=== PATIENT | male | born 1940 | race Caucasian/White ===

== ENCOUNTER 2017-12-08 15:46 | Emergency (ER) | payer MEDICARE, OTHER ==
[2017-12-08] MEDS ORDERED: BABY ASPIRIN 81 MG CHEW PO ONE (15:57)
[2017-12-08] MEDS ORDERED: MORPHINE SULFATE 2 MG INJ IV ONE (15:57)
[2017-12-08] MEDS ORDERED: Nitrostat 0.4 MG (ED) SL ONE ×2 (15:57→16:43)
--- NOTE | 2017-12-08 15:57 | ERPHSYRPT ---
- History of Present Illness Time Seen by Provider: 12/08/17 15:50 Historian: patient, family Exam Limitations: no limitations Physician History: 77 y/o white male with h/o cabg and ami in past presents with central substernal , sharp cp with radiation down bilat arms. began at 1330 today. similar episode 2 days ago but today sx have not spontaneously resolved. denies soa and denies abd pain. pt did not take any asa or use ntg. 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 pts cabg was performed at [facility] in May [address] Delgado Timing/Duration: today Activities at Onset: none Quality: sharpness, stabbing Location: substernal, central Chest Pain Radiation: arm (bilat) Severity of Pain-Max: moderate Severity of Pain-Current: moderate Modifying Factors: Improves With: nothing Associated Symptoms: No nausea, No vomiting, No palpitations, No heartburn, No abdominal pain, No shortness of breath, No cough, No hurts to breathe, No diaphoresis, No fatigue, No weakness, No syncope, No rash, No dizziness, No edema, No back pain Prior Chest Pain/Cardiac Workup: cardiac cath, echocardiography, heart attack Nitro Today/Relief: no nitro taken today Aspirin Treatment Today: no aspirin today Allergies/Adverse Reactions: No Known Drug Allergies Allergy (Verified 01/27/18 07:37) Home Medications: Aspirin 81 gm Chew [Baby Aspirin 81 mg Chew] 81 mg PO DAILY 12/08/17 [ History] Carvedilol 6.25 mg PO DAILY 12/08/17 [History] Fluticasone/Salmeterol 115/21 [Advair Hfa 115/21 Common canister*] 2 puffs PO DAILY 12/08/17 [History] Furosemide 40 mg PO DAILY 12/08/17 [History] Metformin HCl 500 mg [Glucophage 500 MG] 500 mg PO DAILY 12/08/17 [History ] Multivitamin/Iron/Folic Acid [Centrum Adults Tablet] 1 each PO DAILY 12/08/17 [ History] [place]-3 Fatty Acids/Fish Oil [Fish Oil 1,000 mg Capsule] 1 each PO DAILY [History] Potassium Chloride [Klor-Con M10] 10 mg PO DAILY 12/08/17 [History] Pravastatin Sodium [Pravachol] 40 mg PO DAILY 12/08/17 [History] Tiotropium [place] [Spiriva] 1 neb PO DAILY 12/08/17 [History] glipiZIDE [Glipizide] 5 mg PO BID 12/08/17 [History] - Review of Systems Constitutional: No Symptoms, No Fever Eyes: No Symptoms, No Discharge, No Eye Pain Ears, Nose, & Throat: No Symptoms, No Ear Pain Respiratory: No Symptoms, No Cough, No Dyspnea, No Stridor, No Wheezing Cardiac: Chest Pain, No Palpitations, No Syncope Abdominal/Gastrointestinal: No Symptoms, No Abdominal Pain, No Nausea, No Vomiting, No Diarrhea Genitourinary Symptoms: No Symptoms, No Dysuria, No Frequency, No Hematuria Musculoskeletal: No Symptoms, No Back Pain, No Neck Pain, No Fall, No Injury Skin: No Symptoms Neurological: No Symptoms Psychological: No Symptoms Endocrine: No Symptoms Hematologic/Lymphatic: No Symptoms Immunological/Allergic: No Symptoms All Other Systems: Reviewed and Negative - Past Medical History Pertinent Past Medical History: Yes Neurological History: No Pertinent History ENT History: No Pertinent History Cardiac History: Coronary Artery Disease, Myocardial Infarction ([place]) Respiratory History: No Pertinent History Endocrine Medical History: No Pertinent History Musculoskeletal History: No Pertinent History GI Medical History: No Pertinent History History: No Pertinent History Psycho-Social History: No Pertinent History Male Reproductive Disorders: No Pertinent History - Past Surgical History Past Surgical History: Yes Cardiac: CABG Respiratory: No Pertinent History Gastrointestinal: No Pertinent History Genitourinary: No Pertinent History Musculoskeletal: No Pertinent History Male Surgical History: No Pertinent History - Nursing Vital Signs Nursing Vital Signs: Initial Vital Signs Pulse Rate 69 12/08/17 15:56 Respiratory Rate 22 12/08/17 15:56 Blood Pressure 172/80 12/08/17 15:56 O2 Sat by Pulse Oximetry 96 12/08/17 15:56 Pain Scale Pain Intensity 0 - Physical Exam General Appearance: mild distress, alert, anxiety Eye Exam: PERRL/EOMI, eyes nml inspection Ears, Nose, Throat Exam: normal ENT inspection, TMs normal, moist mucous membranes Neck Exam: normal inspection, non-tender, supple, full range of motion Respiratory Exam: normal breath sounds, chest tenderness, lungs clear, No respiratory distress, No airway intact, No accessory muscle use, No rhonchi, No wheezing, No stridor Cardiovascular Exam: regular rate/rhythm, normal heart sounds, normal peripheral pulses Gastrointestinal/Abdomen Exam: soft, normal bowel sounds, No tenderness, No guarding, No rebound Rectal Exam: not done Back Exam: normal inspection, normal range of motion, No CVA tenderness, No vertebral tenderness Extremity Exam: normal inspection, normal range of motion, pelvis stable Neurologic Exam: alert, oriented x 3, cooperative, grey goods examiner II-XII nml as tested Skin Exam: normal color, warm, dry Lymphatic Exam: No adenopathy SpO2 Interpretation: normal Oxygen Delivery: Room Air - Course Nursing assessment & vital signs reviewed: Yes EKG Interpreted by Me: RATE, Sinus Rhythm, Left [place] Deviation, NORMAL INTERVALS , NORMAL QRS (no comparison EKG; lexiscan 07/07/17 no evidence of acute reversible ischemia), Non-specific ST Changes Ordered Tests: Medication Summary Discontinued Medications Generic Name Dose Route Start Last Admin Trade Name Freq PRN Reason Stop Dose Admin Aspirin 324 mg 12/08/17 15:57 12/08/17 16:51 Baby Aspirin 81 Mg Chew PO 12/08/17 15:58 324 mg STAT ONE Administration Aspirin Confirm 12/08/17 16:42 Baby Aspirin 81 Mg Chew Administered 12/08/17 16:43 Dose 324 mg .ROUTE .STK-MED ONE Morphine Sulfate 2 mg 12/08/17 15:57 12/08/17 16:51 Morphine Sulfate 2 Mg Inj IV 12/08/17 15:58 2 mg STAT ONE Administration Morphine Sulfate Confirm 12/08/17 16:43 Morphine Sulfate 2 Mg Inj Administered 12/08/17 16:44 Dose 2 mg .ROUTE .STK-MED ONE Nitroglycerin 0.4 mg 12/08/17 15:57 12/08/17 16:51 Nitrostat 0.4 Mg (Ed) SL 12/08/17 15:58 0.4 mg STAT ONE Administration Nitroglycerin Confirm 12/08/17 16:43 Nitrostat 0.4 Mg (Ed) Administered 12/08/17 16:44 Dose 0.4 mg SL .STK-MED ONE Lab/Rad Data: Laboratory Result Diagrams 12/08/17 15:57 12/08/17 15:57 Laboratory Results 12/08/17 12/08/17 12/08/17 Range/Units 15:57 15:57 15:57 WBC (4.0-10.5) K/mm3 RBC (4.1-5.6) M/mm3 Hgb (12.5-18.0) gm/dl Hct (42-50) % MCV (78-100) fl MCH (26-32) pg MCHC (32-36) g/dl RDW (11.5-14.0) % Plt Count (150-450) K/mm3 MPV (6-9.5) fl Gran % (36.0-66.0) % Eos # (Auto) (0-0.5) Absolute Lymphs (auto) (1.0-4.6) Absolute Monos (auto) (0.0-1.3) Lymphocytes % (24.0-44.0) % Monocytes % (0.0-12.0) % Eosinophils % (0.00-5.0) % Basophils % (0.0-0.4) % Absolute Granulocytes (1.4-6.9) Basophils # (0-0.4) PT 11.5 (8.83-12.87) SECONDS INR 0.99 (0.8-3.0) D-Dimer 801 H* (215-500) ng/mL Sodium 138 (137-145) mmol/L Potassium 4.6 (3.5-5.1) mmol/L Chloride 101 (98-107) mmol/L Carbon Dioxide 25 (22-30) mmol/L Anion Gap 16.6 H (5-15) MEQ/L BUN 22 H (9-20) mg/dL Creatinine 1.33 H (0.66-1.25) mg/dL Estimated GFR 55.6 ML/MIN Glucose 202 H (74-106) mg/dL Calcium 9.4 (8.4-10.2) mg/dL Total Bilirubin 0.60 (0.2-1.3) mg/dL AST 40 (17-59) U/L ALT 25 (0-50) U/L Alkaline Phosphatase 64 (38-126) U/L Troponin I 0.198 H* (0.000-0.034) ng/mL NT-Pro-B Natriuret Pep 1060 (0-1800) pg/mL Serum Total Protein 7.9 (6.3-8.2) g/dL Albumin 4.5 (3.5-5.0) g/dL 12/08/17 Range/Units 15:57 WBC 8.5 (4.0-10.5) K/mm3 RBC 5.34 (4.1-5.6) M/mm3 Hgb 15.4 (12.5-18.0) gm/dl Hct 45.3 (42-50) % MCV 84.8 (78-100) fl MCH 28.8 (26-32) pg MCHC 34.0 (32-36) g/dl RDW 13.9 (11.5-14.0) % Plt Count 193 (150-450) K/mm3 MPV 11.3 H (6-9.5) fl Gran % 55.4 (36.0-66.0) % Eos # (Auto) 0.33 (0-0.5) Absolute Lymphs (auto) 2.56 (1.0-4.6) Absolute Monos (auto) 0.86 (0.0-1.3) Lymphocytes % 30.2 (24.0-44.0) % Monocytes % 10.1 (0.0-12.0) % Eosinophils % 3.9 (0.00-5.0) % Basophils % 0.4 (0.0-0.4) % Absolute Granulocytes 4.71 (1.4-6.9) Basophils # 0.03 (0-0.4) PT (8.83-12.87) SECONDS INR (0.8-3.0) D-Dimer (215-500) ng/mL Sodium (137-145) mmol/L Potassium (3.5-5.1) mmol/L Chloride (98-107) mmol/L Carbon Dioxide (22-30) mmol/L Anion Gap (5-15) MEQ/L BUN (9-20) mg/dL Creatinine (0.66-1.25) mg/dL Estimated GFR ML/MIN Glucose (74-106) mg/dL Calcium (8.4-10.2) mg/dL Total Bilirubin (0.2-1.3) mg/dL AST (17-59) U/L ALT (0-50) U/L Alkaline Phosphatase (38-126) U/L Troponin I (0.000-0.034) ng/mL NT-Pro-B Natriuret Pep (0-1800) pg/mL Serum Total Protein (6.3-8.2) g/dL Albumin (3.5-5.0) g/dL - Progress Progress: improved, re-examined Air Movement: good Progress Note: 12/08/17 17:18 pt has an elevated d dimer and elevated troponin. 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 Nicholson, at 1710. i reviewed pts hx, condition, lab, ekg, cxr results with him. he is aware cta chest results pending. i will notify him if cta results positive. he accepts pt for transfer. he states no additional medications necessary at this time for transfer. Discussed with : Caprice Counseled pt/family regarding: lab results, diagnosis, need for follow-up, rad results - Departure Time of Disposition: 17:22 Departure Disposition: Transfer Clinical Impression: Chest pain, Elevated troponin, Elevated d-dimer Condition: Stable Critical Care Time: Yes Critical Care Time(excluding separately billable procedures): 30-74 minutes Referrals: CICI SAMUELS [Primary Care Provider] -
[2017-12-08 16:11] LABS: BASOPHIL % 0.4 % (0.0-0.4); Basophil (Absolute #) 0.03 (0-0.4); Eosinophil % 3.9 % (0.00-5.0); Eosinophil (Absolute #) 0.33 (0-0.5); Granulocyte Absolute (ANC) 4.71 (1.4-6.9); Granulocytes % 55.4 % (36.0-66.0); Hematocrit 45.3 % (42-50); Hemoglobin 15.4 gm/dl (12.5-18.0); Lymphocyte (Absolute #) 2.56 (1.0-4.6); Lymphocytes % 30.2 % (24.0-44.0); Mean Cell Volume 84.8 fl (78-100); Mean Corpuscular Hemoglobin 28.8 pg (26-32); Mean Platelet Volume 11.3 fl (6-9.5); Monocyte (Absolute #) 0.86 (0.0-1.3); Monocytes % 10.1 % (0.0-12.0); Platelet Count 193 K/mm3 (150-450); Red Blood Count 5.34 M/mm3 (4.1-5.6); Red Cell Distribution Width 13.9 % (11.5-14.0); White Blood Count 8.5 K/mm3 (4.0-10.5)
[2017-12-08 16:31] LABS: INR 0.99 (0.8-3.0)
[2017-12-08] MEDS ORDERED: BABY ASPIRIN 81 MG CHEW ONE (16:42)
[2017-12-08] MEDS ORDERED: MORPHINE SULFATE 2 MG INJ ONE (16:43)
[2017-12-08 16:44] LABS: ALBUMIN 4.5 g/dL (3.5-5.0); ANION GAP 16.6 MEQ/L (5-15); BILIRUBIN,TOTAL 0.6 mg/dL (0.2-1.3); Calcium 9.4 mg/dL (8.4-10.2); Creatinine 1 1.33 mg/dL (0.66-1.25); Potassium 4.6 mmol/L (3.5-5.1); Total Protein 7.9 g/dL (6.3-8.2)
--- NOTE | 2017-12-08 16:52 | XRAY ---
Exam: AP upright portable chest film from 12/08/2017. Comparison: AP portable chest film from 05/28/[address] of the chest without IV contrast from 12/14/2010. Indication: Chest pain and shortness of breath today, past history of "heart attack" and triple bypass surgery in 2010, history of COPD. Findings: The heart size appears within normal limits. Surgical clips overlie the left aspect of the heart. There are also midline sternal wires consistent with prior CABG. There is mild tortuosity of the descending thoracic aorta. There is mild elevation of the right hemidiaphragm. There is some subtle chronic peripheral interstitial lung markings at the peripheral aspect of the left lung and the right lung base which I believe are similar to 05/28/2010 and reflect chronic interstitial lung disease. Mild biapical pleural thickening/scarring is seen. No air space infiltrate, vascular congestion obvious lung mass, pneumothorax, or pleural fluid is seen. No acute osseous process is seen. Impression: 1. No findings to suggest focal pneumonia, heart failure/pulmonary edema, or other acute cardiopulmonary disease. 2. Mild chronic peripheral interstitial lung disease, mild elevation of the right hemidiaphragm, and evidence of prior CABG with midline sternotomy are again seen. These findings are essentially unchanged from 05/28/2010.
[2017-12-08 17:42] VITALS: BP 144/73; PULSE 61
[2017-12-08 18:13] VITALS: O2SAT 96
--- NOTE | 2017-12-08 21:13 | XRAY ---
Exam: CT of the chest with IV contrast per PE protocol from 12/08/2017. CTDI: 23.69 Comparison: AP upright portable chest film from 12/08/[address] of the chest without IV contrast from 12/14/2010. Indication: 77-year-old male with elevated d-dimer of 801. Chest pain and shortness of breath today, history of prior heart attack and triple coronary artery bypass surgery in 2010. History of COPD. Findings: Post-IV contrast axial images were obtained through the chest per PE protocol during automated injection of 100 cc of Isovue-370 contrast material. Reconstructed coronal MIP images as well as reconstructed sagittal images were created and reviewed. Findings: The pulmonary arteries enhance well revealing no defects to suggest clot/emboli. No thoracic aortic aneurysm or dissection is seen. Some atherosclerotic vascular calcification is seen within the thoracic aorta. The transverse heart size appears within normal limits. I believe there is some mild coronary artery vascular calcification within the left anterior descending coronary artery. There is evidence of prior CABG with midline sternotomy. There is no pericardial effusion. I believe there is both some left atrial and left ventricular enlargement. The thyroid gland appears relatively small. Scattered mediastinal and bilateral perihilar lymph nodes, right greater than left, are seen. These appear somewhat more prominent as compared to 12/14/2010. The largest lymph node on the left seen to the left of the proximal portion of the transverse aorta and measures about 1.3 cm in short axis. There is a lymph node within the AP window on the left which contains some eccentric calcification and measures 1.4 cm in short axis. One of the lymph nodes just anterior to the right mainstem bronchus contains some central calcification within it and measures 1.1 cm in short axis. There are also some granulomatous calcifications within the AP window on the left and the left hilum. There is a prominent lymph node seen just superior to the right main pulmonary artery measuring a maximum of 2.1 cm in short axis. Etiology of these lymph nodes is not clear. Although metastatic lymphadenopathy is possible, they could represent reactive lymph nodes that are simply more prominent than that seen 7 years ago. Correlate clinically. The trachea and major central branching bronchi appear open. Subpleural interstitial fibrotic changes are seen within both lung nielsen, greater on the left than the right. This is consistent with chronic interstitial lung disease/scarring. Some small pleural blebs are seen along the lateral pleural surface of the left lung. There is a 4 mm soft tissue nodule within the anterior aspect of the right lower lung field on axial image #31 of series #4 which I believe is unchanged in retrospect from 12/14/2010. This suggests a nonaggressive process. I also note a small curved elliptical nodular density seen within the anterior right lung base on axial image #33 of series #4 which measures a maximum of 9 mm in AP dimension and 5 mm in width. This may be slightly larger than that seen on 12/14/2010 by about 1 mm in each direction. However, this is not much change. Both of these nodular densities are seen adjacent to the minor fissure on the right. No other soft tissue lung nodules are seen. No new air space infiltrates/consolidations are seen. There is a subpleural calcified granuloma within the anterior aspect of the left upper lung field representing no change. There is mild chronic eventration of the right hemidiaphragm. Chronic pleural thickening and some calcification is seen at the posterior medial aspect of the right lower lung field. Aside from the pleural calcification, this appears similar. Mild pleural fat is also seen in the posterior lateral aspect of both lower lung nielsen. No pneumothorax or pleural effusion is seen. I see multiple calcifications within the posterior aspect of the gallbladder lumen consistent with cholelithiasis. The adrenal glands appear unremarkable. The remainder of the visualized upper abdomen appears unremarkable. The skeleton reveals no acute fracture or aggressive bone lesion. Mild anterior lateral vertebral endplate spurring is seen within the spine. Impression: 1. I see no evidence of acute pulmonary embolism. Also, no thoracic aortic aneurysm or dissection is seen. 2. Status post CABG. I believe there is mild left ventricular and left atrial enlargement. No pericardial effusion is seen. 3. 2 small relatively stable nodular densities are seen within the anterior aspect of the right lower lung field adjacent to the minor fissure. I don't believe this represents a significant change from 2010 in retrospect. See above. 4. There is peripheral chronic subpleural interstitial thickening and fibrosis consistent with chronic interstitial lung disease/scarring. This appears similar to the prior study. I also note some relatively chronic pleural fat density at the posterior lateral aspect of both lower lung nielsen as well as chronic mild posterior medial pleural thickening at the right lower lung field. Some mild pleural calcification is also seen at this latter site. 5. Enlarged mediastinal and perihilar lymph nodes are seen which have become more prominent as compared to 12/14/2010. See above. These lymph nodes could be reactive and due to and old granulomatous, inflammatory, or infectious process. The possibility of metastatic lymphadenopathy is not completely excluded. 6. Cholelithiasis, no change.
== END 2017-12-08 18:00 | disposition short-term general hospital (02) ==
LOC: ED 15:46
DX: R07.9 Chest pain, unspecified (principal); R77.8 Other specified abnormalities of plasma proteins; R79.1 Abnormal coagulation profile; Z95.1 Presence of aortocoronary bypass graft; I25.2 Old myocardial infarction; Z79.899 Other long term (current) drug therapy
CPT/HCPCS: 36000; 36415; 71045; 71260; 80053; 83880; 84484; 85025; 85379; 85610; 93005; 93041; 96374; 99285; J2270; Q9967; A9270-GY

== ENCOUNTER 2018-01-27 07:26 | Emergency (ER) | payer MEDICARE, OTHER ==
[2018-01-27 07:37] VITALS: PULSE 78
--- NOTE | 2018-01-27 07:45 | ERPHSYRPT ---
- History of Present Illness Time Seen by Provider: 01/27/18 07:41 Source: patient, family Patient Subjective Stated Complaint: pt here for not being able to void well nice last night and has some blood in urine Triage Nursing Assessment: pt alert, walked in, resp easy, skin w/d/p. abd distended, m no edema noted Physician History: 77 y/o white male with h/o cadz, left lower quad end colostomy post bowel resection for cancer, presents with urinary retention since yesterday afternoon. pt has had increasing pelvic pressure and noticed hematuria this am. pt has an appt with urologist at 0900 this am. Timing/Duration: yesterday Activites at Onset: none Quality: aching, burning, pressure Onset Location: suprapubic Pain Radiation: suprapubic Severity of Pain-Max: mild Severity of Pain-Current: mild Modifying Factors: Improves With: nothing Associated Symptoms: abdominal pain (suprapubic), dysuria Prior abdominal problems: other (colon resection) Allergies/Adverse Reactions: No Known Drug Allergies Allergy (Verified 01/27/18 07:37) Home Medications: Aspirin 81 gm Chew [Baby Aspirin 81 mg Chew] 81 mg PO DAILY 12/08/17 [ History] Carvedilol 6.25 mg PO DAILY 12/08/17 [History] Fluticasone/Salmeterol 115/21 [Advair Hfa 115/21 Common canister*] 2 puffs PO DAILY 12/08/17 [History] Furosemide 40 mg PO DAILY 12/08/17 [History] Metformin HCl 500 mg [Glucophage 500 MG] 500 mg PO DAILY 12/08/17 [History ] Multivitamin/Iron/Folic Acid [Centrum Adults Tablet] 1 each PO DAILY 12/08/17 [ History] [place]-3 Fatty Acids/Fish Oil [Fish Oil 1,000 mg Capsule] 1 each PO DAILY [History] Potassium Chloride [Klor-Con M10] 10 mg PO DAILY 12/08/17 [History] Pravastatin Sodium [Pravachol] 40 mg PO DAILY 12/08/17 [History] Tiotropium [place] [Spiriva] 1 neb PO DAILY 12/08/17 [History] glipiZIDE [Glipizide] 5 mg PO BID 12/08/17 [History] Hx Tetanus, Diphtheria Vaccination/Date Given: No Hx Influenza Vaccination/Date Given: No Hx Pneumococcal Vaccination/Date Given: No Immunizations Up to Date: Yes - Past Medical History Pertinent Past Medical History: Yes Neurological History: No Pertinent History ENT History: No Pertinent History Cardiac History: Coronary Artery Disease, Myocardial Infarction ([place]) Respiratory History: No Pertinent History Endocrine Medical History: No Pertinent History Musculoskeletal History: No Pertinent History GI Medical History: No Pertinent History History: No Pertinent History Psycho-Social History: No Pertinent History Male Reproductive Disorders: No Pertinent History Other Medical History: hx of rectal cancer, - Past Surgical History Past Surgical History: Yes Cardiac: CABG, Cardiac Catheterization, Cardiac Stent Respiratory: No Pertinent History Gastrointestinal: No Pertinent History Genitourinary: No Pertinent History Musculoskeletal: No Pertinent History Male Surgical History: No Pertinent History Other Surgical History: colostomy bag - Social History Smoking Status: Former smoker Exposure to second hand smoke: No Drug Use: none Patient Lives Alone: No - Review of Systems Constitutional: No Symptoms, No Fever Eyes: No Symptoms Ears, Nose, & Throat: No Symptoms Respiratory: No Symptoms Cardiac: No Symptoms Abdominal/Gastrointestinal: No Symptoms Genitourinary Symptoms: Dysuria, Urinary Retention Musculoskeletal: No Symptoms Skin: No Symptoms Neurological: No Symptoms Psychological: No Symptoms Endocrine: No Symptoms Hematologic/Lymphatic: No Symptoms Immunological/Allergic: No Symptoms All Other Systems: Reviewed and Negative - Nursing Vital Signs Nursing Vital Signs: Initial Vital Signs Temperature 97.5 F 01/27/18 07:31 Pulse Rate 78 01/27/18 07:31 Respiratory Rate 18 01/27/18 07:31 Blood Pressure 132/65 01/27/18 07:31 O2 Sat by Pulse Oximetry 98 01/27/18 07:31 Pain Scale Pain Intensity 0 - Physical Exam General Appearance: mild distress, alert, anxiety Eye Exam: PERRL/EOMI Ears, Nose, Throat Exam: normal ENT inspection Neck Exam: normal inspection, non-tender, supple, full range of motion Respiratory Exam: normal breath sounds, lungs clear, airway intact, No chest tenderness, No respiratory distress, No accessory muscle use, No rhonchi, No wheezing, No stridor Cardiovascular Exam: regular rate/rhythm, normal heart sounds, normal peripheral pulses Gastrointestinal/Abdomen Exam: soft, normal bowel sounds, tenderness (mild suprapubic), distention (mild suprapubic), No guarding, No rebound Rectal Exam: not done Back Exam: normal inspection, normal range of motion, No CVA tenderness, No vertebral tenderness Extremity Exam: normal inspection, normal range of motion, pelvis stable Neurologic Exam: alert, oriented x 3, cooperative, matlab developer II-XII nml as tested Skin Exam: normal color, warm, dry Lymphatic Exam: No adenopathy SpO2 Interpretation: normal SpO2: 98 Oxygen Delivery: Room Air - Course Nursing assessment & vital signs reviewed: Yes Ordered Tests: Active Orders 24 hr Category Date Time Status Catheter-Ephraim Roach STAT Care 01/27/18 07:46 Active CULTURE,URINE Stat Lab 01/27/18 08:07 Received UA W/RFX UR CULTURE Stat Lab 01/27/18 08:07 Completed Lab/Rad Data: Laboratory Results 01/27/18 Range/Units 08:07 Urine Color YELLOW (YELLOW) Urine Appearance SLIGHTLY CLOUDY (CLEAR) Urine pH 5.0 (5-6) Ur Specific [place] 1.006 (1.005-1.025) Urine Protein NEGATIVE (Negative) Urine Ketones NEGATIVE (NEGATIVE) Urine Blood LARGE (0-5) Stanley/ul Urine Nitrite NEGATIVE (NEGATIVE) Urine Bilirubin NEGATIVE (NEGATIVE) Urine Urobilinogen NEGATIVE (0-1) mg/dL Ur Leukocyte Esterase LARGE (NEGATIVE) Urine WBC (Auto) 16-25 (0-5) /HPF Urine RBC (Auto) >101 (0-2) /HPF U Epithel Cells (Auto) NONE (FEW) /HPF Urine Bacteria (Auto) MODERATE (NEGATIVE) /HPF Urine Mucus (Auto) SLIGHT (NEGATIVE) /HPF Urine Culture Reflexed YES (NO) Urine Glucose NEGATIVE (NEGATIVE) mg/dL - Departure Time of Disposition: 08:44 Departure Disposition: Home Clinical Impression: UTI (urinary tract infection) Condition: Stable Critical Care Time: No Referrals: CICI SAMUELS [Primary Care Provider] - Additional Instructions: drink plenty of fluids. follow up with urologist this morning. take medications as prescribed. routine roach catheter care Prescriptions: Ciprofloxacin [Cipro 500 MG] 500 mg PO BID #14 tablet
[2018-01-27 08:30] LABS: Appearance SLIGHTLY CLOUDY (CLEAR); Bilirubin NEGATIVE (NEGATIVE); Blood LARGE Ery/ul (0-5); Glucose NEGATIVE (NEGATIVE); Ketones NEGATIVE (NEGATIVE); Leukocyte Esterase LARGE (NEGATIVE); Nitrite NEGATIVE (NEGATIVE); Protein,Urine Dip NEGATIVE (Negative); Specific Gravity 1.006 (1.005-1.025); Urobilinogen NEGATIVE mg/dL (0-1)
[2018-01-27 09:14] VITALS: BP 122/65; O2SAT 97
== END 2018-01-27 08:50 | disposition home or self-care (01) ==
LOC: ED 07:26
DX: N39.0 Urinary tract infection, site not specified (principal); R31.9 Hematuria, unspecified; Z79.899 Other long term (current) drug therapy
CPT/HCPCS: 51702; 81001; 87077; 87086; 87186; 99284

== ENCOUNTER 2021-11-29 15:20 | Inpatient (IN) | payer MEDICARE, OTHER ==
--- NOTE | 2021-11-29 16:13 | ERPHSYRPT ---
- History of Present Illness Time Seen by Provider: 11/29/21 15:45 Source: patient Exam Limitations: no limitations Patient Subjective Stated Complaint: Pt was at Dr. Vasques's office and his oxygen saturation was in the 80's and they told him to come to the ER, they told him that they think he may have some fluid on his heart, pt had began getting short of breath 10 days ago Triage Nursing Assessment: Pt brought to the ER by his , tachycardic, denies pain, had been getting short of breath for 10 days and went to see [facility] today and they sent him to the ER due to his oxygen saturation was in the 80's, it was at92% upon arrival to the ER but he came in a wheelchair and pt had walked into the [facility], pulses normal, skin n/w/d Physician History: Patient is an 81-year-old male presents emergency department as a referral from his [facility]. Patient was in the [facility] office today. Vitals were obtained and he was found to be hypoxic in the 80s. Patient was advised to come to our ED for further evaluation. Upon arrival to our ED patient's O2 saturation on room air was 92%. Patient reports that his [facility] advised that he may have fluid around his heart. Patient reports that he has been experiencing some shortness of breath for approximately 10 days. Patient denies chest pain. No nausea vomiting or diaphoresis. Symptoms are constant. Symptoms are moderate in intensity. No specific worsening improving factors. Patient voices no other complaints concerns at this time. Portions of this note were created with voice recognition technology. There may be grammatical, spelling, punctuation or sound alike errors Timing/Duration: today Severity: moderate Modifying Factors: Improves With: other (Activity) Associated Symptoms: denies symptoms, other (Patient denies chest pain) Allergies/Adverse Reactions: No Known Drug Allergies Allergy (Verified 11/29/21 15:55) Home Medications: Aspirin 81 gm Chew [Baby Aspirin 81 mg Chew] 81 mg PO DAILY 12/08/17 [History] Fluticasone/Salmeterol 115/21 [Advair Hfa 115/21 Common canister*] 2 puffs PO DAILY 12/08/17 [History] Furosemide 20 mg PO DAILY 12/08/17 [History] Metformin HCl 500 mg [Glucophage 500 MG] 500 mg PO DAILY 12/08/17 [History] Multivitamin/Iron/Folic Acid [Centrum Adults Tablet] 1 each PO DAILY 12/08/17 [History] [place]-3 Fatty Acids/Fish Oil [Fish Oil 1,000 mg Capsule] 1 each PO DAILY 12/08/17 [History] Pravastatin Sodium [Pravachol] 40 mg PO DAILY 12/08/17 [History] Tiotropium [place] [Spiriva] 1 neb PO UD 12/08/17 [History] carvediloL [Carvedilol] 12.5 mg PO DAILY 12/08/17 [History] glipiZIDE [Glipizide] 2.5 mg PO BID 12/08/17 [History] Sacubitril/Valsartan [Entresto 49 mg-51 mg Tablet] 1 tab PO BID 11/29/21 [History] Tamsulosin HCl 0.4 mg [Flomax 0.4 MG] 0.4 mg PO DAILY 11/29/21 [History] Hx Tetanus, Diphtheria Vaccination/Date Given: No Hx Influenza Vaccination/Date Given: No Hx Pneumococcal Vaccination/Date Given: Yes Travel Risk - International Travel Have you traveled outside of the country in past 3 weeks: No - Coronavirus Screening Are you exhibiting any of the following symptoms?: No - Vaccine Status Have you recieved a Covid-19 vaccination: Yes [employer]: Moderna - Vaccination Dates Date of 2cond Vaccination (if applicable): 2020 - Review of Systems Constitutional: No Symptoms, No Fever, No Chills Eyes: No Symptoms Ears, Nose, & Throat: No Symptoms Respiratory: No Symptoms, No Cough, No Dyspnea Cardiac: No Symptoms, No Chest Pain, No Edema, No Syncope Abdominal/Gastrointestinal: No Symptoms, No Abdominal Pain, No Nausea, No Vomiting, No Diarrhea Genitourinary Symptoms: No Symptoms, No Dysuria Musculoskeletal: No Symptoms, No Back Pain, No Neck Pain Skin: No Symptoms, No Rash Neurological: No Symptoms, No Dizziness, No Focal Weakness, No Sensory Changes Psychological: No Symptoms Endocrine: No Symptoms Hematologic/Lymphatic: No Symptoms Immunological/Allergic: No Symptoms All Other Systems: Reviewed and Negative - Past Medical History Pertinent Past Medical History: Yes Neurological History: No Pertinent History ENT History: No Pertinent History Cardiac History: Coronary Artery Disease, Myocardial Infarction ([place]) Respiratory History: No Pertinent History Endocrine Medical History: No Pertinent History Musculoskeletal History: No Pertinent History GI Medical History: No Pertinent History History: No Pertinent History Psycho-Social History: No Pertinent History Male Reproductive Disorders: No Pertinent History Other Medical History: hx of rectal cancer, - Past Surgical History Past Surgical History: Yes Cardiac: CABG, Cardiac Catheterization, Cardiac Stent Respiratory: No Pertinent History Gastrointestinal: No Pertinent History Genitourinary: No Pertinent History Musculoskeletal: No Pertinent History Male Surgical History: No Pertinent History Other Surgical History: colostomy bag - Social History Smoking Status: Former smoker Exposure to second hand smoke: No Drug Use: none Patient Lives Alone: No - Nursing Vital Signs Nursing Vital Signs: Initial Vital Signs Temperature 97.4 F 11/29/21 15:36 Pulse Rate 104 H 11/29/21 15:36 Respiratory Rate 23 11/29/21 15:36 Blood Pressure 125/74 11/29/21 15:36 O2 Sat by Pulse Oximetry 92 L 11/29/21 15:36 Pain Scale Pain Intensity 0 - Physical Exam General Appearance: no apparent distress, alert Eye Exam: PERRL/EOMI, eyes nml inspection Ears, Nose, Throat Exam: normal ENT inspection, TMs normal, pharynx normal, moist mucous membranes Neck Exam: normal inspection, non-tender, supple, full range of motion Respiratory Exam: normal breath sounds, lungs clear, airway intact, No respiratory distress Cardiovascular Exam: regular rate/rhythm, normal heart sounds, normal peripheral pulses Gastrointestinal/Abdomen Exam: soft, normal bowel sounds, No tenderness, No mass Back Exam: normal inspection, normal range of motion, No CVA tenderness, No vertebral tenderness Extremity Exam: normal inspection, normal range of motion, pelvis stable Neurologic Exam: alert, oriented x 3, cooperative, normal mood/affect, nml cerebellar function, nml station & gait, sensation nml, No motor deficits Skin Exam: normal color, warm, dry, No rash Lymphatic Exam: No adenopathy SpO2 Interpretation: normal SpO2: 94 O2 Delivery: Room Air - Course Nursing assessment & vital signs reviewed: Yes EKG Interpreted by Me: RATE (104), A-fib, NORMAL AXIS - CT Exams Chest CT Interpretation: Tele-radiologist Report (CT chest reveals no PE. Borderline cardiomegaly. Diffuse bilateral pleural parenchymal scarring/fibrosis. Minimal bilateral calcified pleural plaquing and multiple enlarged mediastinal adenopathy large gallstones nothing new) Ordered Tests: Active Orders 24 hr Category Date Time Status Gravity Prospecting Operator STAT Care 11/29/21 16:05 Active EKG-ER Only STAT Care 11/29/21 16:04 Active IV Insertion STAT Care 11/29/21 16:04 Active Pulse Oximetry (ED) STAT Care 11/29/21 16:04 Active CHEST 1 VIEW (PORTABLE) Stat Exams 11/29/21 16:05 Taken CHEST WITH CONTRAST [CT] Stat Exams 11/29/21 18:10 Taken BLOOD CULTURE Stat Lab 11/29/21 19:38 Received CBC W DIFF Stat Lab 11/29/21 16:25 Completed CMP Stat Lab 11/29/21 16:25 Completed NT PRO BNP Stat Lab 11/29/21 16:25 Completed TROPONIN Q4H Lab 11/29/21 16:25 Completed TROPONIN Q4H Lab 11/29/21 19:38 Completed TROPONIN Q4H Lab 11/30/21 00:15 Ordered Transfer Order Routine Transfer 11/29/21 Ordered Medication Summary Discontinued Medications Generic Name Dose Route Start Last Admin Trade Name Freq PRN Reason Stop Dose Admin Enoxaparin Sodium 90 mg 11/29/21 21:09 11/29/21 21:21 Enoxaparin Sodium 80 Mg/0.8 Ml Syringe SQ 11/29/21 21:10 90 mg STAT ONE Administration Furosemide 40 mg 11/29/21 18:28 11/29/21 19:16 Furosemide 40 Mg/4 Ml Vial IV 11/29/21 18:29 40 mg STAT ONE Administration Furosemide Confirm 11/29/21 18:43 Furosemide 40 Mg/4 Ml Vial Administered 11/29/21 18:44 Dose 40 mg .ROUTE .STK-MED ONE Heparin Sodium (Beef Lung) Confirm 11/29/21 17:59 Heparin 5000 Units/0.5 Ml 5,000 Unit/0.5 Ml Syr Administered 11/29/21 18:00 Dose 5,000 unit .ROUTE .STK-MED ONE Heparin Sodium/Dextrose Confirm 11/29/21 17:59 Heparin 25,000 Units/D5w: Use Order Set Martha Administered 11/29/21 18:00 Dose 25,000 units in 250 mls @ ud IV .STK-MED ONE Lab/Rad Data: Laboratory Result Diagrams 11/29/21 16:25 11/29/21 16:25 Laboratory Results 11/29/21 11/29/21 11/29/21 Range/Units 20:48 19:38 16:25 WBC (4.0-10.5) x10^3/uL RBC (4.1-5.6) x10^6/uL Hgb (12.5-18.0) g/dL Hct (42-50) % MCV (78-100) fL MCH (26-32) pg MCHC (32-36) g/dL RDW (11.5-14.0) % Plt Count (150-450) x10^3/uL MPV (7.5-11.0) fL Gran % (36.0-66.0) % Immature Gran % (Auto) (0.00-0.4) % Nucleat RBC Rel Count (0.00-0.1) % Eos # (Auto) (0-0.5) x10^3/uL Immature Gran # (Auto) (0.00-0.03) x10^3u/L Absolute Lymphs (auto) (1.0-4.6) x10^3/uL Absolute Monos (auto) (0.0-1.3) x10^3/uL Absolute Nucleated RBC (0.00-0.01) x10^3u/L Lymphocytes % (24.0-44.0) % Monocytes % (0.0-12.0) % Eosinophils % (0.00-5.0) % Basophils % (0.0-0.4) % Absolute Granulocytes (1.4-6.9) x10^3/uL Basophils # (0-0.4) x10^3/uL Sodium (137-145) mmol/L Potassium (3.5-5.1) mmol/L Chloride (98-107) mmol/L Carbon Dioxide (22-30) mmol/L Anion Gap (5-15) MEQ/L BUN (9-20) mg/dL Creatinine (0.66-1.25) mg/dL Estimated GFR ML/MIN Glucose (74-106) mg/dL Calcium (8.4-10.2) mg/dL Total Bilirubin (0.2-1.3) mg/dL AST (17-59) U/L ALT (0-50) U/L Alkaline Phosphatase (38-126) U/L Troponin I 0.035 H 0.037 H* (0.000-0.034) ng/mL NT-Pro-B Natriuret Pep (0-1800) pg/mL Serum Total Protein (6.3-8.2) g/dL Albumin (3.5-5.0) g/dL Influenza Type A Ag NEGATIVE (NEGATIVE) Influenza Type B Ag NEGATIVE (NEGATIVE) RSV (PCR) NEGATIVE (Negative) SARS-CoV-2 (PCR) NEGATIVE (NEGATIVE) 11/29/21 11/29/21 Range/Units 16:25 16:25 WBC 6.3 (4.0-10.5) x10^3/uL RBC 4.22 (4.1-5.6) x10^6/uL Hgb 12.0 L (12.5-18.0) g/dL Hct 37.7 L (42-50) % MCV 89.3 (78-100) fL MCH 28.4 (26-32) pg MCHC 31.8 L (32-36) g/dL RDW 14.0 (11.5-14.0) % Plt Count 214 (150-450) x10^3/uL MPV 9.7 (7.5-11.0) fL Gran % 68.0 H (36.0-66.0) % Immature Gran % (Auto) 0.3 (0.00-0.4) % Nucleat RBC Rel Count 0.0 (0.00-0.1) % Eos # (Auto) 0.30 (0-0.5) x10^3/uL Immature Gran # (Auto) 0.02 (0.00-0.03) x10^3u/L Absolute Lymphs (auto) 1.10 (1.0-4.6) x10^3/uL Absolute Monos (auto) 0.56 (0.0-1.3) x10^3/uL Absolute Nucleated RBC 0.00 (0.00-0.01) x10^3u/L Lymphocytes % 17.5 L (24.0-44.0) % Monocytes % 8.9 (0.0-12.0) % Eosinophils % 4.8 (0.00-5.0) % Basophils % 0.5 (0.0-0.4) % Absolute Granulocytes 4.29 (1.4-6.9) x10^3/uL Basophils # 0.03 (0-0.4) x10^3/uL Sodium 139 (137-145) mmol/L Potassium 3.7 (3.5-5.1) mmol/L Chloride 104 (98-107) mmol/L Carbon Dioxide 28 (22-30) mmol/L Anion Gap 9.7 (5-15) MEQ/L BUN 18 (9-20) mg/dL Creatinine 1.22 (0.66-1.25) mg/dL Estimated GFR > 60.0 ML/MIN Glucose 123 H (74-106) mg/dL Calcium 8.5 (8.4-10.2) mg/dL Total Bilirubin 0.50 (0.2-1.3) mg/dL AST 18 (17-59) U/L ALT 14 (0-50) U/L Alkaline Phosphatase 49 (38-126) U/L Troponin I (0.000-0.034) ng/mL NT-Pro-B Natriuret Pep 7650 H (0-1800) pg/mL Serum Total Protein 7.0 (6.3-8.2) g/dL Albumin 3.7 (3.5-5.0) g/dL Influenza Type A Ag (NEGATIVE) Influenza Type B Ag (NEGATIVE) RSV (PCR) (Negative) SARS-CoV-2 (PCR) (NEGATIVE) - Progress Progress: improved Progress Note: 81-year-old male presents to our ED for evaluation of shortness of breath. Work-up reveals exacerbation of existing congestive heart failure. Patient has a history of COPD however his lung exam is normal. CT chest negative for PE. BNP elevated. Patient received Lasix in our ED. EKG shows atrial fibrillation. Patient denies a history of A. fib. This is likely new onset A. fib. Patient received a dose of weight-based Lovenox anticoagulation. Patient will require admission for further evaluation and treatment. COVID test pending. Initial troponin was positive at 0.0375. After administration of Lasix repeat troponin performed. Repeat troponin improved from previous. Plan of care discussed with patient. He agrees to admission at [facility] for further evaluation and treatment. Portions of this note were created with voice recognition technology. There may be grammatical, spelling, punctuation or sound alike errors 11/29/21 21:10 COVID test negative. Case discussed Dr. Espinoza accepts admission to observation. 11/29/21 22:23 Counseled pt/family regarding: lab results, diagnosis, rad results - Departure Departure Disposition: Observation Clinical Impression: Hypoxia, SOB (shortness of breath), Cholelithiasis, CHF (congestive heart failure), Elevated troponin, Elevated brain natriuretic peptide (BNP) level, Atrial fibrillation Condition: Stable Critical Care Time: No Referrals: CICI LAUREN [Primary Care Provider] - Follow up/PCP as directed Instructions: Heart Failure
[2021-11-29 16:36] LABS: Absolute Neutrophil Ct (ANC) 4.29 x10^3/uL (1.4-6.9); Basophil (Absolute #) 0.03 x10^3/uL (0-0.4); Eosinophil % 4.8 % (0.00-5.0); Hematocrit 37.7 % (42-50); Lymphocytes % 17.5 % (24.0-44.0); Mean Cell Volume 89.3 fL (78-100); Mean Corpuscular Hemoglobin 28.4 pg (26-32); Mean Corpuscular Hgb Concent. 31.8 g/dL (32-36); Mean Platelet Volume 9.7 fL (7.5-11.0); Monocyte (Absolute #) 0.56 x10^3/uL (0.0-1.3); Monocytes % 8.9 % (0.0-12.0); Platelet Count 214 x10^3/uL (150-450); Red Blood Count 4.22 x10^6/uL (4.1-5.6); White Blood Count 6.3 x10^3/uL (4.0-10.5)
[2021-11-29 16:58] LABS: ALBUMIN 3.7 g/dL (3.5-5.0); ALKALINE PHOSPHATASE 49 U/L (38-126); ANION GAP 9.7 MEQ/L (5-15); BLOOD UREA NITROGEN 18 mg/dL (9-20); CHLORIDE 104 mmol/L (98-107); Calcium 8.5 mg/dL (8.4-10.2); Carbon Dioxide 28 mmol/L (22-30); Creatinine 1 1.22 mg/dL (0.66-1.25); EST GLOMERULAR FILTRATION RATE > 60.0 ML/MIN; Glucose 123 mg/dL (74-106); NT PRO BNP 7650 pg/mL (0-1800); Potassium 3.7 mmol/L (3.5-5.1); SGOT/AST 18 U/L (17-59); SGPT/ALT 14 U/L (0-50); SODIUM 139 mmol/L (137-145)
[2021-11-29] MEDS ORDERED: Heparin 25,000 units/D5W: USE ORDER SET PROTO 0 UNITS/0 ML BAG IV ONE (17:59)
[2021-11-29] MEDS ORDERED: HEPARIN 5000 UNITS/0.5 ML (HIGH RISK MED) ONE (17:59)
[2021-11-29] MEDS ORDERED: Lasix 40 MG/4 ML IV ONE (18:28)
[2021-11-29] MEDS ORDERED: Lasix 40 MG/4 ML ONE (18:43)
[2021-11-29] MEDS ORDERED: ENOXAPARIN SODIUM SQ ONE (21:09)
[2021-11-29 21:26] LABS: INFLUENZA A NEGATIVE (NEGATIVE); INFLUENZA B NEGATIVE (NEGATIVE); RESPIRATORY SYNCTIAL VIRUS NEGATIVE (Negative); SARS-CoV-2 Xpert Express NEGATIVE (NEGATIVE)
[2021-11-30 02:19] LABS: Hematocrit 38.2 % (42-50); Hemoglobin 12.1 g/dL (12.5-18.0); Mean Cell Volume 88.8 fL (78-100); Mean Corpuscular Hemoglobin 28.1 pg (26-32); Mean Corpuscular Hgb Concent. 31.7 g/dL (32-36); Mean Platelet Volume 9.9 fL (7.5-11.0); Platelet Count 234 x10^3/uL (150-450); Red Cell Distribution Width 13.9 % (11.5-14.0); White Blood Count 7.7 x10^3/uL (4.0-10.5)
--- NOTE | 2021-11-30 07:31 | XRAY ---
Indication: Short of breath. Comparison: February 13, 2018 Portable chest demonstrates new left mid to lower lung and lesser degree right base interstitial alveolar opacities without consolidation/large effusion. Heart not enlarged again with CABG. Bony thorax intact again with osteopenia and degenerative changes.
--- NOTE | 2021-11-30 08:25 | PCM.HP ---
History of Present Illness - Chief Complaint Chief Complaint: CHF, Atrial Fibrillation WITHOUT Rapid response History of Present Illness: is a 81 year old male who saw Dr Vasques in office, he notes he had been feeling short of breath and swollen for several days. he was hypoxic and v olume overloaded in office so sent to ER, no prior hx of a fib. - Review of Systems Constitutional: No Fever, No Chills Respiratory: Short Of Breath Cardiac: Edema, Orthopnea, No Chest Pain Abdominal/Gastrointestinal: No Abdominal Pain, No Nausea, No Vomiting, No Diarrhea All Other Systems: Reviewed and Negative Medications & Allergies Home Medications: Home Medication List Aspirin 81 gm Chew [Baby Aspirin 81 mg Chew] 81 mg PO DAILY 12/08/17 [History Confirmed 11/29/21] Fluticasone/Salmeterol 115/21 [Advair Hfa 115/21 Common canister*] 2 puffs PO DAILY 12/08/17 [History Confirmed 11/29/21] Furosemide 20 mg PO DAILY 12/08/17 [History Confirmed 11/29/21] Metformin HCl 500 mg [Glucophage 500 MG] 500 mg PO DAILY 12/08/17 [History Confirmed 11/29/21] Multivitamin/Iron/Folic Acid [Centrum Adults Tablet] 1 each PO DAILY 12/08/17 [History Confirmed 11/29/21] [place]-3 Fatty Acids/Fish Oil [Fish Oil 1,000 mg Capsule] 1 each PO DAILY 12/08/17 [History Confirmed 11/29/21] Pravastatin Sodium [Pravachol] 40 mg PO DAILY 12/08/17 [History Confirmed 11/29/21] Tiotropium [place] [Spiriva] 1 neb PO UD 12/08/17 [History Confirmed 11/29/21] carvediloL [Carvedilol] 12.5 mg PO DAILY 12/08/17 [History Confirmed 11/29/21] glipiZIDE [Glipizide] 2.5 mg PO BID 12/08/17 [History Confirmed 11/29/21] Sacubitril/Valsartan [Entresto 49 mg-51 mg Tablet] 1 tab PO BID 11/29/21 [History Confirmed 11/29/21] Tamsulosin HCl 0.4 mg [Flomax 0.4 MG] 0.4 mg PO DAILY 11/29/21 [History Confirmed 11/29/21] Allergies/Adverse Reactions: Allergies Allergy/AdvReac Type Severity Reaction Status Date / Time No Known Drug Allergies Allergy Verified 11/29/21 15:55 - Past Medical History Past Medical History: Yes Neurological History: No Pertinent History ENT History: No Pertinent History Cardiac History: Congestive Heart Failure, Coronary Artery Disease, Myocardial Infarction ([place]) Respiratory History: No Pertinent History Endocrine Medical History: No Pertinent History Musculoskelatal History: No Pertinent History GI Medical History: No Pertinent History History: No Pertinent History Pyscho-Social History: No Pertinent History Male Reproductive Disorders: No Pertinent History Comment: hx of rectal cancer, - Past Surgical History Past Surgical History: Yes Cardiac History: CABG, Cardiac Catheterization, Cardiac Stent Respiratory Surgery: No Pertinent History GI Surgical History: No Pertinent History Genitourinary Surgical Hx: No Pertinent History Musculskeletal Surgical Hx: No Pertinent History Male Surgical History: No Pertinent History Other Surgical History: colostomy bag - Social History Smoking Status: Smoker, status unknown Exposure to second hand smoke: No Alcohol: Rarely Drug Use: none - Physical Exam Vital Signs: Vital Signs - 24 hr Temp Pulse Resp BP Pulse Ox 11/30/21 03:50 97.8 F 97 H 17 125/71 96 11/29/21 23:19 96 H 18 95 11/29/21 23:04 97.8 F 126 H 19 107/68 95 11/29/21 22:30 94 L 11/29/21 22:00 115 H 24 103/70 97 11/29/21 21:00 110 H 108/87 97 11/29/21 20:05 112 H 19 116/78 94 L 11/29/21 19:10 106 H 19 117/78 94 L 11/29/21 18:30 106 H 33 H 117/78 94 L 11/29/21 16:42 106 H 33 H 107/71 94 L 11/29/21 15:36 97.4 F 104 H 29 H 125/74 94 L General Appearance: no apparent distress Neurologic Exam: alert, oriented x 3 Respiratory Exam: crackles/rales Cardiovascular Exam: irregular Gastrointestinal/Abdomen Exam: soft, normal bowel sounds, No tenderness, No mass Extremity Exam: pedal edema Results - Labs Lab/Micro Results: Lab Results-Last 24 Hours 11/29/21 11/29/21 11/29/21 Range/Units 16:25 16:25 16:25 WBC 6.3 (4.0-10.5) x10^3/uL RBC 4.22 (4.1-5.6) x10^6/uL Hgb 12.0 L (12.5-18.0) g/dL Hct 37.7 L (42-50) % MCV 89.3 (78-100) fL MCH 28.4 (26-32) pg MCHC 31.8 L (32-36) g/dL RDW 14.0 (11.5-14.0) % Plt Count 214 (150-450) x10^3/uL MPV 9.7 (7.5-11.0) fL Gran % 68.0 H (36.0-66.0) % Immature Gran % (Auto) 0.3 (0.00-0.4) % Nucleat RBC Rel Count 0.0 (0.00-0.1) % Eos # (Auto) 0.30 (0-0.5) x10^3/uL Immature Gran # (Auto) 0.02 (0.00-0.03) x10^3u/L Absolute Lymphs (auto) 1.10 (1.0-4.6) x10^3/uL Absolute Monos (auto) 0.56 (0.0-1.3) x10^3/uL Absolute Nucleated RBC 0.00 (0.00-0.01) x10^3u/L Lymphocytes % 17.5 L (24.0-44.0) % Monocytes % 8.9 (0.0-12.0) % Eosinophils % 4.8 (0.00-5.0) % Basophils % 0.5 (0.0-0.4) % Absolute Granulocytes 4.29 (1.4-6.9) x10^3/uL Basophils # 0.03 (0-0.4) x10^3/uL Sodium 139 (137-145) mmol/L Potassium 3.7 (3.5-5.1) mmol/L Chloride 104 (98-107) mmol/L Carbon Dioxide 28 (22-30) mmol/L Anion Gap 9.7 (5-15) MEQ/L BUN 18 (9-20) mg/dL Creatinine 1.22 (0.66-1.25) mg/dL Estimated GFR > 60.0 ML/MIN Glucose 123 H (74-106) mg/dL Calcium 8.5 (8.4-10.2) mg/dL Total Bilirubin 0.50 (0.2-1.3) mg/dL AST 18 (17-59) U/L ALT 14 (0-50) U/L Alkaline Phosphatase 49 (38-126) U/L Troponin I 0.037 H* (0.000-0.034) ng/mL NT-Pro-B Natriuret Pep 7650 H (0-1800) pg/mL Serum Total Protein 7.0 (6.3-8.2) g/dL Albumin 3.7 (3.5-5.0) g/dL Influenza Type A Ag (NEGATIVE) Influenza Type B Ag (NEGATIVE) RSV (PCR) (Negative) SARS-CoV-2 (PCR) (NEGATIVE) 11/29/21 11/29/21 11/30/21 Range/Units 19:38 20:48 02:04 WBC (4.0-10.5) x10^3/uL RBC (4.1-5.6) x10^6/uL Hgb (12.5-18.0) g/dL Hct (42-50) % MCV (78-100) fL MCH (26-32) pg MCHC (32-36) g/dL RDW (11.5-14.0) % Plt Count (150-450) x10^3/uL MPV (7.5-11.0) fL Gran % (36.0-66.0) % Immature Gran % (Auto) (0.00-0.4) % Nucleat RBC Rel Count (0.00-0.1) % Eos # (Auto) (0-0.5) x10^3/uL Immature Gran # (Auto) (0.00-0.03) x10^3u/L Absolute Lymphs (auto) (1.0-4.6) x10^3/uL Absolute Monos (auto) (0.0-1.3) x10^3/uL Absolute Nucleated RBC (0.00-0.01) x10^3u/L Lymphocytes % (24.0-44.0) % Monocytes % (0.0-12.0) % Eosinophils % (0.00-5.0) % Basophils % (0.0-0.4) % Absolute Granulocytes (1.4-6.9) x10^3/uL Basophils # (0-0.4) x10^3/uL Sodium (137-145) mmol/L Potassium (3.5-5.1) mmol/L Chloride (98-107) mmol/L Carbon Dioxide (22-30) mmol/L Anion Gap (5-15) MEQ/L BUN (9-20) mg/dL Creatinine (0.66-1.25) mg/dL Estimated GFR ML/MIN Glucose (74-106) mg/dL Calcium (8.4-10.2) mg/dL Total Bilirubin (0.2-1.3) mg/dL AST (17-59) U/L ALT (0-50) U/L Alkaline Phosphatase (38-126) U/L Troponin I 0.035 H 0.032 (0.000-0.034) ng/mL NT-Pro-B Natriuret Pep (0-1800) pg/mL Serum Total Protein (6.3-8.2) g/dL Albumin (3.5-5.0) g/dL Influenza Type A Ag NEGATIVE (NEGATIVE) Influenza Type B Ag NEGATIVE (NEGATIVE) RSV (PCR) NEGATIVE (Negative) SARS-CoV-2 (PCR) NEGATIVE (NEGATIVE) 11/30/21 11/30/21 Range/Units 02:04 02:04 WBC 7.7 (4.0-10.5) x10^3/uL RBC 4.30 (4.1-5.6) x10^6/uL Hgb 12.1 L (12.5-18.0) g/dL Hct 38.2 L (42-50) % MCV 88.8 (78-100) fL MCH 28.1 (26-32) pg MCHC 31.7 L (32-36) g/dL RDW 13.9 (11.5-14.0) % Plt Count 234 (150-450) x10^3/uL MPV 9.9 (7.5-11.0) fL Gran % (36.0-66.0) % Immature Gran % (Auto) (0.00-0.4) % Nucleat RBC Rel Count (0.00-0.1) % Eos # (Auto) (0-0.5) x10^3/uL Immature Gran # (Auto) (0.00-0.03) x10^3u/L Absolute Lymphs (auto) (1.0-4.6) x10^3/uL Absolute Monos (auto) (0.0-1.3) x10^3/uL Absolute Nucleated RBC (0.00-0.01) x10^3u/L Lymphocytes % (24.0-44.0) % Monocytes % (0.0-12.0) % Eosinophils % (0.00-5.0) % Basophils % (0.0-0.4) % Absolute Granulocytes (1.4-6.9) x10^3/uL Basophils # (0-0.4) x10^3/uL Sodium (137-145) mmol/L Potassium (3.5-5.1) mmol/L Chloride (98-107) mmol/L Carbon Dioxide (22-30) mmol/L Anion Gap (5-15) MEQ/L BUN (9-20) mg/dL Creatinine (0.66-1.25) mg/dL Estimated GFR ML/MIN Glucose (74-106) mg/dL Calcium (8.4-10.2) mg/dL Total Bilirubin (0.2-1.3) mg/dL AST (17-59) U/L ALT (0-50) U/L Alkaline Phosphatase (38-126) U/L Troponin I (0.000-0.034) ng/mL NT-Pro-B Natriuret Pep 9110 H (0-1800) pg/mL Serum Total Protein (6.3-8.2) g/dL Albumin (3.5-5.0) g/dL Influenza Type A Ag (NEGATIVE) Influenza Type B Ag (NEGATIVE) RSV (PCR) (Negative) SARS-CoV-2 (PCR) (NEGATIVE) - Radiology Impressions Radiology Exams & Impressions: Radiology Procedures Category Date Time Status CHEST 1 VIEW (PORTABLE) Stat Exams 11/29/21 16:05 Completed CHEST WITH CONTRAST [CT] Stat Exams 11/29/21 18:10 Taken - Other Procedures and Tests Respiratory Therapy 11/29/21 22:38 Oxygen NASAL CANNULA 2 lpm 11/29/21 23:42 Respiratory Therapy Assessment DAILY 11/30/21 07:00 Respiratory MDI BID Assessment/Plan (1) CHF (congestive heart failure) Current Visit: Yes Status: Acute Assessment & Plan: continue diuresis, clinically patient is improving and he notes his swelling and dypsnea are improved. he is typically on oxygen at night only Code(s): I50.9 - HEART FAILURE, UNSPECIFIED (2) Atrial fibrillation Current Visit: Yes Status: Acute Assessment & Plan: stable currently, continue home med of coreg and start on po eliquis 2.5mg dose Code(s): I48.91 - UNSPECIFIED ATRIAL FIBRILLATION
[2021-11-30] MEDS ORDERED: HUMALOG SQ PRN (08:26)
--- NOTE | 2021-11-30 08:47 | XRAY ---
Indication: Short of breath. Multiple contiguous axial images obtained through the chest using 100 cc Isovue 370 contrast and PE protocol. Comparison: December 08, 2017 Good opacification of the pulmonary arteries to include the lobar and segmental branches. No pulmonary embolus. Heart remains borderline enlarged again with CABG. Aorta remains moderately arteriosclerotic without aneurysm/dissection. There are again multiple prominent mediastinal lymph nodes several appearing again partially calcified and grossly unchanged over the years again favored to be granulomatous in etiology. Stable tiny left hilar calcified nodes. Examination of the lung parenchyma again demonstrates moderate diffuse bilateral pleural parenchymal fibrosis/scarring, tiny peripheral left upper lobe calcified granuloma, and minimal bilateral posterior calcified pleural plaquing. No new pulmonary mass/nodule or infiltrate. Bony thorax intact again with osteopenia, mild degenerative changes throughout the spine, T10-T12 vertebral hemangiomas, and sternotomy wires. Limited upper abdomen again demonstrates 2.6 cm gallstone and a few hepatic/splenic calcified granulomas. Impression: 1. Continued negative pulmonary embolus. 2. Again borderline cardiomegaly. Negative for CHF or acute pneumonic process. 3. Again chronic findings including diffuse bilateral pleural parenchymal fibrosis/scarring, bilateral calcified pleural plaquing, chronic bony findings, cholelithiasis, and evidence for old granulomatous disease.
[2021-11-30] MEDS: ELIQUIS 2.5 MG TABLET PO SCH ×2 (09:33→21:47)
[2021-11-30] MEDS: Lasix 40 MG/4 ML IV SCH (09:33)
[2021-11-30] MEDS ORDERED: BABY ASPIRIN 81 MG CHEW PO SCH (10:00)
[2021-11-30] MEDS ORDERED: NON-FORMULARY ITEM (Pravastatin Sodium [Pravachol] 40 MG Tablet) PO SCH (10:00)
[2021-11-30] MEDS ORDERED: Advair Hfa 115/21 Common canister IH SCH (10:00)
[2021-11-30] MEDS: Spiriva 18 Mcg/Cap Inhaler IH SCH (10:00)
[2021-11-30] MEDS ORDERED: ECOTRIN 81 MG PO SCH (10:00)
[2021-11-30] MEDS ORDERED: Coreg PO SCH (10:00)
[2021-11-30] MEDS: Advair Hfa 115/21 Common canister IH SCH ×2 (10:00→19:03)
[2021-11-30] MEDS: ENTRESTO 49 MG-51 MG TABLET PO SCH ×2 (10:56→21:47)
[2021-11-30] MEDS: Flomax 0.4 MG PO SCH (10:56)
[2021-11-30] MEDS: ZOCOR 20MG PO SCH (10:57)
[2021-11-30] MEDS: COREG 12.5 MG PO SCH (10:57)
--- NOTE | 2021-11-30 14:45 | ECHO ---
Transthoracic echocardiographic examination and color Doppler was done on 11/30/2021. INDICATION: Congestive heart failure. IMPRESSION: 1) GLOBAL LEFT VENTRICULAR HYPOKINESIA. EJECTION FRACTION OF AROUND 20 TO 25%. 2) MODERATE MITRAL REGURGITATION. 3) MODERATE TRICUSPID REGURGITATION. RIGHT VENTRICULAR SYSTOLIC PRESSURE OF 39 MM OF MERCURY. 4) LEFT ATRIAL ENLARGEMENT. 5) MILDLY DILATED LEFT VENTRICLE. The left ventricle is visualized and demonstrated diffuse hypokinesia. Ejection fraction between 20 to 25%. The left ventricle is dilated. The mitral valve is seen and this opens adequately. There is a low flow characteristic with moderate mitral regurgitation. Left atrium is moderately enlarged. The aortic valve opens adequately. The right side chambers are mildly dilated. There is moderate tricuspid regurgitation. The right ventricular systolic pressure of 39 mm of [place].
[2021-11-30] MEDS: HOLD METFORMIN PRODUCTS FOR 48 HOURS MC SCH (19:15)
[2021-12-01 06:20] LABS: ALBUMIN 3.7 g/dL (3.5-5.0); ANION GAP 8.1 MEQ/L (5-15); BILIRUBIN,TOTAL 0.8 mg/dL (0.2-1.3); Calcium 8.5 mg/dL (8.4-10.2); Creatinine 1 1.48 mg/dL (0.66-1.25); EST GLOMERULAR FILTRATION RATE 48.6 ML/MIN; MAGNESIUM 2.1 mg/dL (1.6-2.3); Potassium 4.1 mmol/L (3.5-5.1)
[2021-12-01 06:23] LABS: Absolute Neutrophil Ct (ANC) 4.11 x10^3/uL (1.4-6.9); Basophil (Absolute #) 0.06 x10^3/uL (0-0.4); Eosinophil (Absolute #) 0.32 x10^3/uL (0-0.5); Hematocrit 38.9 % (42-50); Lymphocyte (Absolute #) 1.09 x10^3/uL (1.0-4.6); Lymphocytes % 17.1 % (24.0-44.0); Mean Cell Volume 90.7 fL (78-100); Mean Corpuscular Hgb Concent. 30.8 g/dL (32-36); Mean Platelet Volume 9.9 fL (7.5-11.0); Monocyte (Absolute #) 0.78 x10^3/uL (0.0-1.3); Monocytes % 12.2 % (0.0-12.0); Neutrophil % 64.6 % (36.0-66.0); Platelet Count 226 x10^3/uL (150-450); Red Blood Count 4.29 x10^6/uL (4.1-5.6); White Blood Count 6.4 x10^3/uL (4.0-10.5)
[2021-12-01] MEDS: COREG 12.5 MG PO SCH (09:17)
[2021-12-01] MEDS: Flomax 0.4 MG PO SCH (09:17)
[2021-12-01] MEDS: ENTRESTO 49 MG-51 MG TABLET PO SCH ×2 (09:17→21:16)
[2021-12-01] MEDS: ZOCOR 20MG PO SCH (09:17)
[2021-12-01] MEDS: ELIQUIS 2.5 MG TABLET PO SCH ×2 (09:17→21:16)
[2021-12-01] MEDS: Lasix 40 MG/4 ML IV SCH (09:18)
[2021-12-01] MEDS: Advair Hfa 115/21 Common canister IH SCH ×2 (11:18→18:30)
[2021-12-01] MEDS: Spiriva 18 Mcg/Cap Inhaler IH SCH (11:18)
--- NOTE | 2021-12-01 16:10 | PCM.DS ---
Discharge Summary Date of Admission: 11/29/21 22:34 Admitting Physician: CICI LAUREN Primary Care Provider: CICI LAUREN Allergies Allergies No Known Drug Allergies Allergy (Verified 11/29/21 15:55) Hospital Summary - Hospital Course Hospital Course: Pt is 81 male, saw Dr. Vasques in office and was in afib so sent to ER. No rapid vent response. Was also in CHF. Diuresed well. CXR with airspace dz; CT did not agree, no PE and no pna or CHF. Pt has been on eliquid 2.5mg. Breathing is "fine." - Vitals & Intake/Output Vital Signs: Vital Signs Temperature 97.5 F 12/01/21 12:00 Pulse Rate 81 12/01/21 12:00 Respiratory Rate 17 12/01/21 12:00 Blood Pressure 89/51 12/01/21 12:00 O2 Sat by Pulse Oximetry 95 12/01/21 12:00 Intake & Output: Intake & Output 11/29/21 11/30/21 12/01/21 12/02/21 11:59 11:59 11:59 11:59 Intake Total 500 1640 480 Output Total 450 2200 1000 Balance 50 -560 -520 Weight 92.1 kg 90.9 kg - Lab Result Diagrams: 12/01/21 05:10 12/01/21 05:10 Lab Results-Last 24 Hrs: Lab Results-Last 24 Hours 11/30/21 12/01/21 12/01/21 Range/Units 16:11 05:10 05:10 WBC 6.4 (4.0-10.5) x10^3/uL RBC 4.29 (4.1-5.6) x10^6/uL Hgb 12.0 L (12.5-18.0) g/dL Hct 38.9 L (42-50) % MCV 90.7 (78-100) fL MCH 28.0 (26-32) pg MCHC 30.8 L (32-36) g/dL RDW 14.0 (11.5-14.0) % Plt Count 226 (150-450) x10^3/uL MPV 9.9 (7.5-11.0) fL Gran % 64.6 (36.0-66.0) % Immature Gran % (Auto) 0.2 (0.00-0.4) % Nucleat RBC Rel Count 0.0 (0.00-0.1) % Eos # (Auto) 0.32 (0-0.5) x10^3/uL Immature Gran # (Auto) 0.01 (0.00-0.03) x10^3u/L Absolute Lymphs (auto) 1.09 (1.0-4.6) x10^3/uL Absolute Monos (auto) 0.78 (0.0-1.3) x10^3/uL Absolute Nucleated RBC 0.00 (0.00-0.01) x10^3u/L Lymphocytes % 17.1 L (24.0-44.0) % Monocytes % 12.2 H (0.0-12.0) % Eosinophils % 5.0 (0.00-5.0) % Basophils % 0.9 (0.0-0.4) % Absolute Granulocytes 4.11 (1.4-6.9) x10^3/uL Basophils # 0.06 (0-0.4) x10^3/uL Sodium 141 (137-145) mmol/L Potassium 4.1 (3.5-5.1) mmol/L Chloride 103 (98-107) mmol/L Carbon Dioxide 34 H (22-30) mmol/L Anion Gap 8.1 (5-15) MEQ/L BUN 23 H (9-20) mg/dL Creatinine 1.48 H (0.66-1.25) mg/dL Estimated GFR 48.6 ML/MIN Glucose 104 (74-106) mg/dL POC Glucometer 175 H (74 to 106) mg/dL Calcium 8.5 (8.4-10.2) mg/dL Magnesium 2.1 (1.6-2.3) mg/dL Total Bilirubin 0.80 (0.2-1.3) mg/dL AST 17 (17-59) U/L ALT 14 (0-50) U/L Alkaline Phosphatase 45 (38-126) U/L NT-Pro-B Natriuret Pep 6310 H (0-1800) pg/mL Serum Total Protein 7.0 (6.3-8.2) g/dL Albumin 3.7 (3.5-5.0) g/dL 10/08/22 10/08/22 10/08/22 Range/Units 08:04 12:16 15:58 WBC (4.0-10.5) x10^3/uL RBC (4.1-5.6) x10^6/uL Hgb (12.5-18.0) g/dL Hct (42-50) % MCV (78-100) fL MCH (26-32) pg MCHC (32-36) g/dL RDW (11.5-14.0) % Plt Count (150-450) x10^3/uL MPV (7.5-11.0) fL Gran % (36.0-66.0) % Immature Gran % (Auto) (0.00-0.4) % Nucleat RBC Rel Count (0.00-0.1) % Eos # (Auto) (0-0.5) x10^3/uL Immature Gran # (Auto) (0.00-0.03) x10^3u/L Absolute Lymphs (auto) (1.0-4.6) x10^3/uL Absolute Monos (auto) (0.0-1.3) x10^3/uL Absolute Nucleated RBC (0.00-0.01) x10^3u/L Lymphocytes % (24.0-44.0) % Monocytes % (0.0-12.0) % Eosinophils % (0.00-5.0) % Basophils % (0.0-0.4) % Absolute Granulocytes (1.4-6.9) x10^3/uL Basophils # (0-0.4) x10^3/uL Sodium (137-145) mmol/L Potassium (3.5-5.1) mmol/L Chloride (98-107) mmol/L Carbon Dioxide (22-30) mmol/L Anion Gap (5-15) MEQ/L BUN (9-20) mg/dL Creatinine (0.66-1.25) mg/dL Estimated GFR ML/MIN Glucose (74-106) mg/dL POC Glucometer 108 H 129 H 161 H (74 to 106) mg/dL Calcium (8.4-10.2) mg/dL Magnesium (1.6-2.3) mg/dL Total Bilirubin (0.2-1.3) mg/dL AST (17-59) U/L ALT (0-50) U/L Alkaline Phosphatase (38-126) U/L NT-Pro-B Natriuret Pep (0-1800) pg/mL Serum Total Protein (6.3-8.2) g/dL Albumin (3.5-5.0) g/dL Micro Results-Entire Visit: Microbiology 11/29/21 19:38 Blood Culture - Preliminary Blood NO GROWTH TO DATE 11/29/21 16:25 Blood Culture - Preliminary Blood NO GROWTH TO DATE - Radiology Exams Ordered Rad Exams-Entire Visit: Radiology Procedures Category Date Time Status CHEST 1 VIEW (PORTABLE) Stat Exams 11/29/21 16:05 Completed CHEST WITH CONTRAST [CT] Stat Exams 11/29/21 18:10 Completed ECHO W/2D AND DOPPLER [US] Routine Exams 11/30/21 09:02 Draft - Procedures and Test Procedures and Tests throughout Hospitalization: Therapy Orders & Screens 11/29/21 22:38 Oxygen NASAL CANNULA 2 lpm Comment: Diagnosis: CHF 11/29/21 23:42 Respiratory Therapy Assessment DAILY Comment: Diagnosis: CHF, Atrial Fibrillation WITHOUT Rapid response 11/29/21 23:48 RT Screen per Nursing Assess ONCE Comment: Protocol Order Physician Instructions: Greater than 3 points order RT Admission Screen Reason For Exam: Triggered on Admission Diagnosis: CHF, Atrial Fibrillation WITHOUT Rapid response Diagnosis: CHF, Atrial Fibrillation WITHOUT Rapid response Pneumonia: No Home O2: Yes: 3L HS Asthma: No CHF: Yes Home CPAP/BIPAP: No Home Nebs/MDI: No Total Points: 8 Smoking Cessation Education ONCE Comment: Diagnosis: CHF, Atrial Fibrillation WITHOUT Rapid response Smoking Status: Smoker, status unknown Do you dip or chew tobacco: No If,Former Smoker,when did you quit: 199111/30/21 07:00 Respiratory MDI BID Comment: Diagnosis: CHF, Atrial Fibrillation WITHOUT Rapid response Final Diagnosis/Problem List - Final Discharge Diagnosis/Problem (1) Atrial fibrillation Current Visit: Yes Status: Acute Assessment & Plan: rate appears controlled. f/u with Dr. Vasques in 1-2 weeks. Home on coreg and Eliquis 2.5mg po BID. Code(s): I48.91 - UNSPECIFIED ATRIAL FIBRILLATION (2) CHF (congestive heart failure) Current Visit: Yes Status: Chronic Assessment & Plan: echo pendinghome on lasix. Not on any O2 currently. Code(s): I50.9 - HEART FAILURE, UNSPECIFIED (3) SOB (shortness of breath) Current Visit: Yes Status: Acute Code(s): R06.02 - SHORTNESS OF BREATH (4) Acute renal insufficiency Current Visit: Yes Status: Acute Assessment & Plan: eGFR yesterday >60, and today 48.6, likely due to diuresis. Code(s): N28.9 - DISORDER OF KIDNEY AND URETER, UNSPECIFIED (5) General weakness Current Visit: Yes Status: Acute Assessment & Plan: If he can get up and about, may be able to discharge to home today or tomorrow. Code(s): R53.1 - WEAKNESS - Discharge Disposition: Home, Self-Care Condition: Stable Prescriptions: No Action Tiotropium [place] [Spiriva] 1 neb PO UD Multivitamin/Iron/Folic Acid [Centrum Adults Tablet] 1 each PO DAILY Aspirin 81 gm Chew [Baby Aspirin 81 mg Chew] 81 mg PO DAILY Furosemide 20 mg PO DAILY carvediloL [Carvedilol] 12.5 mg PO DAILY Fluticasone/Salmeterol 115/21 [Advair Hfa 115/21 Common canister*] 2 puffs PO DAILY glipiZIDE [Glipizide] 2.5 mg PO BID Pravastatin Sodium [Pravachol] 40 mg PO DAILY Metformin HCl 500 mg [Glucophage 500 MG] 500 mg PO DAILY [place]-3 Fatty Acids/Fish Oil [Fish Oil 1,000 mg Capsule] 1 each PO DAILY Tamsulosin HCl 0.4 mg [Flomax 0.4 MG] 0.4 mg PO DAILY Sacubitril/Valsartan [Entresto 49 mg-51 mg Tablet] 1 tab PO BID Follow up with: CICI LAUREN [Primary Care Provider] - HAJA BELTRAN [Family Provider] -
[2021-12-02 05:23] LABS: Absolute Neutrophil Ct (ANC) 4.11 x10^3/uL (1.4-6.9); Basophil (Absolute #) 0.05 x10^3/uL (0-0.4); Eosinophil % 5.2 % (0.00-5.0); Eosinophil (Absolute #) 0.34 x10^3/uL (0-0.5); Hemoglobin 11.8 g/dL (12.5-18.0); Lymphocyte (Absolute #) 1.24 x10^3/uL (1.0-4.6); Lymphocytes % 19.1 % (24.0-44.0); Mean Cell Volume 91.3 fL (78-100); Mean Corpuscular Hemoglobin 27.6 pg (26-32); Mean Corpuscular Hgb Concent. 30.3 g/dL (32-36); Monocyte (Absolute #) 0.73 x10^3/uL (0.0-1.3); Monocytes % 11.2 % (0.0-12.0); Neutrophil % 63.4 % (36.0-66.0); Platelet Count 224 x10^3/uL (150-450); Red Blood Count 4.27 x10^6/uL (4.1-5.6); Red Cell Distribution Width 14.1 % (11.5-14.0); White Blood Count 6.5 x10^3/uL (4.0-10.5)
[2021-12-02 06:26] LABS: ANION GAP 8.1 MEQ/L (5-15); Calcium 8.6 mg/dL (8.4-10.2); Creatinine 1 1.52 mg/dL (0.66-1.25); EST GLOMERULAR FILTRATION RATE 47.1 ML/MIN; Potassium 4.5 mmol/L (3.5-5.1)
[2021-12-02] MEDS: Advair Hfa 115/21 Common canister IH SCH ×2 (08:45→18:53)
[2021-12-02] MEDS: Spiriva 18 Mcg/Cap Inhaler IH SCH (08:45)
[2021-12-02] MEDS: Flomax 0.4 MG PO SCH (09:29)
[2021-12-02] MEDS: ZOCOR 20MG PO SCH (09:29)
[2021-12-02] MEDS: COREG 12.5 MG PO SCH (09:30)
[2021-12-02] MEDS: ELIQUIS 2.5 MG TABLET PO SCH ×2 (09:30→21:32)
[2021-12-02] MEDS: ENTRESTO 49 MG-51 MG TABLET PO SCH ×2 (09:30→21:32)
[2021-12-02] MEDS: Lasix 20 MG/2 ML IV SCH (09:32)
[2021-12-02] MEDS ORDERED: Coreg 3.125 MG PO SCH (10:00)
[2021-12-02] MEDS: Lactated Ringers 1,000 ML IV SCH (12:02)
--- NOTE | 2021-12-02 12:48 | PCM.NOTE ---
Date and Time: 12/02/21 1244 Subjective Assessment: Yesterday when up to walk his HR was in the 140s and he would desat to the 70s but recovered quickly. Today he has no complaints. Sitting up in a chair. - Review of Systems Constitutional: No Fever Abdominal/Gastrointestinal: No Vomiting Objective Exam General Appearance: no apparent distress, alert Neurologic Exam: cooperative, normal mood/affect Skin Exam: normal color, warm, dry, No rash Eye Exam: eyes nml inspection Ears, Nose, Throat Exam: moist mucous membranes Neck Exam: normal inspection Respiratory Exam: normal breath sounds, lungs clear, No crackles/rales, No rhonchi, No wheezing Cardiovascular Exam: normal heart sounds, irregular, No murmur Gastrointestinal/Abdomen Exam: soft, normal bowel sounds Extremity Exam: normal inspection, No pedal edema, No swelling OBJECTIVE DATA Vital Signs: Vital Signs - 24 hr Temp Pulse Resp BP Pulse Ox 12/02/21 12:00 97.3 F 93 H 22 84/51 98 12/02/21 08:45 104 H 20 95 12/02/21 08:00 97.3 F 90 15 123/64 99 12/02/21 04:00 97.7 F 86 22 101/65 97 12/01/21 23:55 98.3 F 86 20 106/55 93 L 12/01/21 20:30 90 L 12/01/21 20:00 98.4 F 96 H 20 95/61 92 L 12/01/21 18:30 92 H 16 92 L 12/01/21 16:00 97.9 F 86 24 100/59 93 L Pain Assessment - Last Documented Pain Intensity 0 Intake and Output: Intake & Output 11/30/21 12/01/21 12/02/21 12/03/21 11:59 11:59 11:59 11:59 Intake Total 500 1640 1760 120 Output Total 450 2200 1500 300 Balance 50 -560 260 -180 Weight 92.1 kg 90.9 kg 91.9 kg Lab Results: Lab Results-Last 24 Hours 12/01/21 12/02/21 12/02/21 Range/Units 15:58 04:30 04:30 WBC 6.5 (4.0-10.5) x10^3/uL RBC 4.27 (4.1-5.6) x10^6/uL Hgb 11.8 L (12.5-18.0) g/dL Hct 39.0 L (42-50) % MCV 91.3 (78-100) fL MCH 27.6 (26-32) pg MCHC 30.3 L (32-36) g/dL RDW 14.1 H (11.5-14.0) % Plt Count 224 (150-450) x10^3/uL MPV 10.0 (7.5-11.0) fL Gran % 63.4 (36.0-66.0) % Immature Gran % (Auto) 0.3 (0.00-0.4) % Nucleat RBC Rel Count 0.0 (0.00-0.1) % Eos # (Auto) 0.34 (0-0.5) x10^3/uL Immature Gran # (Auto) 0.02 (0.00-0.03) x10^3u/L Absolute Lymphs (auto) 1.24 (1.0-4.6) x10^3/uL Absolute Monos (auto) 0.73 (0.0-1.3) x10^3/uL Absolute Nucleated RBC 0.00 (0.00-0.01) x10^3u/L Lymphocytes % 19.1 L (24.0-44.0) % Monocytes % 11.2 (0.0-12.0) % Eosinophils % 5.2 H (0.00-5.0) % Basophils % 0.8 (0.0-0.4) % Absolute Granulocytes 4.11 (1.4-6.9) x10^3/uL Basophils # 0.05 (0-0.4) x10^3/uL Sodium 141 (137-145) mmol/L Potassium 4.5 (3.5-5.1) mmol/L Chloride 103 (98-107) mmol/L Carbon Dioxide 34 H (22-30) mmol/L Anion Gap 8.1 (5-15) MEQ/L BUN 27 H (9-20) mg/dL Creatinine 1.52 H (0.66-1.25) mg/dL Estimated GFR 47.1 ML/MIN Glucose 104 (74-106) mg/dL POC Glucometer 161 H (74 to 106) mg/dL Lactic Acid (0.4-2.0) Calcium 8.6 (8.4-10.2) mg/dL Procalcitonin (0.030-0.080) ng/mL 12/02/21 12/02/21 12/02/21 Range/Units 04:30 07:35 10:35 WBC (4.0-10.5) x10^3/uL RBC (4.1-5.6) x10^6/uL Hgb (12.5-18.0) g/dL Hct (42-50) % MCV (78-100) fL MCH (26-32) pg MCHC (32-36) g/dL RDW (11.5-14.0) % Plt Count (150-450) x10^3/uL MPV (7.5-11.0) fL Gran % (36.0-66.0) % Immature Gran % (Auto) (0.00-0.4) % Nucleat RBC Rel Count (0.00-0.1) % Eos # (Auto) (0-0.5) x10^3/uL Immature Gran # (Auto) (0.00-0.03) x10^3u/L Absolute Lymphs (auto) (1.0-4.6) x10^3/uL Absolute Monos (auto) (0.0-1.3) x10^3/uL Absolute Nucleated RBC (0.00-0.01) x10^3u/L Lymphocytes % (24.0-44.0) % Monocytes % (0.0-12.0) % Eosinophils % (0.00-5.0) % Basophils % (0.0-0.4) % Absolute Granulocytes (1.4-6.9) x10^3/uL Basophils # (0-0.4) x10^3/uL Sodium (137-145) mmol/L Potassium (3.5-5.1) mmol/L Chloride (98-107) mmol/L Carbon Dioxide (22-30) mmol/L Anion Gap (5-15) MEQ/L BUN (9-20) mg/dL Creatinine (0.66-1.25) mg/dL Estimated GFR ML/MIN Glucose (74-106) mg/dL POC Glucometer 102 (74 to 106) mg/dL Lactic Acid 1.5 (0.4-2.0) Calcium (8.4-10.2) mg/dL Procalcitonin 0.058 (0.030-0.080) ng/mL Multi-Disciplinary Progress Notes: Multi-Disciplinary Progress Notes 12/02/21 09:07 Respiratory Note by Marta Mix Resting room air sat 95%. Walking room air sat 87%. Placed on 2L NC Sats 89%. Increased to 3L NC sats 93%. Initialized on 12/02/21 09:07 - END OF NOTE Assessment/Plan (1) Atrial fibrillation Current Visit: Yes Status: Acute Qualifiers: Atrial fibrillation type: persistent (not longstanding) Qualified Code(s): I48.19 - Other persistent atrial fibrillation; I48.1 - Persistent atrial fibrillation Assessment & Plan: Is on coreg 12.5mg po daily. Would like to change to 6.25 po BID, however the 12.5 was already given today. Discussed with pharmacy; BP a bit better now - will add cardizem 30mg po QID. Code(s): I48.91 - UNSPECIFIED ATRIAL FIBRILLATION (2) CHF (congestive heart failure) Current Visit: Yes Status: Chronic Assessment & Plan: On entresto. Decreased lasix, as he seems to have over-diuresed a bit (decreased renal function). Code(s): I50.9 - HEART FAILURE, UNSPECIFIED (3) SOB (shortness of breath) Current Visit: Yes Status: Resolved Assessment & Plan: just recurs with activity. Code(s): R06.02 - SHORTNESS OF BREATH (4) Acute renal insufficiency Current Visit: Yes Status: Acute Assessment & Plan: added some IV fluids today. Code(s): N28.9 - DISORDER OF KIDNEY AND URETER, UNSPECIFIED (5) General weakness Current Visit: Yes Status: Acute Code(s): R53.1 - WEAKNESS
[2021-12-02] MEDS: Cardizem 30 MG PO SCH ×3 (13:09→21:32)
[2021-12-03] MEDS: Lactated Ringers 1,000 ML IV SCH ×3 (01:30→16:24)
[2021-12-03 05:00] LABS: Absolute Neutrophil Ct (ANC) 4.21 x10^3/uL (1.4-6.9); Basophil (Absolute #) 0.03 x10^3/uL (0-0.4); Eosinophil % 4.9 % (0.00-5.0); Eosinophil (Absolute #) 0.31 x10^3/uL (0-0.5); Hematocrit 36.7 % (42-50); Hemoglobin 11.4 g/dL (12.5-18.0); Lymphocyte (Absolute #) 1.08 x10^3/uL (1.0-4.6); Lymphocytes % 17.1 % (24.0-44.0); Mean Cell Volume 90.8 fL (78-100); Mean Corpuscular Hemoglobin 28.2 pg (26-32); Mean Corpuscular Hgb Concent. 31.1 g/dL (32-36); Mean Platelet Volume 10.2 fL (7.5-11.0); Monocyte (Absolute #) 0.66 x10^3/uL (0.0-1.3); Monocytes % 10.5 % (0.0-12.0); Neutrophil % 66.8 % (36.0-66.0); Platelet Count 215 x10^3/uL (150-450); Red Blood Count 4.04 x10^6/uL (4.1-5.6); Red Cell Distribution Width 14.1 % (11.5-14.0); White Blood Count 6.3 x10^3/uL (4.0-10.5)
[2021-12-03 05:26] LABS: ANION GAP 9.1 MEQ/L (5-15); Calcium 8.2 mg/dL (8.4-10.2); Creatinine 1 1.35 mg/dL (0.66-1.25); Potassium 3.9 mmol/L (3.5-5.1)
[2021-12-03] MEDS: Advair Hfa 115/21 Common canister IH SCH ×2 (07:55→18:21)
[2021-12-03] MEDS: Spiriva 18 Mcg/Cap Inhaler IH SCH (07:59)
[2021-12-03] MEDS: Cardizem 30 MG PO SCH ×4 (09:05→21:52)
[2021-12-03] MEDS: Coreg 3.125 MG PO SCH ×2 (09:05→21:53)
[2021-12-03] MEDS: Flomax 0.4 MG PO SCH (09:06)
[2021-12-03] MEDS: Lasix 20 MG/2 ML IV SCH (09:06)
[2021-12-03] MEDS: ELIQUIS 2.5 MG TABLET PO SCH ×2 (09:06→21:41)
[2021-12-03] MEDS: ENTRESTO 49 MG-51 MG TABLET PO SCH ×2 (09:06→21:41)
--- NOTE | 2021-12-03 12:54 | PCM.NOTE ---
Date and Time: 12/03/21 1249 Subjective Assessment: Patient is resting comfortably in bed this morning ,ate breakfast . Had a 4 beat run of Vtach rate 120 while patient was up to urinate. Patient states he has not had any symptoms of dizziness or palpitations or weakness this morning. OBJECTIVE DATA Vital Signs: Vital Signs - 24 hr Temp Pulse Resp BP Pulse Ox 12/03/21 11:57 98.4 F 99 H 16 102/62 98 12/03/21 08:01 99 H 18 95 12/03/21 07:39 97.8 F 88 16 142/58 100 12/03/21 04:00 97.7 F 87 19 100/57 98 12/03/21 00:00 98.0 F 50 L 20 107/59 98 12/02/21 20:00 98.0 F 75 18 91/52 98 12/02/21 18:53 87 18 98 12/02/21 16:00 97.7 F 80 15 95/57 100 Pain Assessment - Last Documented Pain Intensity 0 Intake and Output: Intake & Output 12/01/21 12/02/21 12/03/21 12/04/21 11:59 11:59 11:59 11:59 Intake Total 1640 1760 2758 Output Total 2200 1500 800 Balance -079 837 0266 Weight 90.9 kg 91.9 kg Lab Results: Lab Results-Last 24 Hours 12/03/21 12/03/21 12/03/21 Range/Units 04:20 04:20 08:08 WBC 6.3 (4.0-10.5) x10^3/uL RBC 4.04 L (4.1-5.6) x10^6/uL Hgb 11.4 L (12.5-18.0) g/dL Hct 36.7 L (42-50) % MCV 90.8 (78-100) fL MCH 28.2 (26-32) pg MCHC 31.1 L (32-36) g/dL RDW 14.1 H (11.5-14.0) % Plt Count 215 (150-450) x10^3/uL MPV 10.2 (7.5-11.0) fL Gran % 66.8 H (36.0-66.0) % Immature Gran % (Auto) 0.2 (0.00-0.4) % Nucleat RBC Rel Count 0.0 (0.00-0.1) % Eos # (Auto) 0.31 (0-0.5) x10^3/uL Immature Gran # (Auto) 0.01 (0.00-0.03) x10^3u/L Absolute Lymphs (auto) 1.08 (1.0-4.6) x10^3/uL Absolute Monos (auto) 0.66 (0.0-1.3) x10^3/uL Absolute Nucleated RBC 0.00 (0.00-0.01) x10^3u/L Lymphocytes % 17.1 L (24.0-44.0) % Monocytes % 10.5 (0.0-12.0) % Eosinophils % 4.9 (0.00-5.0) % Basophils % 0.5 (0.0-0.4) % Absolute Granulocytes 4.21 (1.4-6.9) x10^3/uL Basophils # 0.03 (0-0.4) x10^3/uL Sodium 138 (137-145) mmol/L Potassium 3.9 (3.5-5.1) mmol/L Chloride 102 (98-107) mmol/L Carbon Dioxide 31 H (22-30) mmol/L Anion Gap 9.1 (5-15) MEQ/L BUN 27 H (9-20) mg/dL Creatinine 1.35 H (0.66-1.25) mg/dL Estimated GFR 54.0 ML/MIN Glucose 114 H (74-106) mg/dL POC Glucometer 107 H (74 to 106) mg/dL Calcium 8.2 L (8.4-10.2) mg/dL NT-Pro-B Natriuret Pep 3680 H (0-1800) pg/mL Multi-Disciplinary Progress Notes: Multi-Disciplinary Progress Notes 12/03/21 09:19 Case Management Note by Janey Villa PATIENT AND STATE THAT PATIENT HAS HAD HIS [facility] FOR "YEARS" AND HE IS NO LONGER BEING BILLED FOR OXYGEN THRU [facility]. THEY WERE UNSATISFIED WITH [facility]'S CUSTOMER SERVICE AND DO NOT WISH TO HAVE THE 24/7 OXYGEN SET UP THRU [facility]. THEY ARE REQUESTING ORD[facility] BE SENT TO [facility]. ALSO S/W PATIENT REGARDING ANY OTHER NEEDS AT TIME OF DC. HE DENIES ANY OTHER NEEDS. HE PLANS TO RETURN HOME WITH HIS AT TIME OF DC. Initialized on 12/03/21 09:19 - END OF NOTE
[2021-12-04] MEDS: Spiriva 18 Mcg/Cap Inhaler IH SCH (06:48)
[2021-12-04] MEDS: Advair Hfa 115/21 Common canister IH SCH (06:48)
[2021-12-04 06:54] VITALS: BP 124/64; PULSE 89; O2SAT 98
[2021-12-04 07:34] LABS: Hematocrit 37.1 % (42-50); Hemoglobin 11.3 g/dL (12.5-18.0); Mean Cell Volume 91.4 fL (78-100); Mean Corpuscular Hemoglobin 27.8 pg (26-32); Mean Corpuscular Hgb Concent. 30.5 g/dL (32-36); Platelet Count 204 x10^3/uL (150-450); Red Blood Count 4.06 x10^6/uL (4.1-5.6); White Blood Count 8.3 x10^3/uL (4.0-10.5)
[2021-12-04] MEDS ORDERED: JARDIANCE PO SCH (08:00)
[2021-12-04 08:09] LABS: ANION GAP 9.6 MEQ/L (5-15); Calcium 8.3 mg/dL (8.4-10.2); Creatinine 1 1.31 mg/dL (0.66-1.25); Potassium 4.2 mmol/L (3.5-5.1)
--- NOTE | 2021-12-04 09:35 | CONS ---
CONSULT DATE: 12/03/2021 BRIEF HISTORY: This is an 81 y/o male with known history of coronary artery disease post coronary bypass surgery about 11 years ago and percutaneous coronary intervention who was admitted on 11/29/2021 presenting with shortness of breath. He was in congestive heart failure and did well with IV diuretics. He initially was found to be in atrial fibrillation, but heart rate is well controlled. He was placed on Eliquis. He was placed on telemetry and on 12/02/2021, he had a short run of wide QRS tachycardia that lasted for about 5 beats and patient was asymptomatic. Clinically, patient states that he is feeling a lot better. He denies any chest pains. His initial NT Pro BNP was elevated. Patient is known to have coronary artery disease who has had coronary bypass surgery about 11 year ago. Subsequently, had a coronary intervention. He has done reasonably well. He has significant LV systolic dysfunction. CARDIOVASCULAR RISK FACTORS: Positive for diabetes, positive for hypertension, has hyperlipidemia. CURRENT MEDICATIONS: Aspirin 81 mg q d, carvedilol 6.25 bid, furosemide 20 mg IV, glipizide 2.5 mg bid, metformin 500 mg q d, multivitamin 1 tablet daily, [place]-3 fatty acid 1000 mg q d, pravastatin 40 mg q d, Entresto 49/51 bid, Flomax 0.4 mg q d, Spiriva 1 tablet PO daily. 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 RESPIRATORY: No chronic cough. No hemoptysis. GI: No history of nausea or vomiting. : Negative for dysuria. No hematuria. No flank pains. PERIPHERAL VASCULAR: No deep venous thrombosis. HEMATOLOGY: No history of blood dyscrasia. PHYSICAL EXAMINATION: The BP is 120/70, heart rate is about 80, respirations about 16. GENERAL: The patient is an elderly male who is alert and oriented who is not in any form of distress. Chest pain free. HEENT: Slightly pale conjunctivae. NECK: No obvious JVD. CHEST: The breath sounds are clear bilateral. CARDIAC: Heart tones are variable. They rhythm is atrial fibrillation. There is a soft atypical systolic murmur. ABDOMEN: Soft with normal bowel sounds. EXTREMITIES: There is trace edema with decreased distal pulses. The echocardiogram done on 11/30/2021 shows a left ventricular ejection fraction of 20-25% with associated moderate mitral regurgitation. The EKG done on 11/29/2021 shows atrial fibrillation with left anterior gail-block. Telemetry done on 12/03/2021 shows atrial fibrillation with a 5 beat run of ventricular tachycardia. The tracing on 12/02/2021 appears to be more artifactual. CONCLUSION: 1. In essence, the patient is known to have coronary artery disease post coronary bypass surgery with ischemic cardiomyopathy. He is currently in atrial fibrillation with a controlled heart rate and nonsustained ventricular tachycardia. Will continue with Entresto and beta-blockers. Will start patient on Farxiga. Patient has been offered ICD prophylaxis and DIANE monitoring, but he has refused and in fact, at this time, he has requested a no code status. 2. Hypertension. 3. Hypertension with renal disease. 4. Hyperlipidemia. Continue with statin therapy. 5. Atrial fibrillation. Goal of treatment will be heart rate control and anticoagulation.
--- NOTE | 2021-12-04 10:24 | PCM.DS ---
Discharge Summary Date of Admission: 12/01/21 16:47 Admitting Physician: CICI LAUREN Consults: Consults on Case 12/03/21 11:53 Consult Pulmonology ROUTINE 12/03/21 12:17 Consult Cardiology ROUTINE Primary Care Provider: CICI LAUREN Allergies Allergies No Known Drug Allergies Allergy (Verified 11/29/21 15:55) Hospital Summary - Hospital Course Hospital Course: Pt is an 81 yo male pt of mine with CAD (hx CABG and hx [place]), DM II, COPD, hyperlipidemia, HFrEF, hx rectal ca with ostomy who was admitted through ER with afib (no RVR). He had been seen at Dr. Vasques's office and was sent over to ER for admission. He has been on carvedilol 12.5mg po daily. We added cardizem 30mg po QID. His heart has continued to be irregular but HR around 90-100, increases with activity. Initially he had quite an increase in HR when up and had to rest frequently. Now he has been out of bed by himself and doing his own ADLs. Dr. Vasques saw him yesterday, thank you, and will f/u with him outpatient. He had some low bp here - pt states he always has low bp. Fluids increased; was having some acute renal insufficiency. That's improved today (eGFR up to 56). Carvedilol was held last night d/t BP - will give instructions for holding it at home. - Vitals & Intake/Output Vital Signs: Vital Signs Temperature 97.3 F 12/04/21 06:53 Pulse Rate 89 12/04/21 06:53 Respiratory Rate 16 12/04/21 06:53 Blood Pressure 124/64 12/04/21 06:53 O2 Sat by Pulse Oximetry 98 12/04/21 06:53 Intake & Output: Intake & Output 12/01/21 12/02/21 12/03/21 12/04/21 11:59 11:59 11:59 11:59 Intake Total 1640 1760 2758 3255 Output Total 2200 1500 800 Balance -151 898 9211 3255 Weight 90.9 kg 91.9 kg - Lab Result Diagrams: 12/04/21 07:20 12/04/21 07:20 Lab Results-Last 24 Hrs: Lab Results-Last 24 Hours 12/04/21 12/04/21 12/04/21 Range/Units 07:20 07:20 07:23 WBC 8.3 (4.0-10.5) x10^3/uL RBC 4.06 L (4.1-5.6) x10^6/uL Hgb 11.3 L (12.5-18.0) g/dL Hct 37.1 L (42-50) % MCV 91.4 (78-100) fL MCH 27.8 (26-32) pg MCHC 30.5 L (32-36) g/dL RDW 14.0 (11.5-14.0) % Plt Count 204 (150-450) x10^3/uL MPV 10.0 (7.5-11.0) fL Sodium 138 (137-145) mmol/L Potassium 4.2 (3.5-5.1) mmol/L Chloride 103 (98-107) mmol/L Carbon Dioxide 30 (22-30) mmol/L Anion Gap 9.6 (5-15) MEQ/L BUN 24 H (9-20) mg/dL Creatinine 1.31 H (0.66-1.25) mg/dL Estimated GFR 56.0 ML/MIN Glucose 118 H (74-106) mg/dL POC Glucometer 108 H (74 to 106) mg/dL Calcium 8.3 L (8.4-10.2) mg/dL Micro Results-Entire Visit: Microbiology 11/29/21 16:25 Blood Culture Gram Stain - Final Blood Not Reportable Blood Culture - Final NO GROWTH 11/29/21 19:38 Blood Culture Gram Stain - Final Blood Not Reportable Blood Culture - Final NO GROWTH Accuchecks Date 12/04/21 Time 07:28 - Procedures and Test Procedures and Tests throughout Hospitalization: Therapy Orders & Screens 11/29/21 22:38 Oxygen NASAL CANNULA 2 lpm Comment: Diagnosis: CHF 11/29/21 23:42 Respiratory Therapy Assessment DAILY Comment: Diagnosis: CHF, Atrial Fibrillation WITHOUT Rapid response 11/29/21 23:48 RT Screen per Nursing Assess ONCE Comment: Protocol Order Physician Instructions: Greater than 3 points order RT Admission Screen Reason For Exam: Triggered on Admission Diagnosis: CHF, Atrial Fibrillation WITHOUT Rapid response Diagnosis: CHF, Atrial Fibrillation WITHOUT Rapid response Pneumonia: No Home O2: Yes: 3L HS Asthma: No CHF: Yes Home CPAP/BIPAP: No Home Nebs/MDI: No Total Points: 8 Smoking Cessation Education ONCE Comment: Diagnosis: CHF, Atrial Fibrillation WITHOUT Rapid response Smoking Status: Smoker, status unknown Do you dip or chew tobacco: No If,Former Smoker,when did you quit: 199111/30/21 07:00 Respiratory MDI BID Comment: Diagnosis: CHF, Atrial Fibrillation WITHOUT Rapid response 12/02/21 08:00 Qualify for Home Oxygen ROUTINE Comment: patient desats with ambulation Diagnosis: CHF, Atrial Fibrillation WITHOUT Rapid response Discharge Exam General Appearance: no apparent distress, alert Neurologic Exam: oriented x 3, cooperative Eye Exam: eyes nml inspection Ears, Nose, Throat Exam: moist mucous membranes Neck Exam: normal inspection Respiratory Exam: normal breath sounds, lungs clear, No crackles/rales, No rhonchi, No wheezing Cardiovascular Exam: regular rate/rhythm, normal heart sounds, No murmur Gastrointestinal/Abdomen Exam: soft, normal bowel sounds, other (ostomy present LLQ), No tenderness, No distention, No mass, No guarding, No rebound Back Exam: normal inspection, No rash Extremity Exam: normal inspection Skin Exam: normal color, warm, dry, No rash Final Diagnosis/Problem List - Final Discharge Diagnosis/Problem (1) Atrial fibrillation Current Visit: Yes Status: Acute Assessment & Plan: Home on Eliquis, f/u with Dr. Vasques. Home on cardizem as well for rate control (as tolerated by BP). Code(s): I48.91 - UNSPECIFIED ATRIAL FIBRILLATION (2) CHF (congestive heart failure) Current Visit: Yes Status: Chronic Code(s): I50.9 - HEART FAILURE, UNSPECIFIED (3) SOB (shortness of breath) Current Visit: Yes Status: Resolved Code(s): R06.02 - SHORTNESS OF BREATH (4) Acute renal insufficiency Current Visit: Yes Status: Resolved Code(s): N28.9 - DISORDER OF KIDNEY AND URETER, UNSPECIFIED (5) General weakness Current Visit: Yes Status: Resolved Code(s): R53.1 - WEAKNESS (6) Diabetes mellitus Current Visit: Yes Status: Chronic Code(s): E11.9 - TYPE 2 DIABETES MELLITUS WITHOUT COMPLICATIONS (7) CAD (coronary artery disease) Current Visit: Yes Status: Chronic Code(s): I25.10 - ATHSCL HEART DISEASE OF [place] CORONARY ARTERY W/O ANG PCTRS - Discharge Disposition: Home, Self-Care Condition: Stable Prescriptions: New Diltiazem HCl 30 mg [Cardizem 30 MG] 30 mg PO QID #120 tablet Carvedilol 3.125 mg [Coreg 3.125 MG] 6.25 mg PO BID #60 tablet Apixaban [Eliquis 2.5 mg Tablet] 2.5 mg PO BID #60 tablet Empagliflozin [Jardiance] 10 mg PO DAILY@0800 #30 tablet Continue Tiotropium [place] [Spiriva Handihaler] 1 neb PO UD Multivitamin/Iron/Folic Acid [Centrum Adults Tablet] 1 each PO DAILY Aspirin 81 gm Chew [Baby Aspirin 81 mg Chew] 81 mg PO DAILY Furosemide 20 mg PO DAILY Fluticasone/Salmeterol 115/21 [Advair Hfa 115/21 Common canister*] 2 puffs PO DAILY glipiZIDE [Glipizide] 2.5 mg PO BID Pravastatin Sodium [Pravachol] 40 mg PO DAILY Metformin HCl 500 mg [Glucophage 500 MG] 500 mg PO DAILY [place]-3 Fatty Acids/Fish Oil [Fish Oil 1,000 mg Capsule] 1 each PO DAILY Tamsulosin HCl 0.4 mg [Flomax 0.4 MG] 0.4 mg PO DAILY Sacubitril/Valsartan [Entresto 49 mg-51 mg Tablet] 1 tab PO BID Discontinued carvediloL [Carvedilol] 12.5 mg PO DAILY Follow up with: HAJA BELTRAN [CONSULTING PHYSICIAN] - CICI LAUREN [Primary Care Provider] -
[2021-12-04] MEDS: Flomax 0.4 MG PO SCH (10:35)
[2021-12-04] MEDS: ENTRESTO 49 MG-51 MG TABLET PO SCH (10:35)
[2021-12-04] MEDS: Lasix 20 MG/2 ML IV SCH (10:35)
[2021-12-04] MEDS: Coreg 3.125 MG PO SCH (10:35)
[2021-12-04] MEDS: ELIQUIS 2.5 MG TABLET PO SCH (10:35)
[2021-12-04] MEDS: Cardizem 30 MG PO SCH (10:35)
== END 2021-12-04 12:50 | disposition home or self-care (01) | DRG 310 ==
LOC: ED 15:20 → MED SURG 22:34 → OBSVTOIN 12-01 16:47
PROVIDERS: ADMIT Family Medicine; ATTEND Family Medicine
DX: I48.91 Unspecified atrial fibrillation (principal); I11.0 Hypertensive heart disease with heart failure; I50.9 Heart failure, unspecified; R06.02 Shortness of breath; N28.9 Disorder of kidney and ureter, unspecified; R53.1 Weakness; E11.9 Type 2 diabetes mellitus without complications; E78.5 Hyperlipidemia, unspecified; I25.10 Atherosclerotic heart disease of native coronary artery without angina pectoris; R09.02 Hypoxemia; Z85.048 Personal history of other malignant neoplasm of rectum, rectosigmoid junction, and anus; Z79.899 Other long term (current) drug therapy; Z79.01 Long term (current) use of anticoagulants; Z20.828 Contact with and (suspected) exposure to other viral communicable diseases
CPT/HCPCS: 0241U; 36415; 71045; 71260; 80048; 80053; 82947; 83605; 83735; 83880; 84145; 84443; 84484; 85025; 85027; 87040; 93005; 93041; 93268; 93306; 94640; 94760; 96372; 96374; 99285; G0378; J1644; J1650; J1940; A9270-GY

== ENCOUNTER 2022-03-04 12:41 | Inpatient (IN) | payer MEDICARE, OTHER ==
--- NOTE | 2022-03-04 13:00 | ERPHSYRPT ---
- History of Present Illness Time Seen by Provider: 03/04/22 12:58 Source: patient Exam Limitations: no limitations Physician History: Patient is a 81-year-old male to our ED for evaluation of shortness of breath, generalized weakness and weight gain. Patient has a history of diabetes type 2, COPD, patient requires 2 L nasal cannula 24 hours/day. Patient has a history of coronary artery disease, hyperlipidemia, congestive heart failure. Patient has had an MA in the past. Patient has had CABG and a stent. Patient's shortness of breath has been progressive over the past 4 to 5 days. Shortness of breath worse when he lays flat. Patient has been monitoring his body weight daily. Patient states he has been gaining approximately 1 pound per day over the past 4 days. Patient's legs are significantly more swollen than normal. Patient concerned he is in CHF. Patient denies pain. Symptoms are mild to moderate in intensity. Activity worsens shortness of breath. Patient notified his primary care provider who advised him to come to our ED for evaluation. Patient's game programer is Dr. Nance. Symptoms improved at rest. Patient voices no other complaints or concerns at this time. Atrial fibrillation with a rate of 86 observed on EKG. Patient on Eliquis Portions of this note were created with voice recognition technology. There may be grammatical, spelling, punctuation or sound alike errors Timing/Duration: day(s) (4 days) Activities at Onset: none Severity of Dyspnea-Max: moderate Severity of Dyspnea-Current: moderate Possible Cause: occasional episodes Modifying Factors: Improves With: activity, lying down Associated Symptoms: ankle swelling, No chest pain/discomfort, No fever, No lightheadedness, No hemoptysis, No heart racing, No painful breathing, No tingli ng face Allergies/Adverse Reactions: No Known Drug Allergies Allergy (Verified 03/04/22 12:43) Home Medications: Fluticasone/Salmeterol 115/21 [Advair Hfa 115/21 Common canister*] 2 puffs PO DAILY 12/08/17 [History] Furosemide 20 mg PO DAILY 12/08/17 [History] Metformin HCl 500 mg [Glucophage 500 MG] 500 mg PO DAILY 12/08/17 [History ] Pravastatin Sodium [Pravachol] 40 mg PO DAILY 12/08/17 [History] glipiZIDE [Glipizide] 2.5 mg PO BID 12/08/17 [History] Sacubitril/Valsartan [Entresto 49 mg-51 mg Tablet] 1 tab PO BID 11/29/21 [Hist ory] Tamsulosin HCl 0.4 mg [Flomax 0.4 MG] 0.4 mg PO DAILY 11/29/21 [History] Carvedilol 3.125 mg [Coreg 3.125 MG] 2 tab PO BID 03/04/22 [History] Diltiazem HCl [Diltiazem 24Hr ER] 1 cap PO DAILY 03/04/22 [History] Tiotropium [place] [Spiriva Handihaler] 18 mcg PO DAILY 03/04/22 [History] Hx Tetanus, Diphtheria Vaccination/Date Given: No Hx Influenza Vaccination/Date Given: No Hx Pneumococcal Vaccination/Date Given: Yes Travel Risk - Vaccine Status Have you recieved a Covid-19 vaccination: Yes Product Support Representative: Moderna - Vaccination Dates Date of 2cond Vaccination (if applicable): 2020 Comment: had 1 booster - Review of Systems Constitutional: No Symptoms, No Fever, No Chills Eyes: No Symptoms Ears, Nose, & Throat: No Symptoms Respiratory: No Symptoms, No Cough, No Dyspnea Cardiac: No Symptoms, No Chest Pain, No Edema, No Syncope Abdominal/Gastrointestinal: No Symptoms, No Abdominal Pain, No Nausea, No Vomiting, No Diarrhea Genitourinary Symptoms: No Symptoms, No Dysuria Musculoskeletal: No Symptoms, No Back Pain, No Neck Pain Skin: No Symptoms, No Rash Neurological: No Symptoms, No Dizziness, No Focal Weakness, No Sensory Changes Psychological: No Symptoms Endocrine: No Symptoms Hematologic/Lymphatic: No Symptoms Immunological/Allergic: No Symptoms All Other Systems: Reviewed and Negative - Past Medical History Pertinent Past Medical History: Yes Neurological History: No Pertinent History ENT History: No Pertinent History Cardiac History: Congestive Heart Failure, Coronary Artery Disease, Myocardial Infarction (MA) Respiratory History: No Pertinent History Endocrine Medical History: No Pertinent History Musculoskeletal History: No Pertinent History GI Medical History: No Pertinent History History: No Pertinent History Psycho-Social History: No Pertinent History Male Reproductive Disorders: No Pertinent History Other Medical History: hx of rectal cancer, - Past Surgical History Past Surgical History: Yes Cardiac: CABG, Cardiac Catheterization, Cardiac Stent Respiratory: No Pertinent History Gastrointestinal: No Pertinent History Genitourinary: No Pertinent History Musculoskeletal: No Pertinent History Male Surgical History: No Pertinent History Other Surgical History: colostomy bag - Social History Smoking Status: Smoker, status unknown Exposure to second hand smoke: No Drug Use: none Patient Lives Alone: No - Nursing Vital Signs Nursing Vital Signs: Initial Vital Signs Temperature 96.8 F 03/04/22 12:43 Pulse Rate 89 03/04/22 12:43 Respiratory Rate 30 H 03/04/22 12:43 Blood Pressure 91/60 03/04/22 12:43 O2 Sat by Pulse Oximetry 100 03/04/22 12:43 Pain Scale Pain Intensity 0 - Physical Exam General Appearance: no apparent distress, alert Eye Exam: PERRL/EOMI, eyes nml inspection Ears, Nose, Throat Exam: hearing grossly normal, normal ENT inspection, normal pharynx Neck Exam: normal inspection, supple, full range of motion Respiratory Exam: airway intact, crackles/rales, No respiratory distress Cardiovascular/Chest Exam: normal heart sounds, regular rate/rhythm Abdominal/Gastrointestinal Exam: soft, normal bowel sounds, No tenderness, No distention, No mass Extremity Exam: non-tender, normal range of motion, normal inspection, no calf tenderness, no pedal edema, swelling (2+ lower extremity pitting edema), No amber's sign Peripheral Pulses Exam: dorsalis-pedis (R): 2+, dorsalis-pedis (L): 2+ Neurologic Exam: alert, oriented x 3, cooperative, folder seamer automatic II-XII nml as tested, sensation nml, No motor deficits Skin Exam: normal color, warm, No dry SpO2 Interpretation: normal SpO2: 98 O2 Delivery: Nasal Cannula (Patient uses 2 L oxygen nasal cannula 24 hours/day due to history of COPD.) - Course Nursing assessment & vital signs reviewed: Yes EKG Interpreted by Me: RATE (86), A-fib, NORMAL AXIS, NORMAL INTERVALS Ordered Tests: Active Orders 24 hr Category Date Time Status Oracle Ebs Architect STAT Care 03/04/22 12:57 Active EKG-ER Only STAT Care 03/04/22 12:56 Active IV Insertion STAT Care 03/04/22 12:56 Active Oxygen-ED Only Nasal Cannula 2 lpm Care 03/04/22 14:16 Active Pulse Oximetry (ED) STAT Care 03/04/22 12:56 Active CHEST 1 VIEW (PORTABLE) Stat Exams 03/04/22 12:57 Completed BLOOD CULTURE Stat Lab 03/04/22 12:55 Received CBC W DIFF Stat Lab 03/04/22 12:56 Completed CMP Stat Lab 03/04/22 13:21 Completed NT PRO BNP Stat Lab 03/04/22 13:21 Completed TROPONIN Q4H Lab 03/04/22 13:21 Completed TROPONIN Q4H Lab 03/04/22 17:00 Ordered TROPONIN Q4H Lab 03/04/22 21:00 Ordered UA W/RFX UR CULTURE Stat Lab 03/04/22 14:15 Ordered Medication Summary Discontinued Medications Generic Name Dose Route Start Last Admin Trade Name Freq PRN Reason Stop Dose Admin Furosemide 40 mg 03/04/22 14:13 03/04/22 14:19 Furosemide 40 Mg/4 Ml Vial IV 03/04/22 14:14 40 mg STAT ONE Administration Furosemide Confirm 03/04/22 14:18 Furosemide 40 Mg/4 Ml Vial Administered 03/04/22 14:19 Dose 40 mg .ROUTE .STK-MED ONE Nitroglycerin 1 gm 03/04/22 14:16 Nitroglycerin 1 Gm Packet TOP 03/04/22 14:17 STAT ONE Lab/Rad Data: Laboratory Result Diagrams 03/04/22 12:56 03/04/22 13:21 Laboratory Results 03/04/22 03/04/22 03/04/22 Range/Units Unknown 13:21 13:21 WBC (4.0-10.5) x10^3/uL RBC (4.1-5.6) x10^6/uL Hgb (12.5-18.0) g/dL Hct (42-50) % MCV (78-100) fL MCH (26-32) pg MCHC (32-36) g/dL RDW (11.5-14.0) % Plt Count (150-450) x10^3/uL MPV (7.5-11.0) fL Gran % (36.0-66.0) % Immature Gran % (Auto) (0.00-0.4) % Nucleat RBC Rel Count (0.00-0.1) % Eos # (Auto) (0-0.5) x10^3/uL Immature Gran # (Auto) (0.00-0.03) x10^3u/L Absolute Lymphs (auto) (1.0-4.6) x10^3/uL Absolute Monos (auto) (0.0-1.3) x10^3/uL Absolute Nucleated RBC (0.00-0.01) x10^3u/L Lymphocytes % (24.0-44.0) % Monocytes % (0.0-12.0) % Eosinophils % (0.00-5.0) % Basophils % (0.0-0.4) % Absolute Granulocytes (1.4-6.9) x10^3/uL Basophils # (0-0.4) x10^3/uL Sodium 135 L (137-145) mmol/L Potassium 3.7 (3.5-5.1) mmol/L Chloride 101 (98-107) mmol/L Carbon Dioxide 29 (22-30) mmol/L Anion Gap 9.3 (5-15) MEQ/L BUN 17 (9-20) mg/dL Creatinine 1.21 (0.66-1.25) mg/dL Estimated GFR > 60.0 ML/MIN Glucose 127 H (74-106) mg/dL Calcium 7.9 L (8.4-10.2) mg/dL Total Bilirubin 0.60 (0.2-1.3) mg/dL AST 22 (17-59) U/L ALT 14 (0-50) U/L Alkaline Phosphatase 77 (38-126) U/L Troponin I < 0.012 (0.000-0.034) ng/mL NT-Pro-B Natriuret Pep 7960 H (0-1800) pg/mL Serum Total Protein 6.7 (6.3-8.2) g/dL Albumin 3.2 L (3.5-5.0) g/dL Influenza Type A Ag NEGATIVE (NEGATIVE) Influenza Type B Ag NEGATIVE (NEGATIVE) RSV (PCR) NEGATIVE (Negative) SARS-CoV-2 (PCR) POSITIVE A (NEGATIVE) 03/04/22 Range/Units 12:56 WBC 4.1 (4.0-10.5) x10^3/uL RBC 5.45 (4.1-5.6) x10^6/uL Hgb 12.9 (12.5-18.0) g/dL Hct 44.0 (42-50) % MCV 80.7 (78-100) fL MCH 23.7 L (26-32) pg MCHC 29.3 L (32-36) g/dL RDW 17.3 H (11.5-14.0) % Plt Count 181 (150-450) x10^3/uL MPV 9.9 (7.5-11.0) fL Gran % 68.7 H (36.0-66.0) % Immature Gran % (Auto) 0.2 (0.00-0.4) % Nucleat RBC Rel Count 0.0 (0.00-0.1) % Eos # (Auto) 0.07 (0-0.5) x10^3/uL Immature Gran # (Auto) 0.01 (0.00-0.03) x10^3u/L Absolute Lymphs (auto) 0.82 L (1.0-4.6) x10^3/uL Absolute Monos (auto) 0.36 (0.0-1.3) x10^3/uL Absolute Nucleated RBC 0.00 (0.00-0.01) x10^3u/L Lymphocytes % 20.1 L (24.0-44.0) % Monocytes % 8.8 (0.0-12.0) % Eosinophils % 1.7 (0.00-5.0) % Basophils % 0.5 (0.0-0.4) % Absolute Granulocytes 2.79 (1.4-6.9) x10^3/uL Basophils # 0.02 (0-0.4) x10^3/uL Sodium (137-145) mmol/L Potassium (3.5-5.1) mmol/L Chloride (98-107) mmol/L Carbon Dioxide (22-30) mmol/L Anion Gap (5-15) MEQ/L BUN (9-20) mg/dL Creatinine (0.66-1.25) mg/dL Estimated GFR ML/MIN Glucose (74-106) mg/dL Calcium (8.4-10.2) mg/dL Total Bilirubin (0.2-1.3) mg/dL AST (17-59) U/L ALT (0-50) U/L Alkaline Phosphatase (38-126) U/L Troponin I (0.000-0.034) ng/mL NT-Pro-B Natriuret Pep (0-1800) pg/mL Serum Total Protein (6.3-8.2) g/dL Albumin (3.5-5.0) g/dL Influenza Type A Ag (NEGATIVE) Influenza Type B Ag (NEGATIVE) RSV (PCR) (Negative) SARS-CoV-2 (PCR) (NEGATIVE) - Progress Progress: improved Air Movement: good Progress Note: Patient is an 81-year-old male with a history of type 2 diabetes, COPD, congestive heart failure chronic A. fib currently on Eliquis, coronary artery disease, hyperlipidemia, history of MA with CABG and stents presents to our ED with progressive weight gain shortness of breath and generalized weakness. Patient's complain appears to be acute exacerbation of chronic congestive heart failure. Patient symptoms are moderate in intensity. Patient admitted to orthopnea. Labs ordered include EKG, chest x-ray, blood cultures, CBC, CMP, COVID, BNP, troponin. Chest x-ray reveals pulmonary edema and bibasilar effusions. Blood culture results pending. CBC noncontributory. CMP reveals hypocalcemia. Hypoalbuminemia. Brain atretic peptide is 7960. The combination of lower extremity pitting edema, orthopnea history of CHF, pulmonary congestion on chest x-ray and elevated BNP favor congestive heart failure with exacerbation/cardiac decompensation. Patient received a dose of IV Lasix in our ED. Nitroglycerin was held due to patient's blood pressure is mildly hypotensive. Patient has chronic atrial fibrillation and is anticoagulated. COVID test is positive. EKG reveals chronic atrial fibrillation. Rate is 86. Otherwise no acute findings. I personally ordered the above-mentioned exams and reviewed the results. The information obtained from the laboratory studies and review of the results contributed to by medical decision making. No outside medical records reviewed. Case discussed with Dr. Contreras who accepts admission to observation. Plan of care discussed with patient. He agrees to admission at [facility] for further evaluation and treatment. The level of EM service provided was moderate to high. Problems addressed include shortness of breath and congestive heart failure. 2 main problems addressed with moderate to high complexity. The amount of data and complexity of data reviewed and analyzed was moderate. Risk for complications and risk of morbidity/mortality is moderate. No critical care time. Patient served as an independent historian. No additional information was obtained from anyone other than the patient. Portions of this note were created with voice recognition technology. There may be grammatical, spelling, punctuation or sound alike errors 03/04/22 14:18 03/04/22 14:30 Blood Culture(s) Obtained: Yes Antibiotics given: No Counseled pt/family regarding: lab results, diagnosis, rad results - Departure Departure Disposition: Observation Clinical Impression: LE pitting edema, Orthopnea, Shortness of breath, CHF (congestive heart failure), Pleural effusion, Pulmonary edema, Hypocalcemia, COVID-19, Generalized weakness Condition: Stable Critical Care Time: No Referrals: CICI LAUREN [Primary Care Provider] - Follow up/PCP as directed Instructions: Heart Failure
[2022-03-04 13:28] LABS: Absolute Neutrophil Ct (ANC) 2.79 x10^3/uL (1.4-6.9); Basophil (Absolute #) 0.02 x10^3/uL (0-0.4); Eosinophil % 1.7 % (0.00-5.0); Eosinophil (Absolute #) 0.07 x10^3/uL (0-0.5); Hemoglobin 12.9 g/dL (12.5-18.0); Lymphocyte (Absolute #) 0.82 x10^3/uL (1.0-4.6); Lymphocytes % 20.1 % (24.0-44.0); Mean Cell Volume 80.7 fL (78-100); Mean Corpuscular Hemoglobin 23.7 pg (26-32); Mean Corpuscular Hgb Concent. 29.3 g/dL (32-36); Mean Platelet Volume 9.9 fL (7.5-11.0); Monocyte (Absolute #) 0.36 x10^3/uL (0.0-1.3); Monocytes % 8.8 % (0.0-12.0); Neutrophil % 68.7 % (36.0-66.0); Platelet Count 181 x10^3/uL (150-450); Red Blood Count 5.45 x10^6/uL (4.1-5.6); Red Cell Distribution Width 17.3 % (11.5-14.0); White Blood Count 4.1 x10^3/uL (4.0-10.5)
--- NOTE | 2022-03-04 13:41 | XRAY ---
Indication: Short of breath. Comparison: November 29, 2021 Portable chest demonstrates new cardiomegaly, diffuse pulmonary edema, and small bibasilar effusions favoring cardiac decompensation/CHF. Superimposed pneumonia not completely excluded. Bony thorax intact again with osteopenia and degenerative changes.
[2022-03-04 13:54] LABS: ALBUMIN 3.2 g/dL (3.5-5.0); ALKALINE PHOSPHATASE 77 U/L (38-126); ANION GAP 9.3 MEQ/L (5-15); BLOOD UREA NITROGEN 17 mg/dL (9-20); CHLORIDE 101 mmol/L (98-107); Calcium 7.9 mg/dL (8.4-10.2); Carbon Dioxide 29 mmol/L (22-30); Creatinine 1 1.21 mg/dL (0.66-1.25); EST GLOMERULAR FILTRATION RATE > 60.0 ML/MIN; Glucose 127 mg/dL (74-106); NT PRO BNP 7960 pg/mL (0-1800); Potassium 3.7 mmol/L (3.5-5.1); SGOT/AST 22 U/L (17-59); SGPT/ALT 14 U/L (0-50); SODIUM 135 mmol/L (137-145); Total Protein 6.7 g/dL (6.3-8.2)
[2022-03-04 14:05] LABS: INFLUENZA A NEGATIVE (NEGATIVE); INFLUENZA B NEGATIVE (NEGATIVE); RESPIRATORY SYNCTIAL VIRUS NEGATIVE (Negative)
[2022-03-04 14:13] LABS: SARS-CoV-2 Xpert Express POSITIVE (NEGATIVE)
[2022-03-04] MEDS ORDERED: Lasix 40 MG/4 ML IV ONE ×2 (14:13→14:42)
[2022-03-04] MEDS ORDERED: NITRO-BID 2% UD PACKETS TOP ONE (14:16)
[2022-03-04] MEDS ORDERED: Lasix 40 MG/4 ML ONE ×2 (14:18→14:58)
[2022-03-04 15:01] LABS: Appearance Clear (Clear); Bacteria None Seen /HPF (None Seen); Bilirubin Negative (Negative); Blood Negative (Negative); Epithelial Cells None Seen /HPF (None Seen); Glucose, Urine 500 mg/dL (Negative); Hyaline Casts 0-2 /LPF (0-2); Ketones Negative (Negative); Leukocyte Esterase Trace (Negative); Nitrite Negative (Negative); Ph 5.5 (4.6-8.0); Protein,Urine Dip Negative (Negative); RBC 0-2 /HPF (0-5); Urobilinogen 0.2 mg/dL (0.2); WBC 0-2 /HPF (0-5)
[2022-03-04 15:02] LABS: ADD URINE CULTURE? NO (NO)
[2022-03-04] MEDS ORDERED: TYLENOL 325 MG PO PRN (17:21)
[2022-03-04] MEDS ORDERED: Senokot-S Tablet PO PRN (17:21)
[2022-03-04] MEDS ORDERED: MAALOX ES 30 ML UNIT DOSE PO PRN (17:21)
[2022-03-04] MEDS ORDERED: MILK OF MAGNESIA 30 ML PO PRN (17:21)
[2022-03-04] MEDS ORDERED: Spiriva 18 Mcg/Cap Inhaler IH ONE (18:37)
[2022-03-04] MEDS: FLUTICASONE-SALMETEROL 250-50 IH SCH (18:41)
[2022-03-04] MEDS: Spiriva 18 Mcg/Cap Inhaler IH SCH (18:41)
[2022-03-04] MEDS ORDERED: COREG 12.5 MG PO SCH ×3 (22:00→22:48)
[2022-03-04] MEDS ORDERED: COREG 12.5 MG ONE (22:35)
[2022-03-04] MEDS: ENTRESTO 49 MG-51 MG TABLET PO SCH (22:44)
[2022-03-04] MEDS: ELIQUIS 2.5 MG TABLET PO SCH (22:45)
[2022-03-05 06:40] LABS: Hematocrit 40.7 % (42-50); Hemoglobin 11.9 g/dL (12.5-18.0); Mean Cell Volume 80.9 fL (78-100); Mean Corpuscular Hemoglobin 23.7 pg (26-32); Mean Corpuscular Hgb Concent. 29.2 g/dL (32-36); Platelet Count 174 x10^3/uL (150-450); Red Blood Count 5.03 x10^6/uL (4.1-5.6); White Blood Count 3.9 x10^3/uL (4.0-10.5)
[2022-03-05 07:05] LABS: ANION GAP 6.6 MEQ/L (5-15); BLOOD UREA NITROGEN 18 mg/dL (9-20); CHLORIDE 101 mmol/L (98-107); Calcium 7.8 mg/dL (8.4-10.2); Carbon Dioxide 32 mmol/L (22-30); Cholesterol 61 mg/dL (50-200); Creatinine 1 1.21 mg/dL (0.66-1.25); EST GLOMERULAR FILTRATION RATE > 60.0 ML/MIN; Glucose 104 mg/dL (74-106); HDL CHOLESTEROL 29 mg/dL (40-60); LDL, DIRECT < 36 mg/dL (30-100); NT PRO BNP 8660 pg/mL (0-1800); Potassium 3.6 mmol/L (3.5-5.1); Risk Ratio 2.1; SODIUM 137 mmol/L (137-145); TRIGLYCERIDE 64 mg/dL (30-150)
[2022-03-05] MEDS: Spiriva 18 Mcg/Cap Inhaler IH SCH ×2 (07:26→10:19)
[2022-03-05] MEDS: FLUTICASONE-SALMETEROL 250-50 IH SCH ×2 (07:26→18:48)
[2022-03-05] MEDS ORDERED: Lasix 40 MG/4 ML IV SCH (10:00)
[2022-03-05] MEDS ORDERED: NON-FORMULARY ITEM (Pravastatin Sodium [Pravachol] 40 MG Tablet) PO SCH (10:00)
[2022-03-05] MEDS ORDERED: NON-FORMULARY ITEM (Diltiazem Hcl [Diltiazem 24hr Er] 120 MG Cap.Sa.24h) PO SCH (10:00)
[2022-03-05] MEDS: Furosemide 100mg/10 ml Vial IV SCH (10:05)
[2022-03-05] MEDS: Coreg PO SCH ×2 (10:18→21:07)
[2022-03-05] MEDS: Cardizem CD PO SCH (10:18)
[2022-03-05] MEDS: ELIQUIS 2.5 MG TABLET PO SCH ×2 (10:18→21:07)
[2022-03-05] MEDS: Flomax 0.4 MG PO SCH (10:18)
[2022-03-05] MEDS: ENTRESTO 49 MG-51 MG TABLET PO SCH ×2 (10:18→21:07)
[2022-03-05] MEDS: ZOCOR 20MG PO SCH (10:18)
[2022-03-05] MEDS ORDERED: REMDESIVIR 200 MG in Sodium Chloride 0.9% 250 ML 250 ML IV ONE (14:00)
[2022-03-05] MEDS: DECADRON 10MG INJ. IV SCH (14:22)
[2022-03-06 04:35] LABS: Hematocrit 41.2 % (42-50); Hemoglobin 12.7 g/dL (12.5-18.0); Mean Corpuscular Hemoglobin 24.1 pg (26-32); Mean Corpuscular Hgb Concent. 30.8 g/dL (32-36); Mean Platelet Volume 10.2 fL (7.5-11.0); Platelet Count 188 x10^3/uL (150-450); Red Blood Count 5.28 x10^6/uL (4.1-5.6); Red Cell Distribution Width 17.3 % (11.5-14.0); White Blood Count 2.4 x10^3/uL (4.0-10.5)
[2022-03-06 04:43] LABS: ALBUMIN 3.1 g/dL (3.5-5.0); ALKALINE PHOSPHATASE 76 U/L (38-126); ANION GAP 9.1 MEQ/L (5-15); BLOOD UREA NITROGEN 20 mg/dL (9-20); CHLORIDE 99 mmol/L (98-107); Calcium 8.1 mg/dL (8.4-10.2); Carbon Dioxide 32 mmol/L (22-30); Creatinine 1 1.19 mg/dL (0.66-1.25); EST GLOMERULAR FILTRATION RATE > 60.0 ML/MIN; Glucose 240 mg/dL (74-106); NT PRO BNP 12800 pg/mL (0-1800); Potassium 3.6 mmol/L (3.5-5.1); SGOT/AST 22 U/L (17-59); SGPT/ALT 15 U/L (0-50); SODIUM 136 mmol/L (137-145); Total Protein 6.7 g/dL (6.3-8.2)
[2022-03-06] MEDS: Spiriva 18 Mcg/Cap Inhaler IH SCH (05:15)
[2022-03-06] MEDS: FLUTICASONE-SALMETEROL 250-50 IH SCH ×2 (05:15→19:09)
--- NOTE | 2022-03-06 07:13 | PCM.HP ---
History of Present Illness - Chief Complaint Chief Complaint: Congestive heart failure, COVID-19 Date: 03/05/22 (late entry for 03/05/22 0800) History of Present Illness: is a 81 year old male pt of mine from [facility] with DM II, COPD (on 2L NC), CAD (hx hx CO, CABG, stents, sees Dr. Nance), HLD, CHF, afib (on Eliquis), and hx rectal ca (with ostomy) who was admitted to hospital through ER for CHF exacerbation. Also found to be covid positive. Pt was weak wtih weight gain and increased LE edema at home - says he has been feeling worse for a couple of weeks, but worse for 4-5d. No fever. Was SOB wtih lots of cough. Cough is better after IV lasix and he is producing lots of urine. - Review of Systems Constitutional: Weakness, Other (weight gain) Respiratory: Cough, Short Of Breath Cardiac: Edema Abdominal/Gastrointestinal: Abdominal Pain (occ feels "like you've got the wind knocked out of you" but eats of catches his breath and is okay) All Other Systems: Reviewed and Negative Medications & Allergies Home Medications: Home Medication List Fluticasone/Salmeterol 115/21 [Advair Hfa 115/21 Common canister*] 2 puffs PO DAILY 12/08/17 [History Confirmed 03/04/22] Furosemide 20 mg PO DAILY 12/08/17 [History Confirmed 03/04/22] Metformin HCl 500 mg [Glucophage 500 MG] 500 mg PO DAILY 12/08/17 [History Confirmed 03/04/22] Pravastatin Sodium [Pravachol] 40 mg PO DAILY 12/08/17 [History Confirmed 03/04/22] glipiZIDE [Glipizide] 2.5 mg PO BID 12/08/17 [History Confirmed 03/04/22] Sacubitril/Valsartan [Entresto 49 mg-51 mg Tablet] 1 tab PO BID 11/29/21 [History Confirmed 03/04/22] Tamsulosin HCl 0.4 mg [Flomax 0.4 MG] 0.4 mg PO DAILY 11/29/21 [History Confirmed 03/04/22] Apixaban [Eliquis 2.5 mg Tablet] 2.5 mg PO BID #60 tablet 12/04/21 [Rx Confirmed 03/04/22] Empagliflozin [Jardiance] 10 mg PO DAILY@0800 #30 tablet 12/04/21 [Rx Confirmed 03/04/22] Carvedilol 3.125 mg [Coreg 3.125 MG] 6.25 mg PO BID 03/04/22 [History Confirmed 03/04/22] Diltiazem HCl [Diltiazem 24Hr ER] 120 mg PO DAILY 03/04/22 [History Confirmed 03/04/22] Tiotropium Martin [Spiriva Handihaler] 18 mcg PO DAILY 03/04/22 [History Confirmed 03/04/22] Allergies/Adverse Reactions: Allergies Allergy/AdvReac Type Severity Reaction Status Date / Time No Known Drug Allergies Allergy Verified 03/04/22 12:43 - Past Medical History Past Medical History: Yes Neurological History: No Pertinent History ENT History: No Pertinent History Cardiac History: Congestive Heart Failure, Coronary Artery Disease, Myocardial Infarction ([place]) Respiratory History: No Pertinent History Endocrine Medical History: No Pertinent History Musculoskelatal History: No Pertinent History GI Medical History: No Pertinent History History: No Pertinent History Pyscho-Social History: No Pertinent History Male Reproductive Disorders: No Pertinent History Comment: hx of rectal cancer, - Past Surgical History Past Surgical History: Yes Neuro Surgical History: No Pertinent History Cardiac History: CABG, Cardiac Catheterization, Cardiac Stent Respiratory Surgery: No Pertinent History GI Surgical History: No Pertinent History Genitourinary Surgical Hx: No Pertinent History Musculskeletal Surgical Hx: No Pertinent History Male Surgical History: No Pertinent History Other Surgical History: colostomy bag - Social History Smoking Status: Former smoker Exposure to second hand smoke: No Alcohol: Rarely Drug Use: none - Physical Exam Vital Signs: Vital Signs - 24 hr Temp Pulse Resp BP Pulse Ox 03/06/22 05:15 96 H 22 92 L 03/06/22 04:00 97.9 F 97 H 17 115/68 92 L 03/06/22 03:50 97.9 F 97 H 17 118/65 92 L 03/05/22 23:45 98.3 F 91 H 24 100/60 95 03/05/22 20:00 96.8 F 95 H 22 106/61 95 03/05/22 18:48 101 H 22 93 L 03/05/22 16:00 97.8 F 92 H 22 96/53 97 03/05/22 12:00 97.8 F 88 21 97/52 98 03/05/22 07:43 97.5 F 90 20 104/62 93 L 03/05/22 07:27 90 24 93 L General Appearance: no apparent distress, alert Neurologic Exam: oriented x 3, cooperative Eye Exam: eyes nml inspection Ears, Nose, Throat Exam: moist mucous membranes Neck Exam: normal inspection Respiratory Exam: diminished breath sounds, crackles/rales (bilat bases), No rhonchi, No wheezing Cardiovascular Exam: normal heart sounds, irregular, No murmur Gastrointestinal/Abdomen Exam: soft, normal bowel sounds, No tenderness, No distention, No mass, No guarding, No rebound Back Exam: normal inspection, No rash Extremity Exam: normal inspection, swelling (trace pretibial edema on L) Skin Exam: normal color, warm, dry, No rash Results - Labs Lab/Micro Results: Lab Results-Last 24 Hours 03/05/22 03/06/22 03/06/22 Range/Units 05:10 04:17 04:17 WBC 2.4 L (4.0-10.5) x10^3/uL RBC 5.28 (4.1-5.6) x10^6/uL Hgb 12.7 (12.5-18.0) g/dL Hct 41.2 L (42-50) % MCV 78.0 (78-100) fL MCH 24.1 L (26-32) pg MCHC 30.8 L (32-36) g/dL RDW 17.3 H (11.5-14.0) % Plt Count 188 (150-450) x10^3/uL MPV 10.2 (7.5-11.0) fL Sodium 137 136 L (137-145) mmol/L Potassium 3.6 3.6 (3.5-5.1) mmol/L Chloride 101 99 (98-107) mmol/L Carbon Dioxide 32 H 32 H (22-30) mmol/L Anion Gap 6.6 9.1 (5-15) MEQ/L BUN 18 20 (9-20) mg/dL Creatinine 1.21 1.19 (0.66-1.25) mg/dL Estimated GFR > 60.0 > 60.0 ML/MIN Glucose 104 240 H (74-106) mg/dL Calcium 7.8 L 8.1 L (8.4-10.2) mg/dL Magnesium (1.6-2.3) mg/dL Total Bilirubin 0.70 (0.2-1.3) mg/dL AST 22 (17-59) U/L ALT 15 (0-50) U/L Alkaline Phosphatase 76 (38-126) U/L NT-Pro-B Natriuret Pep 8660 H 21908 H (0-1800) pg/mL Serum Total Protein 6.7 (6.3-8.2) g/dL Albumin 3.1 L (3.5-5.0) g/dL Triglycerides 64 (30-150) mg/dL Cholesterol 61 (50-200) mg/dL LDL Cholesterol < 36 (30-100) mg/dL HDL Cholesterol 29 L (40-60) mg/dL Heart Disease Risk Ratio 2.1 03/06/22 Range/Units 04:17 WBC (4.0-10.5) x10^3/uL RBC (4.1-5.6) x10^6/uL Hgb (12.5-18.0) g/dL Hct (42-50) % MCV (78-100) fL MCH (26-32) pg MCHC (32-36) g/dL RDW (11.5-14.0) % Plt Count (150-450) x10^3/uL MPV (7.5-11.0) fL Sodium (137-145) mmol/L Potassium (3.5-5.1) mmol/L Chloride (98-107) mmol/L Carbon Dioxide (22-30) mmol/L Anion Gap (5-15) MEQ/L BUN (9-20) mg/dL Creatinine (0.66-1.25) mg/dL Estimated GFR ML/MIN Glucose (74-106) mg/dL Calcium (8.4-10.2) mg/dL Magnesium 2.0 (1.6-2.3) mg/dL Total Bilirubin (0.2-1.3) mg/dL AST (17-59) U/L ALT (0-50) U/L Alkaline Phosphatase (38-126) U/L NT-Pro-B Natriuret Pep (0-1800) pg/mL Serum Total Protein (6.3-8.2) g/dL Albumin (3.5-5.0) g/dL Triglycerides (30-150) mg/dL Cholesterol (50-200) mg/dL LDL Cholesterol (30-100) mg/dL HDL Cholesterol (40-60) mg/dL Heart Disease Risk Ratio - Radiology Impressions Radiology Exams & Impressions: Radiology Procedures Category Date Time Status CHEST 1 VIEW (PORTABLE) Stat Exams 03/04/22 12:57 Completed HEAD WITHOUT CONTRAST [CT] Stat Exams 03/06/22 03:54 Taken - Other Procedures and Tests Respiratory Therapy 03/05/22 07:00 Respiratory MDI BID 03/07/22 05:00 EKG ONCE Assessment/Plan (1) CHF exacerbation Current Visit: Yes Status: Acute Qualifiers: Heart failure type: unspecified Qualified Code(s): I50.9 - Heart failure, unspecified Assessment & Plan: Will get echo if none done in the past year. IV lasix, 80mg daily. Code(s): I50.9 - HEART FAILURE, UNSPECIFIED (2) COVID Current Visit: Yes Status: Acute Assessment & Plan: start remdesivir and dexamethasone Code(s): U07.1 - COVID-19 (3) COVID-19 Current Visit: Yes Status: Acute Code(s): U07.1 - COVID-19 (4) Generalized weakness Current Visit: Yes Status: Acute Code(s): R53.1 - WEAKNESS (5) Atrial fibrillation Current Visit: No Status: Chronic Qualifiers: Atrial fibrillation type: persistent (not longstanding) Qualified Code(s): I48.19 - Other persistent atrial fibrillation; I48.1 - Persistent atrial fibrillation Code(s): I48.91 - UNSPECIFIED ATRIAL FIBRILLATION (6) CAD (coronary artery disease) Current Visit: No Status: Chronic Qualifiers: Coronary Disease-Associated Artery/Lesion type: bypass graft [place] vs. transplanted heart: [place] heart Associated angina: without angina Qualified Code(s): I25.810 - Atherosclerosis of coronary artery bypass graft(s) without angina pectoris Code(s): I25.10 - ATHSCL HEART DISEASE OF [place] CORONARY ARTERY W/O ANG PCTRS (7) Diabetes mellitus Current Visit: No Status: Chronic Qualifiers: Diabetes mellitus type: type 2 Code(s): E11.9 - TYPE 2 DIABETES MELLITUS WITHOUT COMPLICATIONS (8) HTN (hypertension) Current Visit: No Status: Chronic Qualifiers: Hypertension type: primary hypertension Qualified Code(s): I10 - Essential (primary) hypertension Code(s): I10 - ESSENTIAL (PRIMARY) HYPERTENSION
--- NOTE | 2022-03-06 08:46 | XRAY ---
Indication: Head trauma following fall. Right frontal/right periorbital swelling. Multiple contiguous axial images obtained through the head without contrast. 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 No acute intracranial hemorrhage, abnormal extra-axial fluid collection, or mass effect. Fourth ventricle is midline without hydrocephalus. Right periorbital soft tissue swelling and mild midline posterior scalp hematoma. Incidental bilateral exophthalmus. Bony calvarium intact. Moderate mucosal thickening both ethmoid and lesser degree left maxillary sinuses with small left maxillary sinus fluid level. Mastoid air cells are clear. Impression: 1. 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 2. Right periorbital soft tissue swelling, posterior scalp hematoma, bilateral exophthalmus, and pansinusitis. Comment: Preliminary interpretation made by [facility]. No critical discrepancy.
[2022-03-06] MEDS: Flomax 0.4 MG PO SCH (09:46)
[2022-03-06] MEDS: Cardizem CD PO SCH (09:46)
[2022-03-06] MEDS: ZOCOR 20MG PO SCH (09:46)
[2022-03-06] MEDS: Coreg PO SCH ×2 (09:46→22:07)
[2022-03-06] MEDS: ELIQUIS 2.5 MG TABLET PO SCH ×2 (09:46→22:07)
[2022-03-06] MEDS: ENTRESTO 49 MG-51 MG TABLET PO SCH ×2 (09:46→22:07)
[2022-03-06] MEDS: DECADRON 10MG INJ. IV SCH ×2 (09:46→14:20)
[2022-03-06] MEDS: Furosemide 100mg/10 ml Vial IV SCH ×2 (09:47→14:20)
[2022-03-06] MEDS: REMDESIVIR 100 MG in Sodium Chloride 100ML MINI-BAG PLUS 100 ML IV SCH ×2 (10:04→14:20)
--- NOTE | 2022-03-06 12:17 | PCM.NOTE ---
Date and Time: 03/06/22 1211 Subjective Assessment: Pt became disoriented overnight, went out in the hallway, and fell, hitting his head. He had an enlarged "goose egg" on the back of his head initially, and he hit his R eye. CT head stat without contrast was nonacute. This morning he remembers falling, but does not remember going out into the hallway. He is not in any distress and is unconcerned about the swelling in his eye. Denies any headache. Objective Exam General Appearance: no apparent distress, alert Neurologic Exam: other (moves extremities equally.) Skin Exam: warm, dry, other (R posterior superior scalp with 4x4 cm area macular purple discoloration), No rash Eye Exam: other (R eyelides, inferior and superior, are grossly edematous and pt is unable to open the eye. No erythema or exudate. L eye wnl.) Ears, Nose, Throat Exam: moist mucous membranes Neck Exam: normal inspection Respiratory Exam: diminished breath sounds, crackles/rales (bilat bases, mild), No rhonchi, No wheezing Cardiovascular Exam: regular rate/rhythm, normal heart sounds, No murmur Gastrointestinal/Abdomen Exam: soft, normal bowel sounds, No distention Extremity Exam: normal inspection, swelling (trace LE edema) Back Exam: normal inspection, No rash OBJECTIVE DATA Vital Signs: Vital Signs - 24 hr Temp Pulse Resp BP Pulse Ox 03/06/22 08:00 97.0 F 93 H 18 116/68 96 03/06/22 05:15 96 H 22 92 L 03/06/22 04:00 97.9 F 97 H 17 115/68 92 L 03/06/22 03:50 97.9 F 97 H 17 118/65 92 L 03/05/22 23:45 98.3 F 91 H 24 100/60 95 03/05/22 20:00 96.8 F 95 H 22 106/61 95 03/05/22 18:48 101 H 22 93 L 03/05/22 16:00 97.8 F 92 H 22 96/53 97 Pain Assessment - Last Documented Pain Intensity 3 Intake and Output: Intake & Output 03/04/22 03/05/22 03/06/22 03/07/22 11:59 11:59 11:59 11:59 Intake Total 360 1200 Output Total 3000 1900 Balance -2640 -700 Weight 95.5 kg Lab Results: Lab Results-Last 24 Hours 03/06/22 03/06/22 03/06/22 Range/Units 04:17 04:17 04:17 WBC 2.4 L (4.0-10.5) x10^3/uL RBC 5.28 (4.1-5.6) x10^6/uL Hgb 12.7 (12.5-18.0) g/dL Hct 41.2 L (42-50) % MCV 78.0 (78-100) fL MCH 24.1 L (26-32) pg MCHC 30.8 L (32-36) g/dL RDW 17.3 H (11.5-14.0) % Plt Count 188 (150-450) x10^3/uL MPV 10.2 (7.5-11.0) fL Sodium 136 L (137-145) mmol/L Potassium 3.6 (3.5-5.1) mmol/L Chloride 99 (98-107) mmol/L Carbon Dioxide 32 H (22-30) mmol/L Anion Gap 9.1 (5-15) MEQ/L BUN 20 (9-20) mg/dL Creatinine 1.19 (0.66-1.25) mg/dL Estimated GFR > 60.0 ML/MIN Glucose 240 H (74-106) mg/dL Calcium 8.1 L (8.4-10.2) mg/dL Magnesium 2.0 (1.6-2.3) mg/dL Total Bilirubin 0.70 (0.2-1.3) mg/dL AST 22 (17-59) U/L ALT 15 (0-50) U/L Alkaline Phosphatase 76 (38-126) U/L NT-Pro-B Natriuret Pep 55011 H (0-1800) pg/mL Serum Total Protein 6.7 (6.3-8.2) g/dL Albumin 3.1 L (3.5-5.0) g/dL Radiology Exams: Radiology Procedures Category Date Time Status CHEST 1 VIEW (PORTABLE) Stat Exams 03/04/22 12:57 Completed HEAD WITHOUT CONTRAST [CT] Stat Exams 03/06/22 03:54 Completed Multi-Disciplinary Progress Notes: Multi-Disciplinary Progress Notes 03/06/22 10:47 Case Management Note by Janey Villa PATIENT STILL ACUTELY ILL- NO CHANGE IN DC PLANS AT THIS TIME. Initialized on 03/06/22 10:47 - END OF NOTE Assessment/Plan (1) CHF exacerbation Current Visit: Yes Status: Acute Qualifiers: Heart failure type: unspecified Qualified Code(s): I50.9 - Heart failure, unspecified Assessment & Plan: Had echo in Nov 2021. BNP actually a little higher today, although the lungs sound a little better. Continue lasix 80mg IV daily. Code(s): I50.9 - HEART FAILURE, UNSPECIFIED (2) Fall Current Visit: Yes Status: Acute Qualifiers: Encounter type: initial encounter Qualified Code(s): W19.XXXA - Unspecified fall, initial encounter Assessment & Plan: Per RN who just spent >1.5 h in the room with pt assisting him with ostomy; he is very unsteady, needs a walker and may well need a rehab stay before going home. will consult PT. Code(s): W19.XXXA - UNSPECIFIED FALL, INITIAL ENCOUNTER (3) COVID Current Visit: Yes Status: Acute Assessment & Plan: on day #2 remdesivir and dexamethasone Code(s): U07.1 - COVID-19 (4) COVID-19 Current Visit: Yes Status: Acute Code(s): U07.1 - COVID-19 (5) Generalized weakness Current Visit: Yes Status: Acute Code(s): R53.1 - WEAKNESS (6) Atrial fibrillation Current Visit: No Status: Chronic Qualifiers: Atrial fibrillation type: persistent (not longstanding) Qualified Code(s): I48.19 - Other persistent atrial fibrillation; I48.1 - Persistent atrial fibrillation Code(s): I48.91 - UNSPECIFIED ATRIAL FIBRILLATION (7) CAD (coronary artery disease) Current Visit: No Status: Chronic Qualifiers: Coronary Disease-Associated Artery/Lesion type: bypass graft [place] vs. transplanted heart: [place] heart Associated angina: without angina Qualified Code(s): I25.810 - Atherosclerosis of coronary artery bypass graft(s) without angina pectoris Code(s): I25.10 - ATHSCL HEART DISEASE OF [place] CORONARY ARTERY W/O ANG PCTRS (8) Diabetes mellitus Current Visit: No Status: Chronic Qualifiers: Diabetes mellitus type: type 2 Code(s): E11.9 - TYPE 2 DIABETES MELLITUS WITHOUT COMPLICATIONS (9) HTN (hypertension) Current Visit: No Status: Chronic Qualifiers: Hypertension type: primary hypertension Qualified Code(s): I10 - Essential (primary) hypertension Code(s): I10 - ESSENTIAL (PRIMARY) HYPERTENSION (10) Contusion, eye, right Current Visit: Yes Status: Acute Qualifiers: Encounter type: initial encounter Qualified Code(s): S05.11XA - Contusion o f eyeball and orbital tissues, right eye, initial encounter Assessment & Plan: staff to help pt put ice gently on/around the eye to mitigate swelling. Code(s): S05.11XA - CONTUSION OF EYEBALL AND ORBITAL TISSUES, RIGHT EYE, INIT
[2022-03-07] MEDS: FLUTICASONE-SALMETEROL 250-50 IH SCH ×2 (05:20→18:58)
[2022-03-07] MEDS: Spiriva 18 Mcg/Cap Inhaler IH SCH (05:20)
[2022-03-07 05:46] LABS: Hematocrit 41.2 % (42-50); Hemoglobin 12.5 g/dL (12.5-18.0); Mean Cell Volume 78.3 fL (78-100); Mean Corpuscular Hemoglobin 23.8 pg (26-32); Mean Corpuscular Hgb Concent. 30.3 g/dL (32-36); Mean Platelet Volume 9.8 fL (7.5-11.0); Platelet Count 179 x10^3/uL (150-450); Red Blood Count 5.26 x10^6/uL (4.1-5.6); Red Cell Distribution Width 17.2 % (11.5-14.0); White Blood Count 7.1 x10^3/uL (4.0-10.5)
[2022-03-07 06:21] LABS: ANION GAP 10.5 MEQ/L (5-15); BLOOD UREA NITROGEN 28 mg/dL (9-20); CHLORIDE 100 mmol/L (98-107); Calcium 8.2 mg/dL (8.4-10.2); Carbon Dioxide 31 mmol/L (22-30); Creatinine 1 1.23 mg/dL (0.66-1.25); EST GLOMERULAR FILTRATION RATE > 60.0 ML/MIN; Glucose 175 mg/dL (74-106); NT PRO BNP 12500 pg/mL (0-1800); Potassium 3.8 mmol/L (3.5-5.1); SODIUM 138 mmol/L (137-145)
--- NOTE | 2022-03-07 09:31 | PCM.NOTE ---
Date and Time: 03/07/22927 Subjective Assessment: Oriented x 3. Feeling "alright" breathing is better than at admission. Susi po. - Review of Systems Constitutional: No Fever Respiratory: Short Of Breath Objective Exam General Appearance: no apparent distress, alert Skin Exam: normal color, warm, dry, No rash Eye Exam: other (edema present R eyelids but quite reduced from yesterday; pt's eye is open and EOMI) Ears, Nose, Throat Exam: moist mucous membranes Neck Exam: normal inspection Respiratory Exam: diminished breath sounds (good air exchange), crackles/rales (faint, bases bilat), No rhonchi, No wheezing Cardiovascular Exam: normal heart sounds, irregular Extremity Exam: normal inspection, No pedal edema, No swelling OBJECTIVE DATA Vital Signs: Vital Signs - 24 hr Temp Pulse Resp BP Pulse Ox 03/07/22 05:10 80 16 96 03/07/22 04:00 97.7 F 78 20 94/65 92 L 03/07/22 00:00 97.9 F 94 H 19 130/94 95 03/06/22 19:52 97.6 F 86 23 99/59 97 03/06/22 19:09 90 16 98 03/06/22 16:00 97.6 F 94 H 18 91/63 91 L 03/06/22 13:56 92 H 18 95 03/06/22 12:00 96 H 17 115/61 95 Pain Assessment - Last Documented Pain Intensity 0 Intake and Output: Intake & Output 03/04/22 03/05/22 03/06/22 03/07/22 11:59 11:59 11:59 11:59 Intake Total 360 1200 740 Output Total 7160 6400 1475 Balance -9940 -1250 -735 Weight 95.5 kg Lab Results: Lab Results-Last 24 Hours 03/07/22 03/07/22 Range/Units 05:47 05:47 WBC 7.1 (4.0-10.5) x10^3/uL RBC 5.26 (4.1-5.6) x10^6/uL Hgb 12.5 (12.5-18.0) g/dL Hct 41.2 L (42-50) % MCV 78.3 (78-100) fL MCH 23.8 L (26-32) pg MCHC 30.3 L (32-36) g/dL RDW 17.2 H (11.5-14.0) % Plt Count 179 (150-450) x10^3/uL MPV 9.8 (7.5-11.0) fL Sodium 138 (137-145) mmol/L Potassium 3.8 (3.5-5.1) mmol/L Chloride 100 (98-107) mmol/L Carbon Dioxide 31 H (22-30) mmol/L Anion Gap 10.5 (5-15) MEQ/L BUN 28 H (9-20) mg/dL Creatinine 1.23 (0.66-1.25) mg/dL Estimated GFR > 60.0 ML/MIN Glucose 175 H (74-106) mg/dL Calcium 8.2 L (8.4-10.2) mg/dL NT-Pro-B Natriuret Pep 05769 H (0-1800) pg/mL Radiology Exams: Radiology Procedures Category Date Time Status HEAD WITHOUT CONTRAST [CT] Stat Exams 03/06/22 03:54 Completed Multi-Disciplinary Progress Notes: Multi-Disciplinary Progress Notes 03/06/22 10:47 Case Management Note by Janey Villa PATIENT STILL ACUTELY ILL- NO CHANGE IN DC PLANS AT THIS TIME. Initialized on 03/06/22 10:47 - END OF NOTE Assessment/Plan (1) CHF exacerbation Current Visit: Yes Status: Acute Qualifiers: Heart failure type: unspecified Qualified Code(s): I50.9 - Heart failure, unspecified Assessment & Plan: Improving. On 80mg IV lasix daily. Renal function preserved. Code(s): I50.9 - HEART FAILURE, UNSPECIFIED (2) Fall Current Visit: Yes Status: Acute Qualifiers: Encounter type: initial encounter Qualified Code(s): W19.XXXA - Unspecified fall, initial encounter Code(s): W19.XXXA - UNSPECIFIED FALL, INITIAL ENCOUNTER (3) COVID Current Visit: Yes Status: Acute Code(s): U07.1 - COVID-19 (4) Generalized weakness Current Visit: Yes Status: Acute Code(s): R53.1 - WEAKNESS (5) Atrial fibrillation Current Visit: No Status: Chronic Qualifiers: Atrial fibrillation type: persistent (not longstanding) Qualified Code(s): I48.19 - Other persistent atrial fibrillation; I48.1 - Persistent atrial fibrillation Code(s): I48.91 - UNSPECIFIED ATRIAL FIBRILLATION (6) CAD (coronary artery disease) Current Visit: No Status: Chronic Qualifiers: Coronary Disease-Associated Artery/Lesion type: bypass graft [place] vs. transplanted heart: [place] heart Associated angina: without angina Qualified Code(s): I25.810 - Atherosclerosis of coronary artery bypass graft(s) without angina pectoris Code(s): I25.10 - ATHSCL HEART DISEASE OF [place] CORONARY ARTERY W/O ANG PCTRS (7) Diabetes mellitus Current Visit: No Status: Chronic Qualifiers: Diabetes mellitus type: type 2 Code(s): E11.9 - TYPE 2 DIABETES MELLITUS WITHOUT COMPLICATIONS (8) HTN (hypertension) Current Visit: No Status: Chronic Qualifiers: Hypertension type: primary hypertension Qualified Code(s): I10 - Essential (primary) hypertension Code(s): I10 - ESSENTIAL (PRIMARY) HYPERTENSION (9) Contusion, eye, right Current Visit: Yes Status: Acute Qualifiers: Encounter type: initial encounter Qualified Code(s): S05.11XA - Contusion of eyeball and orbital tissues, right eye, initial encounter Assessment & Plan: much improved Code(s): S05.11XA - CONTUSION OF EYEBALL AND ORBITAL TISSUES, RIGHT EYE, INIT
[2022-03-07] MEDS: Flomax 0.4 MG PO SCH (09:38)
[2022-03-07] MEDS: ELIQUIS 2.5 MG TABLET PO SCH ×2 (09:39→22:24)
[2022-03-07] MEDS: DECADRON 10MG INJ. IV SCH (09:39)
[2022-03-07] MEDS: Coreg PO SCH ×2 (09:39→22:24)
[2022-03-07] MEDS: ZOCOR 20MG PO SCH (09:39)
[2022-03-07] MEDS: ENTRESTO 49 MG-51 MG TABLET PO SCH ×2 (09:39→22:24)
[2022-03-07] MEDS: Furosemide 100mg/10 ml Vial IV SCH (09:40)
[2022-03-07] MEDS: Cardizem CD PO SCH (09:42)
[2022-03-07] MEDS: WATER IV SCH (10:34)
[2022-03-07] MEDS: DEXTROSE IV SCH (10:34)
[2022-03-07] MEDS: REMDESIVIR IV SCH (10:34)
[2022-03-08 05:40] LABS: Hematocrit 39.9 % (42-50); Mean Cell Volume 77.6 fL (78-100); Mean Corpuscular Hemoglobin 23.3 pg (26-32); Mean Corpuscular Hgb Concent. 30.1 g/dL (32-36); Mean Platelet Volume 10.4 fL (7.5-11.0); Platelet Count 182 x10^3/uL (150-450); Red Blood Count 5.14 x10^6/uL (4.1-5.6); White Blood Count 8.5 x10^3/uL (4.0-10.5)
[2022-03-08 06:26] LABS: ANION GAP 9.6 MEQ/L (5-15); BLOOD UREA NITROGEN 34 mg/dL (9-20); CHLORIDE 98 mmol/L (98-107); Calcium 8.2 mg/dL (8.4-10.2); Carbon Dioxide 32 mmol/L (22-30); Creatinine 1 1.21 mg/dL (0.66-1.25); EST GLOMERULAR FILTRATION RATE > 60.0 ML/MIN; Glucose 208 mg/dL (74-106); NT PRO BNP 10700 pg/mL (0-1800); Potassium 3.5 mmol/L (3.5-5.1); SODIUM 136 mmol/L (137-145)
[2022-03-08] MEDS: Spiriva 18 Mcg/Cap Inhaler IH SCH (07:09)
[2022-03-08] MEDS: FLUTICASONE-SALMETEROL 250-50 IH SCH (07:09)
[2022-03-08 07:57] VITALS: BP 102/64; PULSE 80; O2SAT 98
--- NOTE | 2022-03-08 08:10 | PCM.DS ---
Discharge Summary Date of Admission: 03/05/22 08:00 Admitting Physician: CICI LAUREN Primary Care Provider: CICI LAUREN Allergies Allergies No Known Drug Allergies Allergy (Verified 03/04/22 12:43) Hospital Summary - Hospital Course Hospital Course: Pt is 81 yo male pt of mine with HTN, afib, CHF who was admitted with CHF exacerbation and positive COVID. He has received IV remdesivir and dexamethasone for 3 days. He did have a fall 2d ago and hit his head: CT head nonacute, but he did have a large amount of swelling of the R eye (this is improved but not resolved). Pt has been better since then. Breathing is good and he feels "fine." Has been on 80mg IV lasix daily. Is on entresto and cardizem at home; bp here in the 90s systolic, he states has always had some low BP. Has been more steady for staff since yesterday - does well with walker. Home on walker, lasix. RTC 1 week to f/u. - Vitals & Intake/Output Vital Signs: Vital Signs Temperature 98.0 F 03/08/22 07:56 Pulse Rate 80 03/08/22 07:56 Respiratory Rate 13 03/08/22 07:56 Blood Pressure 102/64 03/08/22 07:56 O2 Sat by Pulse Oximetry 98 03/08/22 07:56 Intake & Output: Intake & Output 03/05/22 03/06/22 03/07/22 03/08/22 11:59 11:59 11:59 11:59 Intake Total 360 1200 980 720 Output Total 3000 2450 1475 1460 Balance -5130 -1250 -495 -740 Weight 95.5 kg 95.3 kg - Lab Result Diagrams: 03/08/22 04:45 03/08/22 04:45 Lab Results-Last 24 Hrs: Lab Results-Last 24 Hours 03/08/22 03/08/22 Range/Units 04:45 04:45 WBC 8.5 (4.0-10.5) x10^3/uL RBC 5.14 (4.1-5.6) x10^6/uL Hgb 12.0 L (12.5-18.0) g/dL Hct 39.9 L (42-50) % MCV 77.6 L (78-100) fL MCH 23.3 L (26-32) pg MCHC 30.1 L (32-36) g/dL RDW 17.0 H (11.5-14.0) % Plt Count 182 (150-450) x10^3/uL MPV 10.4 (7.5-11.0) fL Sodium 136 L (137-145) mmol/L Potassium 3.5 (3.5-5.1) mmol/L Chloride 98 (98-107) mmol/L Carbon Dioxide 32 H (22-30) mmol/L Anion Gap 9.6 (5-15) MEQ/L BUN 34 H (9-20) mg/dL Creatinine 1.21 (0.66-1.25) mg/dL Estimated GFR > 60.0 ML/MIN Glucose 208 H (74-106) mg/dL Calcium 8.2 L (8.4-10.2) mg/dL NT-Pro-B Natriuret Pep 20490 H (0-1800) pg/mL Micro Results-Entire Visit: Microbiology 03/04/22 13:21 Blood Culture - Preliminary Blood NO GROWTH TO DATE 03/04/22 12:55 Blood Culture - Preliminary Blood NO GROWTH TO DATE - Procedures and Test Procedures and Tests throughout Hospitalization: Therapy Orders & Screens 03/04/22 17:21 EKG Q8HX2,QAMX3,PRN Comment: 03/04/22 17:25 Oxygen NASAL CANNULA 2 lpm Comment: Diagnosis: Congestive heart failure, COVID-19 03/04/22 17:54 Respiratory Therapy Assessment DAILY Comment: Diagnosis: Congestive heart failure, COVID-19 03/04/22 20:50 EKG ONCE Comment: Diagnosis: Congestive heart failure, COVID-19 03/05/22 05:00 EKG ONCE Comment: Diagnosis: Congestive heart failure, COVID-03/05/22 07:00 Respiratory MDI BID Comment: VINEET BID Diagnosis: Congestive heart failure, COVID-03/06/22 05:00 EKG ONCE Comment: Diagnosis: Congestive heart failure, COVID-19 03/06/22 12:22 PT Eval & Treat (MD Order) ONCE Reason for Eval:: Very unsteady gait. Fell last night. Diagnosis: CHF, COVID-19 03/07/22 05:00 EKG ONCE Comment: Diagnosis: Congestive heart failure, COVID-19 Discharge Exam General Appearance: no apparent distress, alert Neurologic Exam: oriented x 3, cooperative, normal mood/affect Eye Exam: other (R eye with mild edema upper and lower lids) Ears, Nose, Throat Exam: moist mucous membranes Neck Exam: normal inspection Respiratory Exam: normal breath sounds, No crackles/rales, No rhonchi, No wheezing Cardiovascular Exam: normal heart sounds, irregular, No murmur Gastrointestinal/Abdomen Exam: soft, normal bowel sounds, other (ostomy present), No tenderness, No distention, No mass, No guarding, No rebound Back Exam: normal inspection, No rash Final Diagnosis/Problem List - Final Discharge Diagnosis/Problem (1) CHF exacerbation Current Visit: Yes Status: Acute Assessment & Plan: Much improved Code(s): I50.9 - HEART FAILURE, UNSPECIFIED (2) Fall Current Visit: Yes Status: Acute Code(s): W19.XXXA - UNSPECIFIED FALL, INITIAL ENCOUNTER (3) COVID Current Visit: Yes Status: Acute Code(s): U07.1 - COVID-19 (4) Generalized weakness Current Visit: Yes Status: Acute Assessment & Plan: improved Code(s): R53.1 - WEAKNESS (5) Atrial fibrillation Current Visit: No Status: Chronic Code(s): I48.91 - UNSPECIFIED ATRIAL FIBRILLATION (6) CAD (coronary artery disease) Current Visit: No Status: Chronic Code(s): I25.10 - ATHSCL HEART DISEASE OF [place] CORONARY ARTERY W/O ANG PCTRS (7) Diabetes mellitus Current Visit: No Status: Chronic Code(s): E11.9 - TYPE 2 DIABETES MELLITUS WITHOUT COMPLICATIONS (8) HTN (hypertension) Current Visit: No Status: Chronic Code(s): I10 - ESSENTIAL (PRIMARY) HYPERTENSION (9) Contusion, eye, right Current Visit: Yes Status: Acute Code(s): S05.11XA - CONTUSION OF EYEBALL AND ORBITAL TISSUES, RIGHT EYE, INIT - Discharge Disposition: Home, Self-Care Condition: Stable Prescriptions: New Furosemide 40 mg [Lasix 40 MG] 40 mg PO DAILY #3 tablet Continue Furosemide 20 mg PO DAILY Fluticasone/Salmeterol 115/21 [Advair Hfa 115/21 Common canister*] 2 puffs PO DAILY glipiZIDE [Glipizide] 2.5 mg PO BID Pravastatin Sodium [Pravachol] 40 mg PO DAILY Metformin HCl 500 mg [Glucophage 500 MG] 500 mg PO DAILY Tamsulosin HCl 0.4 mg [Flomax 0.4 MG] 0.4 mg PO DAILY Sacubitril/Valsartan [Entresto 49 mg-51 mg Tablet] 1 tab PO BID Apixaban [Eliquis 2.5 mg Tablet] 2.5 mg PO BID #60 tablet Empagliflozin [Jardiance] 10 mg PO DAILY@0800 #30 tablet Carvedilol 3.125 mg [Coreg 3.125 MG] 6.25 mg PO BID Diltiazem HCl [Diltiazem 24Hr ER] 120 mg PO DAILY Tiotropium [place] [Spiriva Handihaler] 18 mcg PO DAILY Additional Instructions: [facility] HAS BEEN SET UP. THEY WILL CONTACT YOU TO ARRANGE A VISIT. THEIR PHONE NUMBER IS [phone] Follow up with: CICI LAUREN [Primary Care Provider] -
[2022-03-08] MEDS: ELIQUIS 2.5 MG TABLET PO SCH (09:05)
[2022-03-08] MEDS: Coreg PO SCH (09:05)
[2022-03-08] MEDS: ZOCOR 20MG PO SCH (09:05)
[2022-03-08] MEDS: ENTRESTO 49 MG-51 MG TABLET PO SCH (09:05)
[2022-03-08] MEDS: Flomax 0.4 MG PO SCH (09:05)
[2022-03-08] MEDS: DECADRON 10MG INJ. IV SCH (09:06)
[2022-03-08] MEDS: Cardizem CD PO SCH (09:06)
[2022-03-08] MEDS: Furosemide 100mg/10 ml Vial IV SCH (09:07)
[2022-03-08] MEDS: WATER IV SCH (09:09)
[2022-03-08] MEDS: DEXTROSE IV SCH (09:09)
[2022-03-08] MEDS: REMDESIVIR IV SCH (09:09)
== END 2022-03-08 11:20 | disposition home health service (06) | DRG 291 ==
LOC: ED 12:41 → MED SURG 16:50 → INTOOBSV 03-05 08:00 → OBSVTOIN 03-05 08:00
PROVIDERS: ADMIT Family Medicine; ATTEND Family Medicine
DX: I11.0 Hypertensive heart disease with heart failure (principal); U07.1 COVID-19; I50.9 Heart failure, unspecified; W19.XXXA Unspecified fall, initial encounter; R53.1 Weakness; I48.91 Unspecified atrial fibrillation; I25.10 Atherosclerotic heart disease of native coronary artery without angina pectoris; E11.9 Type 2 diabetes mellitus without complications; S05.11XA Contusion of eyeball and orbital tissues, right eye, initial encounter; R60.0 Localized edema; Z79.01 Long term (current) use of anticoagulants; Z79.899 Other long term (current) drug therapy; Z20.828 Contact with and (suspected) exposure to other viral communicable diseases; Z99.81 Dependence on supplemental oxygen; Z85.048 Personal history of other malignant neoplasm of rectum, rectosigmoid junction, and anus
CPT/HCPCS: 0241U; 36000; 36415; 70450; 71045; 80048; 80053; 80061; 81001; 83721; 83735; 83880; 84484; 85025; 85027; 87040; 93005; 93041; 93268; 94640; 94760; 94762; 96374; 96376; 99285; J0248; J1100; J1940; A9270-GY; G0378

== ENCOUNTER 2022-04-07 18:52 | Inpatient (IN) | payer MEDICARE, OTHER ==
[2022-04-07] MEDS ORDERED: Lasix 40 MG/4 ML IV ONE ×2 (19:25→21:06)
[2022-04-07] MEDS ORDERED: Lasix 40 MG/4 ML ONE ×2 (19:29→21:11)
[2022-04-07 19:34] LABS: Absolute Neutrophil Ct (ANC) 3.81 x10^3/uL (1.4-6.9); BASOPHIL % 0.6 % (0.0-0.4); Basophil (Absolute #) 0.03 x10^3/uL (0-0.4); Eosinophil % 1.7 % (0.00-5.0); Eosinophil (Absolute #) 0.09 x10^3/uL (0-0.5); Hematocrit 42.6 % (42-50); Hemoglobin 12.6 g/dL (12.5-18.0); IMMATURE GRAN # 0.01 x10^3u/L (0.00-0.03); IMMATURE GRAN % 0.2 % (0.00-0.4); Lymphocyte (Absolute #) 0.79 x10^3/uL (1.0-4.6); Lymphocytes % 14.9 % (24.0-44.0); Mean Cell Volume 78.9 fL (78-100); Mean Corpuscular Hemoglobin 23.3 pg (26-32); Mean Corpuscular Hgb Concent. 29.6 g/dL (32-36); Mean Platelet Volume 9.8 fL (7.5-11.0); Monocyte (Absolute #) 0.58 x10^3/uL (0.0-1.3); Monocytes % 10.9 % (0.0-12.0); Neutrophil % 71.7 % (36.0-66.0); Platelet Count 217 x10^3/uL (150-450); Red Cell Distribution Width 21.2 % (11.5-14.0); White Blood Count 5.3 x10^3/uL (4.0-10.5)
[2022-04-07 19:55] LABS: ALBUMIN 3.4 g/dL (3.5-5.0); ANION GAP 8.2 MEQ/L (5-15); BILIRUBIN,TOTAL 0.8 mg/dL (0.2-1.3); Calcium 8.4 mg/dL (8.4-10.2); Creatinine 1 1.41 mg/dL (0.66-1.25); EST GLOMERULAR FILTRATION RATE 51.4 ML/MIN; MAGNESIUM 2.2 mg/dL (1.6-2.3); Potassium 4.5 mmol/L (3.5-5.1); Total Protein 6.9 g/dL (6.3-8.2)
[2022-04-07 19:57] LABS: INR 1.53 (0.8-3.0); PROTIME 15.6 SECONDS (9.4-12.5); PTT 33.9 SECONDS (25.1-36.5)
[2022-04-07 19:59] LABS: D-DIMER QUANTITATIVE 3.21 mg/L (0.0-0.50)
[2022-04-07 20:11] LABS: INFLUENZA A NEGATIVE (NEGATIVE); INFLUENZA B NEGATIVE (NEGATIVE); RESPIRATORY SYNCTIAL VIRUS NEGATIVE (Negative); SARS-CoV-2 Xpert Express NEGATIVE (NEGATIVE)
--- NOTE | 2022-04-07 20:58 | ERPHSYRPT ---
- History of Present Illness Time Seen by Provider: 04/07/22 19:05 Source: patient, family, EMS Exam Limitations: no limitations Patient Subjective Stated Complaint: C/O SOB. Patient states he is normally SOB but it is much worse today. Patient states he started having some abdominal pain today that seemed to make his SOB worse. Triage Nursing Assessment: Patient arrived by ambulance wearing 02 @ 5L per N/C and sating 99% with this therapy. Patient normally wears 02 @ 2L per N/C during the day and 3L at night. Patient has rapid, laborded breathing. He is alert and oriented. Crackles noted to bilateral lung bases. No cough. Pitting edema noted to BLE, lower back, hips, abdomen. Physician History: Patient is an 81-year-old male who has a long history of congestive heart failure. He presents with a complaint of increasing shortness of breath over the past 5 days with a 6 pound weight gain. He is on chronic O2 consisting of 2 L during the day and 3 L at night. He was noted to be in atrial fib with a rapid ventricular response by EMS rate from 1 10-1 40. He has a history of diabetes type 2 COPD. Also history of coronary artery disease hyperlipidemia congestive heart failure and an ID in the past. He has also had a CABG and a stent. He is significantly more swollen than normal. He was hospitalized here approximately 3 weeks ago and was treated by his primary care provider. 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 Symptoms are improved sitting up and at rest. Patient is on Eliquis.A recent echocardiogram showed ejection fraction of 20 to 25%. Timing/Duration: day(s) (5) Activities at Onset: none Severity of Dyspnea-Max: moderate Severity of Dyspnea-Current: moderate Possible Cause: occasional episodes Modifying Factors: Improves With: lying down, oxygen, rest Associated Symptoms: lightheadedness, weakness, ankle swelling, lightheadedness Allergies/Adverse Reactions: No Known Drug Allergies Allergy (Verified 04/07/22 18:56) Home Medications: Fluticasone/Salmeterol 115/21 [Advair Hfa 115/21 Common canister*] 2 puffs PO DAILY 12/08/17 [History] Metformin HCl 500 mg [Glucophage 500 MG] 500 mg PO DAILY 12/08/17 [History] Pravastatin Sodium [Pravachol] 40 mg PO DAILY 12/08/17 [History] Sacubitril/Valsartan [Entresto 49 mg-51 mg Tablet] 1 tab PO BID 11/29/21 [History] Tamsulosin HCl 0.4 mg [Flomax 0.4 MG] 0.4 mg PO DAILY 11/29/21 [History] Carvedilol 3.125 mg [Coreg 3.125 MG] 6.25 mg PO BID 03/04/22 [History] Tiotropium [place] [Spiriva Handihaler] 18 mcg PO DAILY 03/04/22 [History] Potassium Chloride [Klor-Con 10] 10 meq PO DAILY 04/07/22 [History] Hx Tetanus, Diphtheria Vaccination/Date Given: Yes Hx Influenza Vaccination/Date Given: No Hx Pneumococcal Vaccination/Date Given: No Immunizations Up to Date: Yes Travel Risk - International Travel Have you traveled outside of the country in past 3 weeks: No - Coronavirus Screening Are you exhibiting any of the following symptoms?: Yes Symptoms: Shortness of Breath Close contact with a COVID-19 positive Pt in past 14-21 Days: No - Vaccine Status Have you recieved a Covid-19 vaccination: Yes 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 - Vaccination Dates Date of 2cond Vaccination (if applicable): unknown - Review of Systems Constitutional: Weakness, No Fever, No Chills Eyes: No Symptoms Ears, Nose, & Throat: No Symptoms Respiratory: Dyspnea, Dyspnea on Exertion (ARCE), Other (Orthopnea), No Cough Cardiac: Palpitations, Orthopnea, No Chest Pain, No Edema, No Syncope Abdominal/Gastrointestinal: Other (Abdominal distention contributing to shortness of breath), No Abdominal Pain, No Nausea, No Vomiting, No Diarrhea Genitourinary Symptoms: No Dysuria Musculoskeletal: No Back Pain, No Neck Pain Skin: No Symptoms, No Rash Neurological: No Dizziness, No Focal Weakness, No Sensory Changes Psychological: No Symptoms Endocrine: No Symptoms All Other Systems: Reviewed and Negative - Past Medical History Pertinent Past Medical History: Yes Neurological History: No Pertinent History ENT History: No Pertinent History Cardiac History: Congestive Heart Failure, Coronary Artery Disease, Myocardial Infarction (ID) Respiratory History: No Pertinent History Endocrine Medical History: No Pertinent History Musculoskeletal History: No Pertinent History GI Medical History: No Pertinent History History: No Pertinent History Psycho-Social History: No Pertinent History Male Reproductive Disorders: No Pertinent History Other Medical History: hx of rectal cancer - Past Surgical History Past Surgical History: Yes Neuro Surgical History: No Pertinent History Cardiac: CABG, Cardiac Catheterization, Cardiac Stent Respiratory: No Pertinent History Gastrointestinal: No Pertinent History Genitourinary: No Pertinent History Musculoskeletal: No Pertinent History Male Surgical History: No Pertinent History Other Surgical History: colostomy bag to left quad - Social History Smoking Status: Former smoker Exposure to second hand smoke: No Drug Use: none Patient Lives Alone: No - Nursing Vital Signs Nursing Vital Signs: Initial Vital Signs Temperature 97 F 04/07/22 18:57 Pulse Rate 116 H 04/07/22 18:57 Respiratory Rate 38 H 04/07/22 18:57 Blood Pressure 88/62 04/07/22 18:57 O2 Sat by Pulse Oximetry 99 04/07/22 18:57 Pain Scale Pain Intensity 0 - Physical Exam General Appearance: mild distress Eye Exam: PERRL/EOMI Neck Exam: JVD Respiratory Exam: crackles/rales (Bilateral basilar rales) Cardiovascular/Chest Exam: tachycardia Abdominal/Gastrointestinal Exam: soft, normal bowel sounds Extremity Exam: pedal edema (4+) Neurologic Exam: alert, oriented x 3, cooperative Skin Exam: warm, dry SpO2 Interpretation: O2 applied SpO2: 96 O2 Delivery: Nasal Cannula - Course EKG Interpreted by Me: RATE (125), A-fib, prolonged QT interval, Non-specific ST Changes - Radiology Exams Chest X-ray Interpretation: Interpreted by me, Other (Chest x-ray shows bilateral pleural effusions and CHF) Ordered Tests: Active Orders 24 hr Category Date Time Status EKG-ER Only STAT Care 04/07/22 19:04 Active IV Insertion STAT Care 04/07/22 19:04 Active Oxygen-ED Only Nasal Cannula 2 lpm Care 04/07/22 19:04 Active CHEST 1 VIEW (PORTABLE) Stat Exams 04/07/22 19:04 Taken CBC W DIFF Stat Lab 04/07/22 19:31 Completed CMP Stat Lab 04/07/22 19:31 Completed D-DIMER QUANTITATIVE Stat Lab 04/07/22 19:31 Completed Lactic Acid Stat Lab 04/07/22 19:27 Completed MAGNESIUM Stat Lab 04/07/22 19:31 Completed NT PRO BNP Stat Lab 04/07/22 19:31 Completed PROTIME WITH INR Stat Lab 04/07/22 19:31 Completed PTT Stat Lab 04/07/22 19:31 Completed TROPONIN Q4H Lab 04/07/22 19:31 Completed TROPONIN Q4H Lab 04/07/22 23:15 Ordered TROPONIN Q4H Lab 04/08/22 03:15 Ordered UA W/RFX UR CULTURE Stat Lab 04/07/22 19:04 Ordered Medication Summary Discontinued Medications Generic Name Dose Route Start Last Admin Trade Name Shaquilleq PRN Reason Stop Dose Admin Furosemide 40 mg 04/07/22 19:25 04/07/22 19:45 Furosemide 40 Mg/4 Ml Vial IV 04/07/22 19:26 40 mg STAT ONE Administration Furosemide Confirm 04/07/22 19:29 Furosemide 40 Mg/4 Ml Vial Administered 04/07/22 19:30 Dose 40 mg .ROUTE .[place]-MED ONE Lab/Rad Data: Laboratory Result Diagrams 04/07/22 19:31 04/07/22 19:31 Laboratory Results 04/07/22 04/07/22 04/07/22 Range/Units 19:31 19:31 19:31 WBC (4.0-10.5) x10^3/uL RBC (4.1-5.6) x10^6/uL Hgb (12.5-18.0) g/dL Hct (42-50) % MCV (78-100) fL MCH (26-32) pg MCHC (32-36) g/dL RDW (11.5-14.0) % Plt Count (150-450) x10^3/uL MPV (7.5-11.0) fL Gran % (36.0-66.0) % Immature Gran % (Auto) (0.00-0.4) % Nucleat RBC Rel Count (0.00-0.1) % Eos # (Auto) (0-0.5) x10^3/uL Immature Gran # (Auto) (0.00-0.03) x10^3u/L Absolute Lymphs (auto) (1.0-4.6) x10^3/uL Absolute Monos (auto) (0.0-1.3) x10^3/uL Absolute Nucleated RBC (0.00-0.01) x10^3u/L Lymphocytes % (24.0-44.0) % Monocytes % (0.0-12.0) % Eosinophils % (0.00-5.0) % Basophils % (0.0-0.4) % Absolute Granulocytes (1.4-6.9) x10^3/uL Basophils # (0-0.4) x10^3/uL PT 15.6 H (9.4-12.5) SECONDS INR 1.53 (0.8-3.0) APTT 33.9 (25.1-36.5) SECONDS D-Dimer 3.21 H* (0.0-0.50) mg/L Sodium (137-145) mmol/L Potassium (3.5-5.1) mmol/L Chloride (98-107) mmol/L Carbon Dioxide (22-30) mmol/L Anion Gap (5-15) MEQ/L BUN (9-20) mg/dL Creatinine (0.66-1.25) mg/dL Estimated GFR ML/MIN Glucose (74-106) mg/dL Lactic Acid (0.4-2.0) Calcium (8.4-10.2) mg/dL Magnesium (1.6-2.3) mg/dL Total Bilirubin (0.2-1.3) mg/dL AST (17-59) U/L ALT (0-50) U/L Alkaline Phosphatase (38-126) U/L Troponin I 0.013 (0.000-0.034) ng/mL NT-Pro-B Natriuret Pep (0-1800) pg/mL Serum Total Protein (6.3-8.2) g/dL Albumin (3.5-5.0) g/dL Influenza Type A Ag NEGATIVE (NEGATIVE) Influenza Type B Ag NEGATIVE (NEGATIVE) RSV (PCR) NEGATIVE (Negative) SARS-CoV-2 (PCR) NEGATIVE (NEGATIVE) 04/07/22 04/07/22 04/07/22 Range/Units 19:31 19:31 19:27 WBC 5.3 (4.0-10.5) x10^3/uL RBC 5.40 (4.1-5.6) x10^6/uL Hgb 12.6 (12.5-18.0) g/dL Hct 42.6 (42-50) % MCV 78.9 (78-100) fL MCH 23.3 L (26-32) pg MCHC 29.6 L (32-36) g/dL RDW 21.2 H (11.5-14.0) % Plt Count 217 (150-450) x10^3/uL MPV 9.8 (7.5-11.0) fL Gran % 71.7 H (36.0-66.0) % Immature Gran % (Auto) 0.2 (0.00-0.4) % Nucleat RBC Rel Count 0.0 (0.00-0.1) % Eos # (Auto) 0.09 (0-0.5) x10^3/uL Immature Gran # (Auto) 0.01 (0.00-0.03) x10^3u/L Absolute Lymphs (auto) 0.79 L (1.0-4.6) x10^3/uL Absolute Monos (auto) 0.58 (0.0-1.3) x10^3/uL Absolute Nucleated RBC 0.00 (0.00-0.01) x10^3u/L Lymphocytes % 14.9 L (24.0-44.0) % Monocytes % 10.9 (0.0-12.0) % Eosinophils % 1.7 (0.00-5.0) % Basophils % 0.6 (0.0-0.4) % Absolute Granulocytes 3.81 (1.4-6.9) x10^3/uL Basophils # 0.03 (0-0.4) x10^3/uL PT (9.4-12.5) SECONDS INR (0.8-3.0) APTT (25.1-36.5) SECONDS D-Dimer (0.0-0.50) mg/L Sodium 135 L (137-145) mmol/L Potassium 4.5 (3.5-5.1) mmol/L Chloride 100 (98-107) mmol/L Carbon Dioxide 32 H (22-30) mmol/L Anion Gap 8.2 (5-15) MEQ/L BUN 27 H (9-20) mg/dL Creatinine 1.41 H (0.66-1.25) mg/dL Estimated GFR 51.4 ML/MIN Glucose 98 (74-106) mg/dL Lactic Acid 1.8 (0.4-2.0) Calcium 8.4 (8.4-10.2) mg/dL Magnesium 2.2 (1.6-2.3) mg/dL Total Bilirubin 0.80 (0.2-1.3) mg/dL AST 27 (17-59) U/L ALT 18 (0-50) U/L Alkaline Phosphatase 102 (38-126) U/L Troponin I (0.000-0.034) ng/mL NT-Pro-B Natriuret Pep 7800 H (0-1800) pg/mL Serum Total Protein 6.9 (6.3-8.2) g/dL Albumin 3.4 L (3.5-5.0) g/dL Influenza Type A Ag (NEGATIVE) Influenza Type B Ag (NEGATIVE) RSV (PCR) (Negative) SARS-CoV-2 (PCR) (NEGATIVE) - Progress Progress: unchanged Air Movement: good Blood Culture(s) Obtained: No Antibiotics given: No Discussed with : Shaggy Will see patient in: hospital (observation) Medical Desision Making - Independent Historian Additional History obtained from: Child, EMS - External Record(s) Reviewed Records reviewed as a part of evaluation & management: Inpatient - Discussion of managment Care discussed with:: on-call "doc" Reviewed:: Test results Agreed on:: Treatment plan Will see patient: in hospital - Diagnostic Testing Diagnostic Testing: Diagnostic tests were ordered,analyzed, and reviewed by me and used in my medical decision making for this patient. Radiologic studies (if ordered) were read by me initially then discussed with the radiologist . - Risk of complications The pt has a mod risk of morbidity or mortality based on: Need for prescription drug management The pt has a high risk of morbidity or mortality based on: Drug therapy requiring intensive monitoring for toxicity - Departure Departure Disposition: Observation Clinical Impression: Congestive heart failure, Elevated brain natriuretic peptide (BNP) level Condition: Fair Critical Care Time: Yes Critical Care Time(excluding separately billable procedures): Critical 30-74 mins Referrals: CICI LAUREN [Primary Care Provider] - Follow up/PCP as directed Instructions: Heart Failure
[2022-04-07 22:05] LABS: Appearance Clear (Clear); Bacteria None Seen /HPF (None Seen); Bilirubin Negative (Negative); Blood Small (Negative); Epithelial Cells None Seen /HPF (None Seen); Glucose, Urine 100 mg/dL (Negative); Ketones Negative (Negative); Leukocyte Esterase Negative (Negative); Nitrite Negative (Negative); Ph 5.5 (4.6-8.0); Protein,Urine Dip 30 (Negative)
[2022-04-07 22:06] LABS: ADD URINE CULTURE? NO (NO)
[2022-04-08] MEDS: Furosemide 100mg/10 ml Vial IV SCH ×2 (00:03→06:28)
[2022-04-08 05:21] LABS: Hematocrit 39.9 % (42-50); Hemoglobin 11.7 g/dL (12.5-18.0); Mean Cell Volume 78.1 fL (78-100); Mean Corpuscular Hemoglobin 22.9 pg (26-32); Mean Corpuscular Hgb Concent. 29.3 g/dL (32-36); Mean Platelet Volume 9.5 fL (7.5-11.0); Platelet Count 187 x10^3/uL (150-450); Red Blood Count 5.11 x10^6/uL (4.1-5.6); Red Cell Distribution Width 20.9 % (11.5-14.0); White Blood Count 6.1 x10^3/uL (4.0-10.5)
[2022-04-08 05:53] LABS: Calcium 8.1 mg/dL (8.4-10.2); Creatinine 1 1.28 mg/dL (0.66-1.25); EST GLOMERULAR FILTRATION RATE 57.5 ML/MIN
[2022-04-08] MEDS: Spiriva 18 Mcg/Cap Inhaler IH SCH (07:30)
[2022-04-08] MEDS: Advair Hfa 115/21 Common canister IH SCH ×2 (07:30→18:27)
--- NOTE | 2022-04-08 08:10 | PCM.HP ---
History of Present Illness - Chief Complaint Chief Complaint: CHF History of Present Illness: is a 81 year old male patient of Dr Contreras with history of a fib and chf, follows with Dr Vasques. He came to the ER due to shortness of breath with associated swelling in the lower extremities and orthopnea. normally wears 2L oxygen during the day and 3L at night and was on 5L flow when he presented with obvious volume overload. - Review of Systems Constitutional: No Fever, No Chills Respiratory: No Symptoms, Short Of Breath Cardiac: Edema, Orthopnea Abdominal/Gastrointestinal: No Abdominal Pain, No Nausea, No Vomiting, No Diarrhea Genitourinary Symptoms: No Dysuria Skin: No Rash All Other Systems: Reviewed and Negative Medications & Allergies Home Medications: Home Medication List Fluticasone/Salmeterol 115/21 [Advair Hfa 115/21 Common canister*] 2 puffs PO DAILY 12/08/17 [History Confirmed 04/07/22] Metformin HCl 500 mg [Glucophage 500 MG] 500 mg PO DAILY 12/08/17 [History Confirmed 04/07/22] Pravastatin Sodium [Pravachol] 40 mg PO DAILY 12/08/17 [History Confirmed 04/07/22] Sacubitril/Valsartan [Entresto 49 mg-51 mg Tablet] 1 tab PO BID 11/29/21 [History Confirmed 04/07/22] Tamsulosin HCl 0.4 mg [Flomax 0.4 MG] 0.4 mg PO DAILY 11/29/21 [History Confirmed 04/07/22] Apixaban [Eliquis 2.5 mg Tablet] 2.5 mg PO BID #60 tablet 12/04/21 [Rx Confirmed 04/07/22] Empagliflozin [Jardiance] 10 mg PO DAILY@0800 #30 tablet 12/04/21 [Rx Confirmed 04/07/22] Carvedilol 3.125 mg [Coreg 3.125 MG] 6.25 mg PO BID 03/04/22 [History Confirmed 04/07/22] Tiotropium [place] [Spiriva Handihaler] 18 mcg PO DAILY 03/04/22 [History Confirmed 04/07/22] Furosemide 40 mg [Lasix 40 MG] 40 mg PO DAILY #3 tablet 03/08/22 [Rx Confirmed 04/07/22] Potassium Chloride [Klor-Con 10] 10 meq PO DAILY 04/07/22 [History Confirmed 04/07/22] Allergies/Adverse Reactions: Allergies Allergy/AdvReac Type Severity Reaction Status Date / Time No Known Drug Allergies Allergy Verified 04/07/22 18:56 - Past Medical History Past Medical History: Yes Neurological History: No Pertinent History ENT History: No Pertinent History Cardiac History: Congestive Heart Failure, Coronary Artery Disease, Myocardial Infarction (OR) Respiratory History: COPD Endocrine Medical History: No Pertinent History Musculoskelatal History: No Pertinent History GI Medical History: No Pertinent History History: No Pertinent History Pyscho-Social History: No Pertinent History Male Reproductive Disorders: No Pertinent History Comment: hx of rectal cancer - Past Surgical History Past Surgical History: Yes Neuro Surgical History: No Pertinent History Cardiac History: CABG, Cardiac Catheterization, Cardiac Stent Respiratory Surgery: No Pertinent History GI Surgical History: No Pertinent History Genitourinary Surgical Hx: No Pertinent History Musculskeletal Surgical Hx: No Pertinent History Male Surgical History: No Pertinent History Other Surgical History: colostomy bag to left quad - Social History Smoking Status: Former smoker Exposure to second hand smoke: No Alcohol: Rarely Drug Use: none - Physical Exam Vital Signs: Vital Signs - 24 hr Temp Pulse Resp BP Pulse Ox 04/08/22 07:28 98.0 F 115 H 16 97/62 97 04/08/22 04:00 98.0 F 116 H 24 101/64 98 04/07/22 23:20 98.2 F 109 H 24 99/76 95 04/07/22 21:29 134 H 26 H 99/70 94 L 04/07/22 21:14 96 04/07/22 21:05 118 H 28 H 86/65 96 04/07/22 20:17 109 H 31 H 97/67 96 04/07/22 18:57 97 F 116 H 38 H 88/62 99 General Appearance: no apparent distress Neurologic Exam: alert, oriented x 3 Respiratory Exam: crackles/rales Cardiovascular Exam: irregular Gastrointestinal/Abdomen Exam: soft, normal bowel sounds, No tenderness, No mass Extremity Exam: pedal edema, swelling Results - Labs Lab/Micro Results: Lab Results-Last 24 Hours 04/07/22 04/07/22 04/07/22 Range/Units 19:27 19:31 19:31 WBC 5.3 (4.0-10.5) x10^3/uL RBC 5.40 (4.1-5.6) x10^6/uL Hgb 12.6 (12.5-18.0) g/dL Hct 42.6 (42-50) % MCV 78.9 (78-100) fL MCH 23.3 L (26-32) pg MCHC 29.6 L (32-36) g/dL RDW 21.2 H (11.5-14.0) % Plt Count 217 (150-450) x10^3/uL MPV 9.8 (7.5-11.0) fL Gran % 71.7 H (36.0-66.0) % Immature Gran % (Auto) 0.2 (0.00-0.4) % Nucleat RBC Rel Count 0.0 (0.00-0.1) % Eos # (Auto) 0.09 (0-0.5) x10^3/uL Immature Gran # (Auto) 0.01 (0.00-0.03) x10^3u/L Absolute Lymphs (auto) 0.79 L (1.0-4.6) x10^3/uL Absolute Monos (auto) 0.58 (0.0-1.3) x10^3/uL Absolute Nucleated RBC 0.00 (0.00-0.01) x10^3u/L Lymphocytes % 14.9 L (24.0-44.0) % Monocytes % 10.9 (0.0-12.0) % Eosinophils % 1.7 (0.00-5.0) % Basophils % 0.6 (0.0-0.4) % Absolute Granulocytes 3.81 (1.4-6.9) x10^3/uL Basophils # 0.03 (0-0.4) x10^3/uL PT (9.4-12.5) SECONDS INR (0.8-3.0) APTT (25.1-36.5) SECONDS D-Dimer (0.0-0.50) mg/L Sodium 135 L (137-145) mmol/L Potassium 4.5 (3.5-5.1) mmol/L Chloride 100 (98-107) mmol/L Carbon Dioxide 32 H (22-30) mmol/L Anion Gap 8.2 (5-15) MEQ/L BUN 27 H (9-20) mg/dL Creatinine 1.41 H (0.66-1.25) mg/dL Estimated GFR 51.4 ML/MIN Glucose 98 (74-106) mg/dL Lactic Acid 1.8 (0.4-2.0) Calcium 8.4 (8.4-10.2) mg/dL Magnesium 2.2 (1.6-2.3) mg/dL Total Bilirubin 0.80 (0.2-1.3) mg/dL AST 27 (17-59) U/L ALT 18 (0-50) U/L Alkaline Phosphatase 102 (38-126) U/L Troponin I (0.000-0.034) ng/mL NT-Pro-B Natriuret Pep 7800 H (0-1800) pg/mL Serum Total Protein 6.9 (6.3-8.2) g/dL Albumin 3.4 L (3.5-5.0) g/dL Urine Color (Yellow) Urine Appearance (Clear) Urine pH (4.6-8.0) Ur Specific [place] (1.005-1.030) Urine Protein (Negative) Urine Glucose (UA) (Negative) mg/dL Urine Ketones (Negative) Urine Blood (Negative) Urine Nitrite (Negative) Urine Bilirubin (Negative) Urine Urobilinogen (0.2) mg/dL Ur Leukocyte Esterase (Negative) U Hyaline Cast (Auto) (0-2) /LPF Urine Microscopic RBC (0-5) /HPF Urine Microscopic WBC (0-5) /HPF Ur Epithelial Cells (None Seen) /HPF Urine Bacteria (None Seen) /HPF Urine Culture Reflexed (NO) Influenza Type A Ag (NEGATIVE) Influenza Type B Ag (NEGATIVE) RSV (PCR) (Negative) SARS-CoV-2 (PCR) (NEGATIVE) 04/07/22 04/07/22 04/07/22 Range/Units 19:31 19:31 19:31 WBC (4.0-10.5) x10^3/uL RBC (4.1-5.6) x10^6/uL Hgb (12.5-18.0) g/dL Hct (42-50) % MCV (78-100) fL MCH (26-32) pg MCHC (32-36) g/dL RDW (11.5-14.0) % Plt Count (150-450) x10^3/uL MPV (7.5-11.0) fL Gran % (36.0-66.0) % Immature Gran % (Auto) (0.00-0.4) % Nucleat RBC Rel Count (0.00-0.1) % Eos # (Auto) (0-0.5) x10^3/uL Immature Gran # (Auto) (0.00-0.03) x10^3u/L Absolute Lymphs (auto) (1.0-4.6) x10^3/uL Absolute Monos (auto) (0.0-1.3) x10^3/uL Absolute Nucleated RBC (0.00-0.01) x10^3u/L Lymphocytes % (24.0-44.0) % Monocytes % (0.0-12.0) % Eosinophils % (0.00-5.0) % Basophils % (0.0-0.4) % Absolute Granulocytes (1.4-6.9) x10^3/uL Basophils # (0-0.4) x10^3/uL PT 15.6 H (9.4-12.5) SECONDS INR 1.53 (0.8-3.0) APTT 33.9 (25.1-36.5) SECONDS D-Dimer 3.21 H* (0.0-0.50) mg/L Sodium (137-145) mmol/L Potassium (3.5-5.1) mmol/L Chloride (98-107) mmol/L Carbon Dioxide (22-30) mmol/L Anion Gap (5-15) MEQ/L BUN (9-20) mg/dL Creatinine (0.66-1.25) mg/dL Estimated GFR ML/MIN Glucose (74-106) mg/dL Lactic Acid (0.4-2.0) Calcium (8.4-10.2) mg/dL Magnesium (1.6-2.3) mg/dL Total Bilirubin (0.2-1.3) mg/dL AST (17-59) U/L ALT (0-50) U/L Alkaline Phosphatase (38-126) U/L Troponin I 0.013 (0.000-0.034) ng/mL NT-Pro-B Natriuret Pep (0-1800) pg/mL Serum Total Protein (6.3-8.2) g/dL Albumin (3.5-5.0) g/dL Urine Color (Yellow) Urine Appearance (Clear) Urine pH (4.6-8.0) Ur Specific [place] (1.005-1.030) Urine Protein (Negative) Urine Glucose (UA) (Negative) mg/dL Urine Ketones (Negative) Urine Blood (Negative) Urine Nitrite (Negative) Urine Bilirubin (Negative) Urine Urobilinogen (0.2) mg/dL Ur Leukocyte Esterase (Negative) U Hyaline Cast (Auto) (0-2) /LPF Urine Microscopic RBC (0-5) /HPF Urine Microscopic WBC (0-5) /HPF Ur Epithelial Cells (None Seen) /HPF Urine Bacteria (None Seen) /HPF Urine Culture Reflexed (NO) Influenza Type A Ag NEGATIVE (NEGATIVE) Influenza Type B Ag NEGATIVE (NEGATIVE) RSV (PCR) NEGATIVE (Negative) SARS-CoV-2 (PCR) NEGATIVE (NEGATIVE) 04/07/22 04/07/22 04/08/22 Range/Units 20:41 23:54 05:00 WBC (4.0-10.5) x10^3/uL RBC (4.1-5.6) x10^6/uL Hgb (12.5-18.0) g/dL Hct (42-50) % MCV (78-100) fL MCH (26-32) pg MCHC (32-36) g/dL RDW (11.5-14.0) % Plt Count (150-450) x10^3/uL MPV (7.5-11.0) fL Gran % (36.0-66.0) % Immature Gran % (Auto) (0.00-0.4) % Nucleat RBC Rel Count (0.00-0.1) % Eos # (Auto) (0-0.5) x10^3/uL Immature Gran # (Auto) (0.00-0.03) x10^3u/L Absolute Lymphs (auto) (1.0-4.6) x10^3/uL Absolute Monos (auto) (0.0-1.3) x10^3/uL Absolute Nucleated RBC (0.00-0.01) x10^3u/L Lymphocytes % (24.0-44.0) % Monocytes % (0.0-12.0) % Eosinophils % (0.00-5.0) % Basophils % (0.0-0.4) % Absolute Granulocytes (1.4-6.9) x10^3/uL Basophils # (0-0.4) x10^3/uL PT (9.4-12.5) SECONDS INR (0.8-3.0) APTT (25.1-36.5) SECONDS D-Dimer (0.0-0.50) mg/L Sodium (137-145) mmol/L Potassium (3.5-5.1) mmol/L Chloride (98-107) mmol/L Carbon Dioxide (22-30) mmol/L Anion Gap (5-15) MEQ/L BUN (9-20) mg/dL Creatinine (0.66-1.25) mg/dL Estimated GFR ML/MIN Glucose (74-106) mg/dL Lactic Acid (0.4-2.0) Calcium (8.4-10.2) mg/dL Magnesium (1.6-2.3) mg/dL Total Bilirubin (0.2-1.3) mg/dL AST (17-59) U/L ALT (0-50) U/L Alkaline Phosphatase (38-126) U/L Troponin I 0.014 0.013 (0.000-0.034) ng/mL NT-Pro-B Natriuret Pep (0-1800) pg/mL Serum Total Protein (6.3-8.2) g/dL Albumin (3.5-5.0) g/dL Urine Color Yellow (Yellow) Urine Appearance Clear (Clear) Urine pH 5.5 (4.6-8.0) Ur Specific [place] 1.010 (1.005-1.030) Urine Protein 30 (Negative) Urine Glucose (UA) 100 A (Negative) mg/dL Urine Ketones Negative (Negative) Urine Blood Small A (Negative) Urine Nitrite Negative (Negative) Urine Bilirubin Negative (Negative) Urine Urobilinogen 1.0 A (0.2) mg/dL Ur Leukocyte Esterase Negative (Negative) U Hyaline Cast (Auto) 6-10 A (0-2) /LPF Urine Microscopic RBC 6-10 A (0-5) /HPF Urine Microscopic WBC 6-10 A (0-5) /HPF Ur Epithelial Cells None Seen (None Seen) /HPF Urine Bacteria None Seen (None Seen) /HPF Urine Culture Reflexed NO (NO) Influenza Type A Ag (NEGATIVE) Influenza Type B Ag (NEGATIVE) RSV (PCR) (Negative) SARS-CoV-2 (PCR) (NEGATIVE) 04/08/22 04/08/22 Range/Units 05:00 05:00 WBC 6.1 (4.0-10.5) x10^3/uL RBC 5.11 (4.1-5.6) x10^6/uL Hgb 11.7 L (12.5-18.0) g/dL Hct 39.9 L (42-50) % MCV 78.1 (78-100) fL MCH 22.9 L (26-32) pg MCHC 29.3 L (32-36) g/dL RDW 20.9 H (11.5-14.0) % Plt Count 187 (150-450) x10^3/uL MPV 9.5 (7.5-11.0) fL Gran % (36.0-66.0) % Immature Gran % (Auto) (0.00-0.4) % Nucleat RBC Rel Count (0.00-0.1) % Eos # (Auto) (0-0.5) x10^3/uL Immature Gran # (Auto) (0.00-0.03) x10^3u/L Absolute Lymphs (auto) (1.0-4.6) x10^3/uL Absolute Monos (auto) (0.0-1.3) x10^3/uL Absolute Nucleated RBC (0.00-0.01) x10^3u/L Lymphocytes % (24.0-44.0) % Monocytes % (0.0-12.0) % Eosinophils % (0.00-5.0) % Basophils % (0.0-0.4) % Absolute Granulocytes (1.4-6.9) x10^3/uL Basophils # (0-0.4) x10^3/uL PT (9.4-12.5) SECONDS INR (0.8-3.0) APTT (25.1-36.5) SECONDS D-Dimer (0.0-0.50) mg/L Sodium 136 L (137-145) mmol/L Potassium 4.0 (3.5-5.1) mmol/L Chloride 101 (98-107) mmol/L Carbon Dioxide 32 H (22-30) mmol/L Anion Gap 7.0 (5-15) MEQ/L BUN 29 H (9-20) mg/dL Creatinine 1.28 H (0.66-1.25) mg/dL Estimated GFR 57.5 ML/MIN Glucose 104 (74-106) mg/dL Lactic Acid (0.4-2.0) Calcium 8.1 L (8.4-10.2) mg/dL Magnesium (1.6-2.3) mg/dL Total Bilirubin (0.2-1.3) mg/dL AST (17-59) U/L ALT (0-50) U/L Alkaline Phosphatase (38-126) U/L Troponin I (0.000-0.034) ng/mL NT-Pro-B Natriuret Pep 7100 H (0-1800) pg/mL Serum Total Protein (6.3-8.2) g/dL Albumin (3.5-5.0) g/dL Urine Color (Yellow) Urine Appearance (Clear) Urine pH (4.6-8.0) Ur Specific [place] (1.005-1.030) Urine Protein (Negative) Urine Glucose (UA) (Negative) mg/dL Urine Ketones (Negative) Urine Blood (Negative) Urine Nitrite (Negative) Urine Bilirubin (Negative) Urine Urobilinogen (0.2) mg/dL Ur Leukocyte Esterase (Negative) U Hyaline Cast (Auto) (0-2) /LPF Urine Microscopic RBC (0-5) /HPF Urine Microscopic WBC (0-5) /HPF Ur Epithelial Cells (None Seen) /HPF Urine Bacteria (None Seen) /HPF Urine Culture Reflexed (NO) Influenza Type A Ag (NEGATIVE) Influenza Type B Ag (NEGATIVE) RSV (PCR) (Negative) SARS-CoV-2 (PCR) (NEGATIVE) - Radiology Impressions Radiology Exams & Impressions: Radiology Procedures Category Date Time Status CHEST 1 VIEW (PORTABLE) Stat Exams 04/07/22 19:04 Taken - Other Procedures and Tests Respiratory Therapy 04/07/22 21:16 Oxygen NASAL CANNULA 2 lpm 04/07/22 23:39 Respiratory MDI BID 04/07/22 23:40 Respiratory Therapy Assessment DAILY Assessment/Plan (1) CHF exacerbation Current Visit: No Status: Acute Qualifiers: Assessment & Plan: will continue to diurese with IV lasix, currently ordered 100mg IV q8hrs might be a bit aggressive, will decrease to 40mg IV bid and continue entresto Code(s): I50.9 - HEART FAILURE, UNSPECIFIED (2) Atrial fibrillation Current Visit: No Status: Chronic Qualifiers: Assessment & Plan: continue coreg and eliquis Code(s): I48.91 - UNSPECIFIED ATRIAL FIBRILLATION (3) Diabetes mellitus Current Visit: No Status: Chronic Code(s): E11.9 - TYPE 2 DIABETES MELLITUS WITHOUT COMPLICATIONS (4) HTN (hypertension) Current Visit: No Status: Chronic Qualifiers: Code(s): I10 - ESSENTIAL (PRIMARY) HYPERTENSION
[2022-04-08] MEDS ORDERED: HUMALOG SQ PRN (08:11)
--- NOTE | 2022-04-08 08:46 | XRAY ---
Indication: Short of breath. Comparison: March 04, 2022 Portable chest again demonstrates cardiomegaly, diffuse pulmonary edema, and small bibasilar effusions favoring CHF. Superimposed pneumonia not completely excluded.
[2022-04-08] MEDS: Klor Con PO SCH ×2 (08:50→21:02)
[2022-04-08] MEDS ORDERED: NON-FORMULARY ITEM (Pravastatin Sodium [Pravachol] 40 MG Tablet) PO SCH (10:00)
[2022-04-08] MEDS: ZOCOR 20MG PO SCH (11:11)
[2022-04-08] MEDS: ENTRESTO 49 MG-51 MG TABLET PO SCH ×2 (11:11→21:02)
[2022-04-08] MEDS: Flomax 0.4 MG PO SCH (11:12)
[2022-04-08] MEDS: ELIQUIS 2.5 MG TABLET PO SCH ×2 (11:12→21:02)
[2022-04-08] MEDS: Coreg PO SCH ×2 (11:12→21:02)
[2022-04-08] MEDS ORDERED: Furosemide 100mg/10 ml Vial IV SCH (14:00)
[2022-04-08] MEDS: Lasix 40 MG/4 ML IV SCH (17:13)
[2022-04-09 04:46] LABS: Absolute Neutrophil Ct (ANC) 4.45 x10^3/uL (1.4-6.9); BASOPHIL % 0.5 % (0.0-0.4); Basophil (Absolute #) 0.03 x10^3/uL (0-0.4); Eosinophil % 1.4 % (0.00-5.0); Eosinophil (Absolute #) 0.08 x10^3/uL (0-0.5); Hematocrit 39.1 % (42-50); Hemoglobin 11.8 g/dL (12.5-18.0); IMMATURE GRAN # 0.02 x10^3u/L (0.00-0.03); IMMATURE GRAN % 0.3 % (0.00-0.4); Lymphocyte (Absolute #) 0.62 x10^3/uL (1.0-4.6); Lymphocytes % 10.8 % (24.0-44.0); Mean Cell Volume 78.4 fL (78-100); Mean Corpuscular Hemoglobin 23.6 pg (26-32); Mean Corpuscular Hgb Concent. 30.2 g/dL (32-36); Monocyte (Absolute #) 0.56 x10^3/uL (0.0-1.3); Monocytes % 9.7 % (0.0-12.0); Neutrophil % 77.3 % (36.0-66.0); Platelet Count 195 x10^3/uL (150-450); Red Blood Count 4.99 x10^6/uL (4.1-5.6); Red Cell Distribution Width 21.3 % (11.5-14.0); White Blood Count 5.8 x10^3/uL (4.0-10.5)
[2022-04-09 05:10] LABS: ANION GAP 5.2 MEQ/L (5-15); Creatinine 1 1.47 mg/dL (0.66-1.25); MAGNESIUM 2.3 mg/dL (1.6-2.3); Potassium 3.8 mmol/L (3.5-5.1)
[2022-04-09] MEDS: Lasix 40 MG/4 ML IV SCH ×2 (05:57→18:06)
[2022-04-09] MEDS: Advair Hfa 115/21 Common canister IH SCH ×2 (07:45→19:06)
[2022-04-09] MEDS: Spiriva 18 Mcg/Cap Inhaler IH SCH (07:45)
--- NOTE | 2022-04-09 08:23 | PCM.NOTE ---
Date and Time: 04/09/22 08 Subjective Assessment: denies complaints, excellent diuresis noted. still has swelling in the legs Objective Exam General Appearance: no apparent distress Neurologic Exam: alert, oriented x 3 Respiratory Exam: crackles/rales Cardiovascular Exam: irregular Gastrointestinal/Abdomen Exam: soft, No tenderness, No mass Extremity Exam: pedal edema, swelling OBJECTIVE DATA Vital Signs: Vital Signs - 24 hr Temp Pulse Resp BP Pulse Ox 04/09/22 07:47 99 H 16 99 04/09/22 06:57 98.2 F 105 H 16 84/58 98 04/09/22 04:00 97.7 F 98 H 18 89/55 94 L 04/08/22 23:21 98.2 F 97 H 17 84/53 100 04/08/22 19:07 97.8 F 107 H 16 80/53 99 04/08/22 18:54 133 H 14 97 04/08/22 16:00 98.0 F 93 H 16 85/53 99 04/08/22 11:55 98.2 F 95 H 16 97/66 98 04/08/22 09:10 119 H 16 98 Pain Assessment - Last Documented Pain Intensity 0 Intake and Output: Intake & Output 04/06/22 04/07/22 04/08/22 04/09/22 11:59 11:59 11:59 11:59 Intake Total 780 1290 Output Total 1725 3200 Balance -945 -1910 Weight 100.8 kg 96.2 kg Lab Results: Lab Results-Last 24 Hours 04/08/22 04/09/22 04/09/22 Range/Units 21:49 04:48 04:48 WBC 5.8 (4.0-10.5) x10^3/uL RBC 4.99 (4.1-5.6) x10^6/uL Hgb 11.8 L (12.5-18.0) g/dL Hct 39.1 L (42-50) % MCV 78.4 (78-100) fL MCH 23.6 L (26-32) pg MCHC 30.2 L (32-36) g/dL RDW 21.3 H (11.5-14.0) % Plt Count 195 (150-450) x10^3/uL MPV 10.0 (7.5-11.0) fL Gran % 77.3 H (36.0-66.0) % Immature Gran % (Auto) 0.3 (0.00-0.4) % Nucleat RBC Rel Count 0.0 (0.00-0.1) % Eos # (Auto) 0.08 (0-0.5) x10^3/uL Immature Gran # (Auto) 0.02 (0.00-0.03) x10^3u/L Absolute Lymphs (auto) 0.62 L (1.0-4.6) x10^3/uL Absolute Monos (auto) 0.56 (0.0-1.3) x10^3/uL Absolute Nucleated RBC 0.00 (0.00-0.01) x10^3u/L Lymphocytes % 10.8 L (24.0-44.0) % Monocytes % 9.7 (0.0-12.0) % Eosinophils % 1.4 (0.00-5.0) % Basophils % 0.5 (0.0-0.4) % Absolute Granulocytes 4.45 (1.4-6.9) x10^3/uL Basophils # 0.03 (0-0.4) x10^3/uL Sodium 138 (137-145) mmol/L Potassium 3.8 (3.5-5.1) mmol/L Chloride 98 (98-107) mmol/L Carbon Dioxide 38 H (22-30) mmol/L Anion Gap 5.2 (5-15) MEQ/L BUN 35 H (9-20) mg/dL Creatinine 1.47 H (0.66-1.25) mg/dL Estimated GFR 49.0 ML/MIN Glucose 122 H (74-106) mg/dL POC Glucometer 185 H (74 to 106) mg/dL Calcium 8.0 L (8.4-10.2) mg/dL Magnesium 2.3 (1.6-2.3) mg/dL 04/09/22 Range/Units 06:33 WBC (4.0-10.5) x10^3/uL RBC (4.1-5.6) x10^6/uL Hgb (12.5-18.0) g/dL Hct (42-50) % MCV (78-100) fL MCH (26-32) pg MCHC (32-36) g/dL RDW (11.5-14.0) % Plt Count (150-450) x10^3/uL MPV (7.5-11.0) fL Gran % (36.0-66.0) % Immature Gran % (Auto) (0.00-0.4) % Nucleat RBC Rel Count (0.00-0.1) % Eos # (Auto) (0-0.5) x10^3/uL Immature Gran # (Auto) (0.00-0.03) x10^3u/L Absolute Lymphs (auto) (1.0-4.6) x10^3/uL Absolute Monos (auto) (0.0-1.3) x10^3/uL Absolute Nucleated RBC (0.00-0.01) x10^3u/L Lymphocytes % (24.0-44.0) % Monocytes % (0.0-12.0) % Eosinophils % (0.00-5.0) % Basophils % (0.0-0.4) % Absolute Granulocytes (1.4-6.9) x10^3/uL Basophils # (0-0.4) x10^3/uL Sodium (137-145) mmol/L Potassium (3.5-5.1) mmol/L Chloride (98-107) mmol/L Carbon Dioxide (22-30) mmol/L Anion Gap (5-15) MEQ/L BUN (9-20) mg/dL Creatinine (0.66-1.25) mg/dL Estimated GFR ML/MIN Glucose (74-106) mg/dL POC Glucometer 160 H (74 to 106) mg/dL Calcium (8.4-10.2) mg/dL Magnesium (1.6-2.3) mg/dL Radiology Exams: Radiology Procedures Category Date Time Status CHEST 1 VIEW (PORTABLE) Stat Exams 04/07/22 19:04 Completed Multi-Disciplinary Progress Notes: Multi-Disciplinary Progress Notes 04/08/22 09:48 Case Management Note by Janey Villa PATIENT HAS [facility]. THEY WERE NOTIFIED PATIENT HERE OBS. THEY WILL NEED NOTIFIED AT TIME OF DC AT [phone]. THEY WILL NEED FAXED THE DC INSTRUCTIONS, DC MED LIST AND DC SUMMARY ( IF AVAILABLE) TO [phone] Initialized on 04/08/22 09:48 - END OF NOTE Assessment/Plan (1) CHF exacerbation Current Visit: No Status: Acute Qualifiers: Assessment & Plan: >4L from roach charted, improving clinically but still needs more fluid off via diuresis. continue IV lasix. echo reviewed and patient has low EF around 25%, continue entresto Code(s): I50.9 - HEART FAILURE, UNSPECIFIED (2) Atrial fibrillation Current Visit: No Status: Chronic Qualifiers: Code(s): I48.91 - UNSPECIFIED ATRIAL FIBRILLATION (3) Diabetes mellitus Current Visit: No Status: Chronic Code(s): E11.9 - TYPE 2 DIABETES MELLITUS WITHOUT COMPLICATIONS (4) HTN (hypertension) Current Visit: No Status: Chronic Qualifiers: Code(s): I10 - ESSENTIAL (PRIMARY) HYPERTENSION
[2022-04-09] MEDS: ELIQUIS 2.5 MG TABLET PO SCH ×2 (11:13→22:54)
[2022-04-09] MEDS: ZOCOR 20MG PO SCH (11:13)
[2022-04-09] MEDS: Coreg PO SCH ×2 (11:13→22:54)
[2022-04-09] MEDS: Flomax 0.4 MG PO SCH (11:14)
[2022-04-09] MEDS: Klor Con PO SCH ×2 (11:14→22:54)
[2022-04-09] MEDS: ENTRESTO 49 MG-51 MG TABLET PO SCH ×2 (11:14→22:54)
[2022-04-10 04:57] LABS: Absolute Neutrophil Ct (ANC) 5.19 x10^3/uL (1.4-6.9); BASOPHIL % 0.4 % (0.0-0.4); Basophil (Absolute #) 0.03 x10^3/uL (0-0.4); Eosinophil (Absolute #) 0.07 x10^3/uL (0-0.5); Hematocrit 38.8 % (42-50); Hemoglobin 11.2 g/dL (12.5-18.0); IMMATURE GRAN # 0.01 x10^3u/L (0.00-0.03); IMMATURE GRAN % 0.1 % (0.00-0.4); Lymphocyte (Absolute #) 0.85 x10^3/uL (1.0-4.6); Lymphocytes % 12.4 % (24.0-44.0); Mean Cell Volume 79.8 fL (78-100); Mean Corpuscular Hgb Concent. 28.9 g/dL (32-36); Mean Platelet Volume 9.8 fL (7.5-11.0); Monocytes % 10.2 % (0.0-12.0); Neutrophil % 75.9 % (36.0-66.0); Platelet Count 184 x10^3/uL (150-450); Red Blood Count 4.86 x10^6/uL (4.1-5.6); Red Cell Distribution Width 21.1 % (11.5-14.0); White Blood Count 6.9 x10^3/uL (4.0-10.5)
[2022-04-10 05:18] LABS: ANION GAP 4.1 MEQ/L (5-15); Calcium 7.9 mg/dL (8.4-10.2); Creatinine 1 1.34 mg/dL (0.66-1.25); EST GLOMERULAR FILTRATION RATE 54.5 ML/MIN; Potassium 4.3 mmol/L (3.5-5.1)
[2022-04-10] MEDS: Lasix 40 MG/4 ML IV SCH ×2 (05:40→18:47)
[2022-04-10 07:19] LABS: Slide Review 1 YES
[2022-04-10] MEDS: Advair Hfa 115/21 Common canister IH SCH ×2 (07:20→18:51)
[2022-04-10] MEDS: Spiriva 18 Mcg/Cap Inhaler IH SCH (07:21)
[2022-04-10] MEDS: Flomax 0.4 MG PO SCH (09:16)
[2022-04-10] MEDS: Coreg PO SCH ×2 (09:16→22:41)
[2022-04-10] MEDS: ELIQUIS 2.5 MG TABLET PO SCH ×2 (09:16→22:41)
[2022-04-10] MEDS: ENTRESTO 49 MG-51 MG TABLET PO SCH ×2 (09:16→22:41)
[2022-04-10] MEDS: Klor Con PO SCH ×2 (09:16→22:41)
[2022-04-10] MEDS: ZOCOR 20MG PO SCH (09:16)
--- NOTE | 2022-04-10 10:11 | PCM.NOTE ---
Date and Time: 04/10/22 1009 Subjective Assessment: breathing is stable, bp has been low. still has some swelling in lower extremities. he feels he is nearing his baseline. Objective Exam General Appearance: no apparent distress Neurologic Exam: alert, oriented x 3 Respiratory Exam: crackles/rales Cardiovascular Exam: irregular Gastrointestinal/Abdomen Exam: soft, No tenderness, No mass Extremity Exam: pedal edema, swelling OBJECTIVE DATA Vital Signs: Vital Signs - 24 hr Temp Pulse Resp BP Pulse Ox 04/10/22 07:39 101 H 16 95 04/10/22 07:38 98.4 F 98 H 16 76/55 97 04/10/22 04:00 98.6 F 86 20 82/50 98 04/10/22 00:00 98.9 F 96 H 20 76/52 97 04/09/22 19:51 99.1 F 95 H 24 97/58 99 04/09/22 19:06 108 H 20 96 04/09/22 16:00 98.0 F 97 H 16 81/52 99 04/09/22 11:55 98.0 F 109 H 16 101/59 97 Pain Assessment - Last Documented Pain Intensity 0 Intake and Output: Intake & Output 04/07/22 04/08/22 04/09/22 04/10/22 11:59 11:59 11:59 11:59 Intake Total 780 1530 2020 Output Total 1725 3200 2625 Balance -945 -0690 -605 Weight 100.8 kg 96.2 kg 96.7 kg Lab Results: Lab Results-Last 24 Hours 04/09/22 04/09/22 04/09/22 Range/Units 11:14 15:56 21:01 WBC (4.0-10.5) x10^3/uL RBC (4.1-5.6) x10^6/uL Hgb (12.5-18.0) g/dL Hct (42-50) % MCV (78-100) fL MCH (26-32) pg MCHC (32-36) g/dL RDW (11.5-14.0) % Plt Count (150-450) x10^3/uL MPV (7.5-11.0) fL Gran % (36.0-66.0) % Immature Gran % (Auto) (0.00-0.4) % Nucleat RBC Rel Count (0.00-0.1) % Eos # (Auto) (0-0.5) x10^3/uL Immature Gran # (Auto) (0.00-0.03) x10^3u/L Absolute Lymphs (auto) (1.0-4.6) x10^3/uL Absolute Monos (auto) (0.0-1.3) x10^3/uL Absolute Nucleated RBC (0.00-0.01) x10^3u/L Lymphocytes % (24.0-44.0) % Monocytes % (0.0-12.0) % Eosinophils % (0.00-5.0) % Basophils % (0.0-0.4) % Absolute Granulocytes (1.4-6.9) x10^3/uL Basophils # (0-0.4) x10^3/uL Sodium (137-145) mmol/L Potassium (3.5-5.1) mmol/L Chloride (98-107) mmol/L Carbon Dioxide (22-30) mmol/L Anion Gap (5-15) MEQ/L BUN (9-20) mg/dL Creatinine (0.66-1.25) mg/dL Estimated GFR ML/MIN Glucose (74-106) mg/dL POC Glucometer 191 H 161 H 190 H (74 to 106) mg/dL Calcium (8.4-10.2) mg/dL Slides for Path Review 04/10/22 04/10/22 04/10/22 Range/Units 04:35 04:35 07:08 WBC 6.9 (4.0-10.5) x10^3/uL RBC 4.86 (4.1-5.6) x10^6/uL Hgb 11.2 L (12.5-18.0) g/dL Hct 38.8 L (42-50) % MCV 79.8 (78-100) fL MCH 23.0 L (26-32) pg MCHC 28.9 L (32-36) g/dL RDW 21.1 H (11.5-14.0) % Plt Count 184 (150-450) x10^3/uL MPV 9.8 (7.5-11.0) fL Gran % 75.9 H (36.0-66.0) % Immature Gran % (Auto) 0.1 (0.00-0.4) % Nucleat RBC Rel Count 0.0 (0.00-0.1) % Eos # (Auto) 0.07 (0-0.5) x10^3/uL Immature Gran # (Auto) 0.01 (0.00-0.03) x10^3u/L Absolute Lymphs (auto) 0.85 L (1.0-4.6) x10^3/uL Absolute Monos (auto) 0.70 (0.0-1.3) x10^3/uL Absolute Nucleated RBC 0.00 (0.00-0.01) x10^3u/L Lymphocytes % 12.4 L (24.0-44.0) % Monocytes % 10.2 (0.0-12.0) % Eosinophils % 1.0 (0.00-5.0) % Basophils % 0.4 (0.0-0.4) % Absolute Granulocytes 5.19 (1.4-6.9) x10^3/uL Basophils # 0.03 (0-0.4) x10^3/uL Sodium 136 L (137-145) mmol/L Potassium 4.3 (3.5-5.1) mmol/L Chloride 100 (98-107) mmol/L Carbon Dioxide 36 H (22-30) mmol/L Anion Gap 4.1 L (5-15) MEQ/L BUN 36 H (9-20) mg/dL Creatinine 1.34 H (0.66-1.25) mg/dL Estimated GFR 54.5 ML/MIN Glucose 155 H (74-106) mg/dL POC Glucometer 198 H (74 to 106) mg/dL Calcium 7.9 L (8.4-10.2) mg/dL Slides for Path Review YES Multi-Disciplinary Progress Notes: Multi-Disciplinary Progress Notes 04/10/22 09:54 Case Management Note by Janey Villa Addendum entered by Janey Villa 04/10/22 09:54: PATIENT ALREADY HAS HOME OXYGEN IN PLACE AT HOME Original Note: S/W PATIENT- NO CHANGE IN DC PLANS AT THIS TIME. HE CONTINUES TO PLAN TO DC HOME WITH HIS SPOUSE AND [facility] Initialized on 04/10/22 09:54 - END OF NOTE 04/09/22 10:48 Case Management Note by Janey Villa S/Maximiliano PATIENT- HE CONTINUES TO DENY ANY NEW NEEDS AT TIME OF DC. HE PLANS TO RETURN HOME TO HIS PLF Initialized on 04/09/22 10:48 - END OF NOTE Assessment/Plan (1) CHF exacerbation Current Visit: No Status: Acute Qualifiers: Assessment & Plan: continue IV lasix, labs reviewed and continues to have good urine output and improvement of peripheral edema and crackles but not to baseline/dry weight clinically Code(s): I50.9 - HEART FAILURE, UNSPECIFIED (2) Atrial fibrillation Current Visit: No Status: Chronic Qualifiers: Assessment & Plan: stable, continue eliquis Code(s): I48.91 - UNSPECIFIED ATRIAL FIBRILLATION (3) Diabetes mellitus Current Visit: No Status: Chronic Code(s): E11.9 - TYPE 2 DIABETES MELLITUS WITHOUT COMPLICATIONS (4) HTN (hypertension) Current Visit: No Status: Chronic Qualifiers: Code(s): I10 - ESSENTIAL (PRIMARY) HYPERTENSION
[2022-04-11] MEDS ORDERED: NEURONTIN ONE (01:14)
[2022-04-11] MEDS ORDERED: solu-MEDROL ONE (01:14)
[2022-04-11] MEDS ORDERED: Valium 5 MG ONE (01:14)
[2022-04-11] MEDS ORDERED: LIORESAL 10 MG ONE (01:15)
[2022-04-11] MEDS ORDERED: Sterile H2O 10 ml IJ ONE (01:15)
[2022-04-11] MEDS: Lasix 40 MG/4 ML IV SCH (06:21)
[2022-04-11] MEDS: Advair Hfa 115/21 Common canister IH SCH (07:40)
[2022-04-11] MEDS: Spiriva 18 Mcg/Cap Inhaler IH SCH (07:42)
[2022-04-11 07:49] VITALS: O2SAT 96
--- NOTE | 2022-04-11 08:36 | PCM.DS ---
Discharge Summary Date of Admission: 04/08/22 08:07 Admitting Physician: RENÉE DOBBS Primary Care Provider: CICI LAUREN Allergies Allergies No Known Drug Allergies Allergy (Verified 04/07/22 18:56) Hospital Summary - Hospital Course Hospital Course: patient admitted with increase in swelling, dyspnea and orthopnea. has diuresed very well and appears back to baseline today, feeling well and currently on his usual home oxygen flow rate of 2L daily and 3L at night. - Vitals & Intake/Output Vital Signs: Vital Signs Temperature 98.6 F 04/11/22 07:23 Pulse Rate 107 H 04/11/22 07:47 Respiratory Rate 16 04/11/22 07:47 Blood Pressure 85/52 04/11/22 07:23 O2 Sat by Pulse Oximetry 96 04/11/22 07:47 Intake & Output: Intake & Output 04/08/22 04/09/22 04/10/22 04/11/22 11:59 11:59 11:59 11:59 Intake Total 780 1530 2020 1260 Output Total 1725 3200 2625 2500 Balance -945 -1670 -605 -1240 Weight 100.8 kg 96.2 kg 96.7 kg 96.3 kg - Lab Result Diagrams: 04/10/22 04:35 04/10/22 04:35 Lab Results-Last 24 Hrs: Lab Results-Last 24 Hours 04/10/22 04/10/22 04/10/22 Range/Units 11:20 16:13 21:09 POC Glucometer 165 H 138 H 177 H (74 to 106) mg/dL 04/11/22 Range/Units 07:02 POC Glucometer 130 H (74 to 106) mg/dL Micro Results-Entire Visit: Accuchecks Date 04/11/22 Date 04/10/22 Date 04/10/22 Time 07:23 - Procedures and Test Procedures and Tests throughout Hospitalization: Therapy Orders & Screens 04/07/22 21:16 Oxygen NASAL CANNULA 2 lpm Comment: Diagnosis: CHF 04/07/22 23:40 Respiratory Therapy Assessment DAILY Comment: Diagnosis: CHF 04/08/22 00:01 RT Screen per Nursing Assess ONCE Comment: Protocol Order Physician Instructions: Greater than 3 points order RT Admission Screen Reason For Exam: Triggered on Admission Diagnosis: CHF Diagnosis: CHF Pneumonia: No Home O2: Yes Asthma: No CHF: No Home CPAP/BIPAP: No Home Nebs/MDI: Yes Total Points: 10 04/08/22 06:00 EKG IN AM Comment: Discharge Exam General Appearance: no apparent distress Respiratory Exam: crackles/rales (minimal, much improved) Cardiovascular Exam: irregular Extremity Exam: pedal edema (much improved) Final Diagnosis/Problem List - Final Discharge Diagnosis/Problem (1) CHF exacerbation Current Visit: No Status: Acute Assessment & Plan: on review of I/O patient has put out agnieszka 10L of urine since admission, appears to be at baseline currently and feeling much better, advised to see Dr Khoury in followup Code(s): I50.9 - HEART FAILURE, UNSPECIFIED (2) Atrial fibrillation Current Visit: No Status: Chronic Code(s): I48.91 - UNSPECIFIED ATRIAL FIBRILLATION (3) Diabetes mellitus Current Visit: No Status: Chronic Code(s): E11.9 - TYPE 2 DIABETES MELLITUS WITHOUT COMPLICATIONS (4) HTN (hypertension) Current Visit: No Status: Chronic Code(s): I10 - ESSENTIAL (PRIMARY) HYPERTENSION - Discharge Disposition: Home, Self-Care Condition: Fair Prescriptions: Continue Fluticasone/Salmeterol 115/21 [Advair Hfa 115/21 Common canister*] 2 puffs PO DAILY Pravastatin Sodium [Pravachol] 40 mg PO DAILY Metformin HCl 500 mg [Glucophage 500 MG] 500 mg PO DAILY Tamsulosin HCl 0.4 mg [Flomax 0.4 MG] 0.4 mg PO DAILY Sacubitril/Valsartan [Entresto 49 mg-51 mg Tablet] 1 tab PO BID Apixaban [Eliquis 2.5 mg Tablet] 2.5 mg PO BID #60 tablet Empagliflozin [Jardiance] 10 mg PO DAILY@0800 #30 tablet Carvedilol 3.125 mg [Coreg 3.125 MG] 6.25 mg PO BID Tiotropium [place] [Spiriva Handihaler] 18 mcg PO DAILY Furosemide 40 mg [Lasix 40 MG] 40 mg PO DAILY #3 tablet Potassium Chloride [Klor-Con 10] 10 meq PO DAILY Follow up with: CICI LAUREN [Primary Care Provider] - POOJA KHOURY [CONSULTING PHYSICIAN] -
[2022-04-11 09:33] VITALS: BP 79/50; PULSE 101
[2022-04-11] MEDS: Coreg PO SCH (09:39)
[2022-04-11] MEDS: ZOCOR 20MG PO SCH (09:40)
[2022-04-11] MEDS: Flomax 0.4 MG PO SCH (09:40)
[2022-04-11] MEDS: ENTRESTO 49 MG-51 MG TABLET PO SCH (09:40)
[2022-04-11] MEDS: Klor Con PO SCH (09:40)
[2022-04-11] MEDS: ELIQUIS 2.5 MG TABLET PO SCH (09:41)
== END 2022-04-11 11:36 | disposition home health service (06) | DRG 293 ==
LOC: ED 18:52 → MED SURG 22:58 → OBSVTOIN 04-08 08:07
PROVIDERS: ADMIT General Practice; ATTEND Family Medicine
DX: I11.0 Hypertensive heart disease with heart failure (principal); I50.9 Heart failure, unspecified; I48.91 Unspecified atrial fibrillation; E11.9 Type 2 diabetes mellitus without complications; R60.0 Localized edema; I25.10 Atherosclerotic heart disease of native coronary artery without angina pectoris; Z79.01 Long term (current) use of anticoagulants; Z79.899 Other long term (current) drug therapy; Z20.828 Contact with and (suspected) exposure to other viral communicable diseases; Z99.81 Dependence on supplemental oxygen; Z85.048 Personal history of other malignant neoplasm of rectum, rectosigmoid junction, and anus; Z95.1 Presence of aortocoronary bypass graft
CPT/HCPCS: 0241U; 36000; 36415; 71045; 80048; 80053; 81001; 82043; 82306; 82947; 83605; 83735; 83880; 83970; 84484; 85025; 85027; 85379; 85610; 85730; 93005; 93268; 94640; 94760; 94762; 96374; 99285; 99291; J1940; J2930; A9270-GY; G0378